=== PATIENT | male | born 1955 | race Caucasian/White ===

== ENCOUNTER 2023-05-29 17:22 | Emergency (ER) | payer BC, SELFPAY ==
[2023-05-29 17:23] VITALS: BP 181/112; PULSE 90; RESP 16; TEMP 36.4; O2SAT 99; BMI 33.5
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
[2023-05-29] MEDS: Diphth,Pertuss(Acell),Tet Vac 0.5 ML Vial IM (18:50)
[2023-05-29] MEDS: Lidocaine 1% (20 ml mdv) 20 ML Vial 5 ML INFILT (18:50)
--- OUTSIDE RECORDS SUMMARY | 2023-05-29 18:56 | XMS RPT_ITS | CCD ---
Author Name Unknown Address [address] [place] [address] Organization [facility] Care Team Providers Care [facility] Name Role Phone Mary Diez MD Primary Care Provider JOSEPHINE SHRESTHA Referring Unavailable MARY DIEZ Primary Care Unavailab JOSEPHINE Brown Referring Unavailable MARY DIEZ Primary Care Unavailab JOSEPHINE Brown Attending Unavailable MARY DIEZ Primary Care Unavailab MARY Fuchs Primary Care Unavailab ARACELIS Ireland Attending Unavailable MARY DIEZ Primary Care Unavailab ARACELIS Ireland Referring Unavailable MARY DIEZ Primary Care Unavailab JEER Abdi Attending Unavailable MARY DIEZ Primary Care Unavailab carlos a TESTJERE RENTERIA Attending Unavailable TESTJERE RENTERIA Referring Unavailable TESTRAJERE PINON Referring Unavailable MARY DIEZ Primary Care Unavailab EDYTA Greene Referring Unavailable TESTJERE RENTERIA Attending Unavailable MARY DIEZ Primary Care Unavailab EDYTA Greene Referring Unavailable MARY DIEZ Primary Care Unavailab MARY Fuchs Referring Unavailab MARY Fuchs Primary Care Unavailab MARY Fuchs Referring Unavailab le MARY DIEZ Primary Care Unavailab le MARY DIEZ Primary Care Unavailab MARY Fuchs Attending UnavailMary Phillips MD Primary Care Provider SEAN GERARDO Attending Unavailable MARY DIEZ Primary Care Unavailable MARY DIEZ Primary Care Unavailable MARY DIEZ Primary Care Unavailable DEVON MAKI Attending Unavailable MARY DIEZ Primary Care Unavailable DEVON MAKI Attending Unavailable [facility] Primary Care Unavailable GLYNN, DEVON Attending Unavailable KAEHLER, SEAN Referring Unavailable [facility] [place] Primary Care Unavailable GLYNN, DEVON Referring Unavailable [facility] [place] Primary Care Unavailable KAEHLER, SEAN Attending Unavailable KAEHLER, SEAN Referring Unavailable [facility] [place] Primary Care Unavailable GLYNN, DEVON Attending Unavailable [facility] [place] Primary Care Unavailable GLYNN, DEVON Admitting Unavailable GLYNN, DEVON Attending Unavailable GLYNN, DEVON Referring Unavailable [facility] [place] Primary Care Unavailable KAEHLER, SEAN Attending Unavailable KAEHLER, SEAN Referring Unavailable [facility] [place] Primary Care Unavailable GLYNN, DEVON Attending Unavailable [facility] Primary Care Unavailable GLYNN, DEVON Attending Unavailable CHELY ACEVEDO Referring Unavailable [facility] Primary Care Unavailable GLYNN, DEVON Admitting Unavailable GLYNN, DEVON Attending Unavailable [facility] Primary Care Unavailable Allergies Allergy Classification Reported Allergen(s) Allergy Type Date of Onset Reaction(s) Facility (20 sources) Onion extract Drug Allergy 08-27-2022 [facility] Medications Current Medications Medication Drug Class(es) Dates Sig (Normalized) Sig (Original) acetaminophen 325 mg / oxyCODONE hydrochloride 5 mg oral tablet (4 sources) Opioid Agonist Start: 01-20-2023 End: 01-27-2023 take 1 tablet by mouth every six hours as needed for pain oxyCODONE-acetami nophen (Percocet) 5-325 MG tablet Indications: Arthritis of ankle Take 1 tablet by mouth every 6 hours as needed for severe pain (7-10) for up to 7 days. 28 tablet 0 01/20/2023 01/27/2023 Active aspirin 81 mg delayed release oral tablet (20 sources) Platelet Aggregation Inhibitor, Nonsteroidal Anti-inflammatory Drug Start: 01-20-2023 End: 02-19-2023 take 1 tablet by mouth every twelve hours aspirin 81 MG EC tablet Indications: DVT prophylaxis after surgery Take 1 tablet (81 mg) by mouth in the morning and 1 tablet (81 mg) in the evening. 60 tablet 0 01/20/2023 02/19/2023 Active Completed/Discontinued Medications Medication Drug Class(es) Dates Sig (Normalized) Sig (Original) acetaminophen 500 mg oral tablet (2 sources) Start: 01-20-2023 End: 01-20-2023 acetaminophen (Tylenol) tablet 1,000 mg Blood Pressure Cuff - Home Use (20 sources) Start: 01-26-2019 Blood Pressure Cuff - Home Use Indications: Elevated blood pressure reading without diagnosis of hypertension BLOOD PRESSURE CUFF FOR HOME USE. DX: LABILE BLOOD PRESSURE 1 Device 0 01/26/2019 Active Problems Active Problems Problem Classification Problem Date Documented Date Episodic/Chronic Diabetes mellitus with complications (3 sources) Polyneuropathy due to type 2 diabetes mellitus; Translations: [Type 2 diabetes mellitus with diabetic polyneuropathy] Onset: 11-19-2022 11-19-2022 Chronic Diabetes mellitus without complication (20 sources) Type 2 diabetes mellitus; Translations: [Type 2 diabetes mellitus without complications] Onset: 10-09-2018 10-09-2018 Chronic Disorders of lipid metabolism (4 sources) Mixed hyperlipidemia; Translations: [Mixed hyperlipidemia] Onset: 04-23-2022 Chronic Essential hypertension (4 sources) Hypertensive disorder; Translations: [Essential (primary) hypertension] Onset: 11-19-2022 Chronic Immunizations and screening for infectious disease (1 source) Patient encounter status; Translations: [Encounter for immunization] Episodic Osteoarthritis (20 sources) Disorder of ankle joint; Translations: [Primary osteoarthritis, unspecified ankle and foot] Onset: 12-28-2021 Chronic Other circulatory disease (4 sources) Elevated blood-pressure reading without diagnosis of hypertension; Translations: [Elevated blood-pressure reading, without diagnosis of hypertension] Episodic Other connective tissue disease (3 sources) Tendinitis of right posterior tibial tendon; Translations: [Posterior tibial tendinitis, right leg] Episodic Other connective tissue disease (1 source) Swelling of lower limb; Translations: [Other specified soft tissue disorders] Episodic Other non-traumatic joint disorders (6 sources) Acute ankle pain; Translations: [Pain in right ankle and joints of right foot] Episodic Other non-traumatic joint disorders (1 source) Ankle pain; Translations: [Pain in right ankle and joints of right foot] Episodic Other nutritional; endocrine; and metabolic disorders (3 sources) Obese class I; Translations: [Obesity, unspecified] Onset: 11-19-2022 11-19-2022 Chronic Sprains and strains (3 sources) Tendon injury - lower limb; Translations: [Strain of muscle(s) and tendon(s) of peroneal muscle group at lower leg level, right leg, initial encounter] Episodic Unclassified (2 sources) Post-op; Translations: [Post-op] Onset: 04-08-2023 Varicose veins of lower extremity (3 sources) Venous varices; Translations: [Asymptomatic varicose veins of unspecified lower extremity] Onset: 11-19-2022 11-19-2022 Episodic Past or Other Problems Problem Classification Problem Date Documented Da te Episodic/Chronic Other aftercare (1 source) half-way (current) use of insulin; Translations: [Type 2 diabetes mellitus without complication, with long-term current use of insulin (HCC)] Onset: 04-23-2022 Episodic Other connective tissue disease (1 source) Other specified soft tissue disorders; Translations: [Localized swelling of lower extremity] Onset: 08-12-2022 Episodic Other non-traumatic joint disorders (3 sources) Pain in right ankle and joints of right foot; Translations: [Acute right ankle pain] Onset: 12-28-2021 Episodic Results Test Name Value Interpretation Reference Range Facil ity Vital Signs Date Time Vital Sign Value Performing Clinician Faci lity 04-08-2023 13:02-0500 Body height 182.9 cm Devon Maki MD Work Phone: [facility] [employer] 04-08-2023 13:02-0500 Body mass index (BMI) [Ratio] 33.09 kg/m2 Devon Maki MD Work Phone: [facility] [employer] 04-08-2023 13:02-0500 Body weight 110.68 kg Devon Maki MD Work Phone: [facility] [employer] 03-04-2023 12:48-0500 Body height 182.9 cm Devon Maki MD Work Phone: [facility] [employer] 03-04-2023 12:48-0500 Body mass index (BMI) [Ratio] 33.09 kg/m2 Devon Maki MD Work Phone: [facility] [employer] 03-04-2023 12:48-0500 Body weight 110.68 kg Devon Maki MD Work Phone: [facility] [employer] 02-02-2023 09:25-0500 Body height 182.9 cm Sean Gerardo PA Work Phone: [facility] [employer] 02-02-2023 09:25-0500 Body mass index (BMI) [Ratio] 33.09 kg/m2 Sean Gerardo PA Work Phone: [facility] [employer] 02-02-2023 09:25-0500 Body weight 110.68 kg Sean Gerardo PA Work Phone: [facility] [employer] 01-20-2023 12:35-0400 Body temperature 98.4 [degF] Devon Maki MD Work Phone: [facility] [employer] 01-20-2023 12:35-0400 Diastolic blood pressure 77 mm[Hg] Devon Maki MD Work Phone: [facility] [employer] 01-20-2023 12:35-0400 Heart rate 86 /min Devon Maki MD Work Phone: [facility] [employer] 01-20-2023 12:35-0400 Respiratory rate 16 /min Devon Maki MD Work Phone: [facility] [employer] 01-20-2023 12:35-0400 SaO2% (BldA) [Mass fraction] 96 % Devon Maki MD Work Phone: [facility] [employer] 01-20-2023 12:35-0400 Systolic blood pressure 117 mm[Hg] Devon Maki MD Work Phone: [facility] [employer] 01-20-2023 06:40-0400 Body height 182.9 cm Devon Maki MD Work Phone: [facility] [employer] 01-20-2023 06:40-0400 Body mass index (BMI) [Ratio] 33.09 kg/m2 Devon Maki MD Work Phone: [facility] [employer] 01-20-2023 06:40-0400 Body weight 110.68 kg Devon Maki MD Work Phone: [facility] [employer] 11-26-2022 12:35-0400 Body height 182.9 cm Devon Maki MD Work Phone: [facility] 11-26-2022 12:35-0400 Body mass index (BMI) [Ratio] 33.91 kg/m2 Devon Maki MD Work Phone: [facility] 11-26-2022 12:35-0400 Body weight 113.4 kg Devon Maki MD Work Phone: [facility] 11-26-2022 12:35-0400 Diastolic blood pressure 78 mm[Hg] Devon Maki MD Work Phone: [facility] 11-26-2022 12:35-0400 Heart rate 76 /min Devon Maki MD Work Phone: [facility] 11-26-2022 12:35-0400 Systolic blood pressure 157 mm[Hg] Devon Maki MD Work Phone: [facility] 11-19-2022 10:28-0400 Diastolic blood pressure 76 mm[Hg] Mary Diez MD Work Phone: [facility] 11-19-2022 10:28-0400 Systolic blood pressure 124 mm[Hg] Mary Diez MD Work Phone: [facility] 11-19-2022 09:03-0400 Body weight 109.95 kg Mary Diez MD Work Phone: [facility] 11-19-2022 09:03-0400 Heart rate 59 /min Mary Diez MD Work Phone: [facility] 11-19-2022 09:03-0400 Respiratory rate 16 /min Mary Diez MD Work Phone: [facility] 11-19-2022 09:03-0400 SaO2% (BldA) [Mass fraction] 98 % Mary Diez MD Work Phone: [facility] 08-27-2022 14:21-0400 Body height 182.9 cm Devon Maki MD Work Phone: [facility] 08-27-2022 14:21-0400 Body mass index (BMI) [Ratio] 33.91 kg/m2 Devon Maki MD Work Phone: [facility] 08-27-2022 14:21-0400 Body weight 113.4 kg Devon Maki MD Work Phone: [facility] 08-27-2022 14:21-0400 Diastolic blood pressure 86 mm[Hg] Devon Maki MD Work Phone: [facility] 08-27-2022 14:21-0400 Systolic blood pressure 140 mm[Hg] Devon Maki MD Work Phone: [facility] 07-29-2022 15:24-0400 Body weight 114.31 kg Josephine Shrestha [employer] Work Phone: [facility] 07-29-2022 15:24-0400 Diastolic blood pressure 86 mm[Hg] Josephine Shrestha [employer]ELOPER Work Phone: [facility] 07-29-2022 15:24-0400 Heart rate 64 /min Josephine Shrestha [employer]EL[employer] Work Phone: [facility] 07-29-2022 15:24-0400 Respiratory rate 16 /min Josephine Shrestha [employer]ELOPER Work Phone: [facility] 07-29-2022 15:24-0400 Systolic blood pressure 134 mm[Hg] Josephine Shrestha [employer]ELOPER Work Phone: [facility] 04-30-2022 15:02-0500 Body weight 112.49 kg Aracelis Antoine [employer]ELOPER Work Phone: [facility] 04-30-2022 15:02-0500 Diastolic blood pressure 78 mm[Hg] Aracelis Billingsleylogana [employer]ELOPER Work Phone: [facility] 04-30-2022 15:02-0500 Heart rate 85 /min Aracelis Antoine [employer]ELOPER Work Phone: [facility] 04-30-2022 15:02-0500 SaO2% (BldA) [Mass fraction] 98 % Aracelis Antoine [employer]ELOPER Work Phone: [facility] 04-30-2022 15:02-0500 Systolic blood pressure 138 mm[Hg] Aracelis Antoine [employer]ELOPER Work Phone: [facility] 12-03-2021 12:39-0400 Diastolic blood pressure 80 mm[Hg] Mi Nurse Work Phone: [facility] 12-03-2021 12:39-0400 Heart rate 57 /min Mi Nurse Work Phone: [facility] 12-03-2021 12:39-0400 Systolic blood pressure 138 mm[Hg] Mi Nurse Work Phone: [facility] 11-20-2021 09:06-0400 Body weight 108.5 kg Edyta Nunes [employer] Work Phone: [facility] 11-20-2021 09:06-0400 Diastolic blood pressure 62 mm[Hg] Edyta Nunes [employer]ELOPER Work Phone: [facility] 11-20-2021 09:06-0400 Heart rate 58 /min Edyta Nunes [employer]ELOPER Work Phone: [facility] 11-20-2021 09:06-0400 Respiratory rate 16 /min Edyta Nunes [employer]ELOPER Work Phone: [facility] 11-20-2021 09:06-0400 Systolic blood pressure 136 mm[Hg] Edyta Nunes [employer]ELOPER Work Phone: [facility] 11-06-2021 15:21-0400 Diastolic blood pressure 83 mm[Hg] Mi Nurse Work Phone: [facility] 11-06-2021 15:21-0400 Heart rate 48 /min Mi Nurse Work Phone: [facility] 11-06-2021 15:21-0400 Systolic blood pressure 179 mm[Hg] Mi Nurse Work Phone: [facility] 10-23-2021 09:45-0400 Diastolic blood pressure 85 mm[Hg] Mi Nurse Work Phone: [facility] 10-23-2021 09:45-0400 Heart rate 63 /min Mi Nurse Work Phone: [facility] 10-23-2021 09:45-0400 Systolic blood pressure 155 mm[Hg] Mi Nurse Work Phone: [facility] 10-07-2021 15:37-0400 Diastolic blood pressure 83 mm[Hg] Aracelis Podlogar [employer]ELOPER Work Phone: [facility] 10-07-2021 15:37-0400 Heart rate 62 /min Aracelis Podlogar [employer]ELOPER Work Phone: [facility] 10-07-2021 15:37-0400 Systolic blood pressure 160 mm[Hg] Aracelis Podlogar [employer]ELOPER Work Phone: [facility] 10-07-2021 14:52-0400 Body temperature 97.2 [degF] Aracelis Podlogar [employer]ELOPER Work Phone: [facility] 10-07-2021 14:52-0400 Body weight 107.05 kg Aracelis Podlogar [employer]ELOPER Work Phone: [facility] 10-07-2021 14:52-0400 Respiratory rate 18 /min Aracelis Podlogar [employer] DEVELOPER Work Phone: [facility] 10-07-2021 14:52-0400 SaO2% (BldA) [Mass fraction] 96 % Aracelis Podlogar [employer]ELOPER Work Phone: [facility] Encounters Encounter Date Encounter Type Care Provider Facility Start: 04-08-2023 End: 04-08-2023 ambulatory DEVON MAKI [facility] Start: 04-08-2023 End: 04-09-2023 ambulatory SEAN GERARDO [facility] Start: 04-08-2023 End: 04-08-2023 Postop follow up visit related to original px Devon Maki MD Work Phone: [facility] Procedures Date Procedure Procedure Detail Performing Clinician Start: 01-20-2023 Glucose quantitative blood xcpt reagent strip Devon Maki MD Work Phone: Start: 01-20-2023 FL GUIDANCE OR USE O NLY - NON-RESULTABLE Devon Maki MD Work Phone: Start: 01-20-2023 Glucose quantitative blood xcpt reagent strip Devon Maki MD Work Phone: Start: 11-26-2022 Follow-up visit Follow-up DEVON MAKI Start: 12-28-2021 Radex ankle complete minimum 3 views Jere Yovani Work Phone: Start: 12-11-2021 Mri any jt lower ext rem w/o contrast matrl Edyta Nunes [employer]ELOPER Work Phone: Start: 10-06-2021 Adult depression scr eening assessment Aracelis Antoine [employer]EL[employer] Work Phone: Start: 11-02-2018 Adult depression scr eening assessment Mary Diez MD Work Phone: Plan of Treatment Date Care Activity Detail Author Start: 09-24-2026 Urine microalbumin profile DTA P,TDAP,TD (2 - Td or Tdap) [facility] Start: 05-07-2024 COLOGUARD (FIT-DNA) COLOGUARD (FIT-D NA) [facility] Start: 05-07-2024 COLORECTAL CANCER SCREENING COLORECTAL CANCER SCREENING [facility] Start: 11-20-2023 3 comp foot exam completed DIABETIC FOOT EXAM [facility] Start: 11-20-2023 ANNUAL PCP TEAM DIE FORGER BRANDON DISEASE VISIT ANNUAL PCP TEAM CHRONIC DISEASE VISIT [facility] Start: 11-20-2023 BP CONTROLLED (<130/80) BP CONTROLLE D (<130/80) [facility] Start: 11-20-2023 COVID-19 VACCINE (4 - Moderna series) COVID-19 VACCINE (4 - Moderna series) [facility] Immunizations Immunization Date Immunization Notes Care Provider Valente blevins 10-07-2021 zoster vaccine recombinant Aracelis Antoine [employer]EL[employer] Work Phone: [facility] 04-10-2021 zoster vaccine recombinant Mary Diez MD Work Phone: [facility] Payers Date Payer Category Payer Unknown ELIZABETH VIZCARRA PPO [id number] 2019-Present [phone] [address] [place] [address] PPO [id number] 2019 Unknown [id number] 2019 Unknown [id number] Social History Date Type Detail Facility Start: 09-25-2018 End: 11-06-2021 Tobacco smoking status NHIS Ex-smoker [facility] Work Phone: Start: 09-25-2018 End: 08-27-2022 Tobacco use and exposure Smokeless tobacco non-user [facility] Work Phone: Start: 04-10-2021 End: 11-19-2022 Alcohol intake Ex-drinker (finding) [facility] Start: 09-25-2018 End: 11-06-2021 Tobacco Comment teenager, less than 1 year [facility] Start: 1955 Sex Assigned At Not on file [facility] Start: 09-19-2021 End: 11-26-2022 Exposure to SARS-CoV-2 (event) Not sure [facility] Start: 10-06-2021 History SDOH Alcohol Frequency 3 [facility] Start: 10-06-2021 History SDOH Alcohol Std Drinks 1 [facility] Start: 10-06-2021 History SDOH Social Connections Phone 5 [facility] Start: 10-06-2021 History SDOH Social Connections Get Together 4 [facility] Start: 10-06-2021 History SDOH Transport Med 2 [facility] History of tobacco use Current smoker [facility] Work Phone: Start: 08-27-2022 End: 11-19-2022 Tobacco smoking status ALIS Never smoked tobacco [facility] Start: 08-27-2022 End: 01-14-2023 History of Social function [facility] Start: 08-27-2022 End: 01-14-2023 Tobacco use panel [facility] Do you belong to any clubs or organizations such as denominational groups, unions, fraternal or athletic groups, or school groups? Yes [facility] Are you now , , , , never or living with a partner? [facility] How often to you hav e a drink containing alcohol? 2-4 times a month [facility] How many standard dr inks containing alcohol do you have on a typical day? 1 or 2 [facility] Frequency of Binge Drinking Not on file [facility] Do you feel stress - tense, restless, nervous, or anxious, or unable to sleep at night because your mind is troubled all the time - these days [OSQ] Not at all [facility] (I/We) worried whe er (my/our) food would run out before (I/we) got money to buy more. Never true [facility] In the past 12 month s, was there a time when you were not able to pay the mortgage or rent on time? No [facility] Start: 11-19-2022 Tobacco Comment Less than 100 cigarettes in his life [facility] Start: 01-20-2023 End: 04-08-2023 Alcohol intake Current drinker of alcohol (finding) [facility] Start: 01-20-[address] [facility] Medical Equipment Procedure Code Equipment Code Equipment Origin al Text Equipment Identifier Dates Test blood sugar (s) 1-2 times daily. Dx: Type 2 DM - Uncontrolled [id number] Insulin: No Start: 10-09-2018 Clinical Notes 06-23-2021 to 04-08-2023 Devon Maki MD - 04/08/2023 1:00 PM Jacinto Maki MD - 03/04/2023 1:30 PM ESTTelephone Encounter - Ange Rivera MA - 02/16/2023 4:12 PM FIDEL Villasenor - 02/02/2023 9:00 AM EST Note Date & Type Note Facility 04-08-2023 History of Presen t illness Narrative Images from the original note were not included. [facility] [address] [place] [id number] Dept: [phone] Dept Guilherme Saab 1955 [id number] 04/08/2023 HISTORY OF PRESENT ILLNESS: Guilherme is here for his 3 month(s) postoperative visit s/p right ankle and subtalar joint open fusion on 01/20/23. Guilherme reports that his pain has decreased since the surgery/last visit Guilherme reports that his swelling has decreased since the last visit Guilherme had been instructed to be weight bearing as tolerated on the right lower extremity. Guilherme has been compliant with his weight bearing restrictions. Has walked short distances at home in his shoe with no issues, heel pain is better in shoe than in boot Guilherme has not gone to PT. Guilherme denies fevers and chills and has not had calf pain or shortness of breath In general Guilherme feels that he has been doing well since the surgery Other issues or concerns that Guilherme would like addressed at this visit: he has no other issues or concerns to discuss Review of Systems Surgical Risk Factors: Allergies to Metals or Latex: NO Have you been treated for a blood clot: NO Have you had a history of bleeding disorder: NO Have you had a history of Anesthetic problems: NO Do you have tendency to bruise easily: NO Do you experience prolonged or excessive bleeding from cuts or after surgery: NO General/Constitutional: General: no Cancer: NO Acute/Chronic Infections: NO HEENT/Neck: Problems with theThroat: NO Problems with the Eyes: NO Problems with the Ears: NO Problems with the Nose and Sinuses: NO Endocrine: Problems with Diabetes: yes Problems with Thyroid Disorder: NO Thorax: Problems with the Heart: NO Problems with the Lung: no Cardiovascular: Problems with Circulation: NO Problems with High Blood pressure: yes Gastrointestinal: Problems with Ulcers: NO Problems with the Liver: no Problems with Bowel Habits: NO Genitourinary: Problems with the Genitals: NO Urinary problems: NO Kidney disease or stones: NO Skin: Any general problems: NO Neurologic: Dizziness, blurred vision, headaches, problems with balance : NO Seizures or Stroke: NO Psychiatric: Emotional or Psychological disorders: NO Depression or Anxiety: no PAST MEDICAL HISTORY: Past Medical History: Diagnosis Date Diabetes mellitus (HCC) Hyperlipidemia Hypertension Primary localized osteoarthrosis of ankle and foot RIGHT ANKLE ; SCHEDULED FOR THE SURGERY ON 01/20/23 AT [facility] Allergies Allergen Reactions Onion intolarance PHYSICAL EXAM: This is an age appropriate appearing male who is alert and oriented x 3. The patient appears well nourished. The patient is able to verbalize normally and seems to have a good understanding of his situation. Normocephalic and atraumatic Respiratory: No shortness of breath The right lower extremity is examined. Skin: ruborous in a dependent position Lymphatic: Moderate swelling of the ankle and hindfoot Vascular: Capillary refill in the foot/toes is brisk Neurologic: Sensation is intact except over the surgical incision site(s) Musculoskeletal: The calf is nontender to palpation. The patient is able to actively move the ankle/foot/toes The incisions are healed and benign Tenderness: no areas of tenderness on exam Gait: Near normal ambulation RADIOGRAPHIC INTERPRETATION: 3 weight bearing views of the Right ankle were obtained and the following is my interpretation of the findings present of the X-rays: continued healing of the subtalar joint and tibiotalar joint noted, more prominently in the subtalar joint. Hindfoot nail is in place with no signs of loosening or failure. Two screws in calcaneus without signs of loosening or failure, talar screw possibly has backed out slightly but is difficult to tell based on previously obtained imaging angles. REVIEW OF RELATED PREVIOUS DOCUMENTATION: No documents related to the current problem(s) were reviewed or no documents were available for review. LABORATORY RESULT INTERPRETATION: No labs were reviewed/No labs available for review DIAGNOSIS: Diagnosis Plan 1. Arthritis of ankle DME Order for Lace up brace MEDICAL DECISION MAKING: I had a discussion with Guilherme to make sure he has a good understanding of the diagnoses/issues that I think are present today and understands the plan moving forward. Guilherme is doing well overall. We discussed the plan moving forward. Guilherme will be seen back in 3 months. Elevation Instructions: Guilherme can have the foot/ankle down in a dependent position for as long as it is comfortable and should elevate if the foot/ankle becomes uncomfortable. Dressing instructions: Not applicable Shoe/Boot Instructions: Guilherme can now use a regular shoe. I want Guilherme to start transitioning from his aircast boot to a good supportive shoe. I want Guilherme to start by trying to walk in their shoe for one hour today and increase his shoe wear by one hour per day until he is able to spend a whole day in the shoe without pain. I instructed Guilherme to put the aircast boot back on if he starts to have increasing pain or swelling that is uncomfortable. I want Guilherme to start with a good stable shoe that will allow for swelling if present. If he is having trouble making the transition from the aircast boot to a shoe over the next few weeks then I want Guilherme to call me. Guilherme was given a brace today and was instructed on its use and care. I explained to Guilherme that the brace is meant to provide support to the ankle and it will restrict motion somewhat as well and it is hoped that this will help relieve some of his symptoms but may not completely resolve his current issue(s). If he has any problems or concerns regarding the brace or if it is not helping, he was instructed to call the office. Weight Bearing Instructions: Guilherme was instructed to be weight bearing as tolerated on the right lower extremity in his regular shoe with the lace-up ankle brace. If Guilherme has any problems maintaining this weight bearing status he was instructed to call me so that appropriate instructions can be given. Medications: No medication prescriptions were given/sent at today's visit. Xray at next visit: 3 weight bearing views Right ankle Follow up in about 3 months (around 07/08/2023) for Visit with Imaging, Post-Op. Electronically signed by Devon Maki MD [facility] Department of Orthopedic surgery 04/08/2023 4:17 PM Voice recognition was used for portions of this note and although it was reviewed prior to signing some incorrect words or phrases could be present. documented in this encounter [facility] 03-04-2023 History of Presen t illness Narrative Images from the original note were not included. [facility] [address] [place] [id number] Dept: [phone] Dept Guilherme Saab 1955 [id number] 03/04/2023 HISTORY OF PRESENT ILLNESS: Guilherme is here for his 6 week(s) postoperative visit s/p right ankle and subtalar joint fusion on 01/20/23. Guilherme reports that his pain has been minimal Guilherme reports that his swelling has been minimal Guilherme had been instructed to be nonweight bearing on the right lower extremity. Guilherme has been compliant with his weight bearing restrictions Guilherme has not started therapy yet Guilherme denies fevers and chills and has not had calf pain or shortness of breath In general Guilherme feels that he has been doing well since the surgery Other issues or concerns that Guilherme would like addressed at this visit: he has no other issues or concerns to discuss Review of Systems Surgical Risk Factors: Allergies to Metals or Latex: NO Have you been treated for a blood clot: NO Have you had a history of bleeding disorder: NO Have you had a history of Anesthetic problems: NO Do you have tendency to bruise easily: NO Do you experience prolonged or excessive bleeding from cuts or after surgery: NO General/Constitutional: General: no Cancer: NO Acute/Chronic Infections: NO HEENT/Neck: Problems with theThroat: NO Problems with the Eyes: NO Problems with the Ears: NO Problems with the Nose and Sinuses: NO Endocrine: Problems with Diabetes: yes Problems with Thyroid Disorder: NO Thorax: Problems with the Heart: NO Problems with the Lung: no Cardiovascular: Problems with Circulation: NO Problems with High Blood pressure: yes Gastrointestinal: Problems with Ulcers: NO Problems with the Liver: no Problems with Bowel Habits: NO Genitourinary: Problems with the Genitals: NO Urinary problems: NO Kidney disease or stones: NO Skin: Any general problems: NO Neurologic: Dizziness, blurred vision, headaches, problems with balance : NO Seizures or Stroke: NO Psychiatric: Emotional or Psychological disorders: NO Depression or Anxiety: no PAST MEDICAL HISTORY: Past Medical History: Diagnosis Date Diabetes mellitus (HCC) Hyperlipidemia Hypertension Primary localized osteoarthrosis of ankle and foot RIGHT ANKLE ; SCHEDULED FOR THE SURGERY ON 01/20/23 AT [facility] Allergies Allergen Reactions Onion intolarance PHYSICAL EXAM: This is an age appropriate appearing male who is alert and oriented x 3. The patient appears well nourished. The patient is able to verbalize normally and seems to have a good understanding of his situation. Normocephalic and atraumatic Respiratory: No shortness of breath The right lower extremity is examined. Skin: ruborous in a dependent position Lymphatic: Moderate swelling of the ankle Vascular: Capillary refill in the foot/toes is brisk Neurologic: Sensation is intact except over the surgical incision site(s) Musculoskeletal: The calf is nontender to palpation. The patient is able to actively move the ankle/foot/toes The incisions are healed and benign Tenderness: no areas of tenderness on exam Gait: Guilherme was examined in a wheelchair/gurney and gait was not evaluated RADIOGRAPHIC INTERPRETATION: 3 nonweightbearing views of the Right ankle were obtained and the following is my interpretation of the findings present of the X-rays: intact orthopedic hardware noted with no signs of loosening or failure. Interval bone healing noted of the fusions of the subtalar and tibiotalar joints. Intra-operative fibular cut noted. REVIEW OF RELATED PREVIOUS DOCUMENTATION: No documents related to the current problem(s) were reviewed or no documents were available for review. LABORATORY RESULT INTERPRETATION: No labs were reviewed/No labs available for review DIAGNOSIS: Diagnosis Plan 1. Arthritis of ankle MEDICAL DECISION MAKING: I had a discussion with Guilherme to make sure he has a good understanding of the diagnoses/issues that I think are present today and understands the plan moving forward. Guilherme is doing well overall. We discussed the plan moving forward. Guilherme will be seen back in 6 weeks. Elevation Instructions: Guilherme can have the foot/ankle down in a dependent position for as long as it is comfortable and should elevate if the foot/ankle becomes uncomfortable. Dressing instructions: Dressings were discontinued at a previous appointment. Shoe/Boot Instructions: Guilherme will stay in the boot he already has.. Guilherme can remove his boot for sleep, for bathing, anytime they are sitting or laying down and for ROM exercises which were discussed and demonstrated today. Weight Bearing Instructions: Guilherme was instructed to be weight bearing as tolerated on the right lower extremity in the aircast boot. If Guilherme has any problems maintaining this weight bearing status he was instructed to call me so that appropriate instructions can be given. Medications: No medication prescriptions were given/sent at today's visit. Xray at next visit: 3 weight bearing views Right ankle We discussed holding off on physical therapy at this time as there is not much for them to do currently, but if he feels he is struggling with gait at his next appointment we can send him for some physical therapy. Follow up in about 6 weeks (around 04/15/2023) for Visit with Imaging, Post-Op. Electronically signed by Devon Maki MD [facility] Department of Orthopedic surgery 03/04/2023 4:56 PM Voice recognition was used for portions of this note and although it was reviewed prior to signing some incorrect words or phrases could be present. documented in this encounter [facility] 02-16-2023 Telephone encounter Note [facility]aled [facility], [address], [facility] [address]. I also scanned a copy of the letter mailed with the form. [facility] 02-16-2023 Miscellaneous Notes Appealed mailed to [facility] Appeals, [address], [facility] [address]. I also scanned a copy of the letter mailed with the form. Right faxed to fax number given This is done Pt returning call with fax # [phone] Attention: Eliza Saab Thank you! Received [facility] determination of appeal. I notified the patient, he will call me back with a fax number to send the appeal to him to sign so we can start on the second external appeal on his behalf. They are indicating that he did not have standing xrays, but he has had [facility] xrays prior. I sent throught [employer] as well, It looks like patient is pretty active on it. documented in this encounter [facility] 02-15-2023 Telephone encounter Note Right faxed to fax number given This is done [facility] 02-10-2023 Telephone encounter Note Pt returning call with fax # [phone] Attention: Eliza Saab Thank you! [facility] 02-10-2023 Telephone encounter Note Received [employer] determination of appeal. I notified the patient, he will call me back with a fax number to send the appeal to him to sign so we can start on the second external appeal on his behalf. They are indicating that he did not have standing xrays, but he has had [facility] xrays prior. I sent throught [employer] as well, It looks like patient is pretty active on it. [facility] 02-02-2023 History of Presen t illness Narrative Images from the original note were not included. [facility] [address] [place] [address] [address] [facility] [address] Dept: [phone] Dept Guilherme Saab 1955 [id number] 02/02/2023 HISTORY OF PRESENT ILLNESS: Guilherme is here for his 2 week(s) postoperative visit s/p right ankle and subtalar joint open fusion. Guilherme reports that his pain has been minimal Guilherme reports that his swelling has been minimal Guilherme had been instructed to be nonweight bearing on the right lower extremity. Guilherme has been compliant with his weight bearing restrictions Guilherme has not started therapy yet Guilherme denies fevers and chills and has not had calf pain or shortness of breath In general Guilherme feels that he has been doing well since the surgery Other issues or concerns that Guilherme would like addressed at this visit: he has no other issues or concerns to discuss Review of Systems Surgical Risk Factors: Allergies to Metals or Latex: NO Have you been treated for a blood clot: NO Have you had a history of bleeding disorder: NO Have you had a history of Anesthetic problems: NO Do you have tendency to bruise easily: NO Do you experience prolonged or excessive bleeding from cuts or after surgery: NO General/Constitutional: General: no Cancer: NO Acute/Chronic Infections: NO HEENT/Neck: Problems with theThroat: NO Problems with the Eyes: NO Problems with the Ears: NO Problems with the Nose and Sinuses: NO Endocrine: Problems with Diabetes: yes Problems with Thyroid Disorder: NO Thorax: Problems with the Heart: NO Problems with the Lung: no Cardiovascular: Problems with Circulation: NO Problems with High Blood pressure: yes Gastrointestinal: Problems with Ulcers: NO Problems with the Liver: no Problems with Bowel Habits: NO Genitourinary: Problems with the Genitals: NO Urinary problems: NO Kidney disease or stones: NO Skin: Any general problems: NO Neurologic: Dizziness, blurred vision, headaches, problems with balance : NO Seizures or Stroke: NO Psychiatric: Emotional or Psychological disorders: NO Depression or Anxiety: no PAST MEDICAL HISTORY: Past Medical History: Diagnosis Date Diabetes mellitus (HCC) Hyperlipidemia Hypertension Primary localized osteoarthrosis of ankle and foot RIGHT ANKLE ; SCHEDULED FOR THE SURGERY ON 01/20/23 AT [facility] Allergies Allergen Reactions Onion intolarance PHYSICAL EXAM: This is an age appropriate appearing male who is alert and oriented x 3. The patient appears well nourished. The patient is able to verbalize normally and seems to have a good understanding of his situation. Normocephalic and atraumatic Respiratory: No shortness of breath The right lower extremity is examined. Skin: ruborous in a dependent position Lymphatic: Moderate swelling of the ankle, hindfoot, and midfoot Vascular: Capillary refill in the foot/toes is brisk Neurologic: Sensation is intact except over the surgical incision site(s) Musculoskeletal: The calf is nontender to palpation. The patient is able to actively move the ankle/foot/toes The incisions are healing well with good skin approximation and no drainage. Sutures removed in office. Tenderness: no areas of tenderness on exam Gait: Gait not evaluated RADIOGRAPHIC INTERPRETATION: No xrays were obtained or reviewed REVIEW OF RELATED PREVIOUS DOCUMENTATION: No documents related to the current problem(s) were reviewed or no documents were available for review. LABORATORY RESULT INTERPRETATION: No labs were reviewed/No labs available for review DIAGNOSIS: Diagnosis Plan 1. Arthritis of ankle DME Order for Aircast Boot MEDICAL DECISION MAKING: I had a discussion with Guilherme to make sure he has a good understanding of the diagnoses/issues that I think are present today and understands the plan moving forward. Guilherme is doing well overall. We discussed the plan moving forward. Guilherme will be seen back in 4 weeks. Elevation Instructions: Guilherme can have the foot/ankle down in a dependent position for as long as it is comfortable and should elevate if the foot/ankle becomes uncomfortable. Dressing instructions: Guilherme was instructed to start wearing a sock after today's visit Shoe/Boot Instructions: Guilherme was placed in an aircast boot today and given instructions on how to put it on and take it off and how to care for the boot. We explained that each time the boot is taken off the air needs to be removed from the boot so that when Guilherme puts it on the next time, his foot/ankle will fit properly. We explained that the foot and ankle should fit securely in the boot only on correctly and filled with enough air to make it snug but not tight. If Guilherme has pain caused by the boot or if he has any skin irritation from the boot, he was instructed to remove the boot and call the office for instructions. Guilherme can take the boot off for sleep, for bathing and to work on ROM of hisankle, foot and toes several times a day. Guilherme can remove his boot for sleep, for bathing, anytime they are sitting or laying down and for ROM exercises which were discussed and demonstrated today. Weight Bearing Instructions: Guilherme was instructed to be nonweight bearing on the right lower extremity in the aircast boot. If Guilherme has any problems maintaining this weight bearing status he was instructed to call me so that appropriate instructions can be given. Medications: No medication prescriptions were given/sent at today's visit. Xray at next visit: 3 nonweight bearing views Right ankle Follow up in about 4 weeks (around 03/02/2023) for Visit with Imaging, Post-Op. Electronically signed by FIDEL Bennett [facility] Department of Orthopedic surgery 02/02/2023 3:30 PM Voice recognition was used for portions of this note and although it was reviewed prior to signing some incorrect words or phrases could be present. documented in this encounter [facility] 01-20-2023 Note Patient: Guilherme Saab Procedure Summary Date: 01/20/23 Room / Location: [address] Operating Room Anesthesia Start: 805 Anesthesia Stop: 1118 Procedures: RIGHT OPEN ANKLE FUSION, SUBTALAR JOINT FUSION (Right: Ankle) ARTHRODESIS FOOT SUBTALAR (Right: Foot) Diagnosis: Primary osteoarthritis, unspecified ankle and foot (Primary osteoarthritis, unspecified ankle and foot [M19.079]) Surgeons: Devno Maki MD Responsible Provider: Alexei Betts Jr., MD Anesthesia Type: general, regional ASA Status: 2 Anesthesia Type: general, regional Vitals Value Taken Time BP 113/73 01/20/23 1121 Temp 99.3 01/20/23 1125 Pulse 91 01/20/23 1125 Resp 23 01/20/23 1125 SpO2 100 % 01/20/23 1125 Vitals shown include unfiled device data. Anesthesia Post Evaluation Patient location during evaluation: PACU Patient participation: waiting for patient participation Level of consciousness: responsive to verbal stimuli Pain management: satisfactory to patient Airway patency: patent Dental Injury: no Cardiovascular status: acceptable, blood pressure returned to baseline and hemodynamically stable Respiratory status: acceptable and spontaneous ventilation Hydration status: euvolemic Nausea/Vomiting: controlled No notable events documented. Patient can be discharged once all PACU criteria has been met. [facility] 01-20-2023 Note Patient: Guilherme Saab Procedure Summary Date: 01/20/23 Room / Location: [address] Operating Room Anesthesia Start: 805 Anesthesia Stop: 1118 Procedures: RIGHT OPEN ANKLE FUSION, SUBTALAR JOINT FUSION (Right: Ankle) ARTHRODESIS FOOT SUBTALAR (Right: Foot) Diagnosis: Primary osteoarthritis, unspecified ankle and foot (Primary osteoarthritis, unspecified ankle and foot [M19.079]) Surgeons: Devon Maki MD Responsible Provider: Alexei Betts Jr., MD Anesthesia Type: general, regional ASA Status: 2 Anesthesia Type: general, regional Vitals Value Taken Time BP 113/73 01/20/23 1121 Temp 99.3 01/20/23 1124 Pulse 93 01/20/23 1124 Resp 17 01/20/23 1124 SpO2 100 % 01/20/23 1124 Vitals shown include unfiled device data. Anesthesia Post Evaluation Patient location during evaluation: PACU Patient participation: waiting for patient participation Level of consciousness: responsive to verbal stimuli Pain score: 0 Pain management: satisfactory to patient Multimodal analgesia pain management approach Airway patency: patent Two or more strategies used to mitigate risk of obstructive sleep apnea Cardiovascular status: acceptable and hemodynamically stable Respiratory status: acceptable Hydration status: acceptable No notable events documented. MIPS #430 PONV Patient received an inhalational anesthetic (4554F) Patient does not exhibit three or more risk factors for PONV (X0430)) MIPS # 424 Perioperative Temperature Management Anesthesia time was 60 minutes or longer (4255F) Anesthesai administered was General (inhalational or TIVA) or Neuraxial block (X0424) At least one body temperature greater than 95.8F/35.5C achieved within the 30 mins immediately prior to or the 15 minutes immediately following anesthesia end time (G9771) MIPS #477 Multimodal Pain Management Not emergent case Patient was administered multimodal pain management (two or more drugs and/or interventions excluding systemic opioids) in the periopeartive period occurring at some time between 6 hours prior to anesthesia start time until discharged from PACU (G2148) MIPS #404 Anesthesiology Smoking Abstinence The patient is not a current smoker (e.g. cigarette, cigar, pipe, e-cigarette/vaping/marijuana) If no stop here (G9644) I completed my handoff to the receiving clinician during which we: 1. Identified the patient 2. Identified the responsible provider 3. Reviewed the pertinent medical history 4. Discussed the surgical course 5. Reviewed intra-op anesthesia management and issues during anesthesia 6. Set expectations for post-procedure period 7. Allowed opportunity for questions and acknowledgement of understanding. [facility] 01-20-2023 Miscellaneous Notes Phase II indicated, pt awake and talking, VS stable, pt dressed and ambulated to wheelchair without difficulty, home going instructions reviewed with patient, verbal understanding demonstrated and opportunity given for questions Pt sitting up and tolerating ice water, per request and at bedside Pt received from OR via cart, spont. Resp. With PRINCIPAL GIFTS OFFICER in attendance. Placed on monitor. Monitor alarms on in PACU Pre-operative Diagnosis: Right ankle and subtalar arthrosis Post-operative Diagnosis: Same Procedure: Right ankle and subtalar joint open fusion Components used: Synthes hindfoot fusion nail Anesthesia: General + regional Surgeon: Glynn Assistants: Akin Flores Estimated Blood Loss: 200 mL Complications: None Specimens: No Medications: Ancef 2 g IV and TXA 1 g IV Operative findings: Arthrosis of both the ankle and subtalar joints was present. The ankle and subtalar joints were debrided of all articular cartilage and with the ankle in a neutral position and in a few degrees of external rotation and the subtalar joint in 5 degree of valgus the hindfoot fusion nail was placed. Solid fixation was achieved utilizing the rosalinda. History of present illness: Guilherme is a 67 y.o. 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 Due to the arthrosis and his failure to respond to non-operative treatments, I made a recommendation for primary fusion with a hindfoot fusion nail. Operative report: I met with Guilherme in the preoperative area prior to the procedure and discussed the surgical plan once again and answered all of his questions related to the procedure and the expected post-operative course. The risks of surgery were discussed including but not limited to the risks of medications given for surgery, the risk of blood loss during and after surgery that can lead to the need for blood products in certain situations, infection, damage to normal structures that can lead to correction problems of pain or dysfunction, wound healing complications, possibility of fusion nonunion or malunion and late or chronic pain as a result of the surgical intervention. In addition potentially life threatening complications that can occur at the time of surgery and after surgery were discussed including but not limited to deep vein thrombosis, pulmonary embolism, myocardial infarction, stroke and . I initialed his Right lower extremity and signed his consent form. Guilherme was then taken for a popliteal block by the anesthesia staff. Guilherme was then brought to the operating room and placed in the supine position on the Operating Room table. Care was taken to identify and pad all bony prominences. A general anesthetic was then given by the anesthesia staff and an endotracheal tube was placed by the anesthesia staff. At all times during the operative procedure the patient's head neck and airway were protected by the anesthesia staff. A tourniquet was applied to the proximal thigh over cast padding. Total tourniquet time was less than 2 hours. The patient was then placed in a lateral decubitus position with the right side being up and and an axillary roll was placed on the left. The patient was checked to ensure all prominences were padded and the peroneal nerve at the knee was padded. The Right lower extremity was then prepped and draped in the usual orthopedic sterile fashion. A surgical timeout was then performed with the patient's identification, the procedure to be performed being reviewed with the consent form, verification that the patient had received preoperative antibiotics, and verification of the correct surgical side. Everyone in the operating room stopped what they were doing in order to participate in the timeout. This timeout was performed by myself, the circulating room nurse and the anesthesia staff. The patient's ASA was verified by the nurse dispatcher maintenance and the anesthesia staff. Fire risk was assessed. The operative extremity was then exanguinated using an Esmarch bandage and the tourniquet was inflated. A lateral sided incision was made over the lateral malleolus starting proximal to the ankle joint and syndesmosis. At the tip of the lateral malleolus the incision was curved along the tarsal sinus. The skin and subcutaneous tissues were divided with care taken to protect branches of the sural nerve and the superficial peroneal nerve. The incision was deepend down to the lateral malleolus. The lateral malleolus was fully exposed as was the lateral portion of the distal tibia. The distal portion of the incision was curved at the tip of the lateral malleolus creating a tarsal sinus approach. Kira retractors were then placed posterior and medial to the fibular shaft 12 cm proximal to the ankle joint. A small oscillating saw was then used to osteotomize the fibular shaft. The distal end of the fibula was then removed by detaching all remaining soft tissue attachments.The joint capsules for the ankle and subtalar joints were exposed and divided allowing for visualization of both joints. The joints were distracted using a pin distractor. The articular cartilage of the joints were then removed using currets, ronguers, osteotomes, and a myles. Once both the talar dome articular cartilage and the distal tibia articular cartilage was fully removed the opposing bone surfaces were scaled using a quarter-inch osteotome to increase the surface area for fusion and to provide areas for vascular channel ingrowth. The subtalar joint was prepared for fusion. Subtalar joint preparation constituted just the posterior facet portion of the joint. The subtalar joint was prepared for fusion using currets, ronguers, osteotomes, and a myles. A quarter-inch osteotome was then used to scaled the opposing bony surfaces of the subtalar joint. The ankle was then placed in neutral dorsiflexion and slight external rotation and the subtalar joint in 5 of valgus. A 3.2 mm threaded guidepin was then placed fluoroscopically on the plantar aspect of the calcaneus. The pin was started on the lateral view at the level of the lateral talar process. It was centered over the calcaneus and a medial lateral plane as well. This placed the pin in the distal third of the calcaneus as seen on the lateral fluoroscopic view. Once an adequate starting point was well visualized on the lateral view the pin was advanced across the calcaneus and across the subtalar joint into the talus. An AP view was then obtained to ensure that this pin was centered on the talus within the central portion of the talar dome as seen on the AP fluoroscopic view. The lateral view was once again checked to ensure that the pin crossed the subtalar joint at the level of the lateral talar process. The ankle was kept in a dorsiflexed position during this insertion. Once adequate pin placement had been performed a skin incision was placed over the plantar aspect of the heel with the center of the incision being the pin entry point. Blunt dissection was carried down with the hemostat through the soft tissues until the calcaneus was encountered. A soft tissue protector was placed and reaming was carried out to the tip of the pin but the cartilage of the talus was not violated. The reamer and guidepin were then removed. A 5 mm drill was then placed through the reamed tunnel and pushed through the articular cartilage of the talus. This drill was then centered on both the AP and lateral views in the tibial plafond and such that it would be in a center center position within the intramedullary canal on both the AP and lateral views once fully seated. When adequate placement had been achieved the drill was used to drill a 5 mm hole into the distal tibial plafond. The drill was removed and a ball-tipped guidewire was placed through the plantar incision, through the calcaneus, across the subtalar joint, across the talus and into the distal tibia. A ball-tipped guidewire was then advanced under fluoroscopic imaging on AP and lateral views within the instrumented canal of the tibia. Once the ball-tipped guidewire was correctly positioned it was measured and it was decided to place a 240 mm length nail. Reaming of the tibia was then carried up to a size 11 reamer. This reaming was performed over the ball-tipped guidewire. The reamer was then removed and a size 244 mm length by 10 mm diameter Synthes hindfoot fusion nail was placed over the ball-tipped guidewire with the valgus bend of the nail being maintained. This placed the hindfoot in 5 of valgus. Once the nail was fully seated as verified on lateral fluoroscopic imaging the external outrigger was placed in the P position and was utilized to place a helical blade through a posterior incision. The helical blade was placed after an appropriate incision was made, a 3.2 mm guidepin was first placed and verified in terms of its position and length on fluoroscopic imaging in the lateral plane. The outer cortex of the posterior tuberosity calcaneus was entered using an entry reamer and then the helical blade dressing room attendant was used placing it over the guidepin until the helical blade was fully seated. The length of the helical blade was 75 mm. A 6 mm diameter calcaneal locking screw was then placed just above the helical blade again using the outrigger as a guide. Appropriate drilling and measuring was performed prior to screw placement. The subtalar joint was then compressed by advancing the nail in a proximal direction by hitting the endcap with a mallet. A locking screw was then placed into the talus. This was performed by setting the outrigger to the T position and placing a drill sleeve through the talar slot until it rested on the posteriolateral talus. Drilling was then carried out under flouroscopic guidance. An appropriate length 6 mm diameter screw was then placed. The ankle joint was then compressed by advancing the nail in a proximal direction by hitting the endcap with a mallet. The outrigger was then switched from the L position to the end position for the lateral tibial locking screws. Utilizing the guide a single 5 mm screw was placed through the dynamic slotted hole in the rosalinda. This screw was placed after drilling through outrigger guide and measuring the depth through the lateral incision. A locking endcap was then placed within the distal end of the rosalinda. Final fluoroscopic images were obtained in AP oblique and lateral planes of the ankle and tibia to ensure proper alignment of the ankle and subtalar joints and to ensure proper position of the nail and screws. The helical blade endcap screw was then placed through the plantar incision site and threaded into the distal end of the hindfoot fusion nail and was locked into place holding the nail and helical blade in a locked position. The tourniquet was then released and any active bleeding was controlled using Bovie cautery. The wounds were thoroughly irrigated with copious amounts of sterile saline. The subcutaneous tissues were then closed utilizing 2-0 Vicryl. The skin was then closed utilizing 3-0 nylon. Dry sterile dressings were then applied. Guilherme was then awakened from his anesthetic, transferred to his hospital bed and taken to the recovery room in stable medical condition. Post-operative plan: Follow-up: Guilherme will follow-up in 2 weeks for his first post-operative check. Suture removal: his incision(s) was/were closed with nylon and the sutures can be removed if the incision(s) appear(s) healed Shoe instructions: At the first post-operative visit Guilherme will will be placed in a tall Aircast boot and will be allowed to remove the boot for sleep, for bathing and for ROM of the foot and ankle. Weight bearing: Guilherme will be instructed to be nonweight bearing on the right lower extremity in the aircast boot following the 2 week visit and this will be continued until the 6 week office visit. Follow-up plan with Dr Maki after 2 week visit: Guilherme should be scheduled to see Dr Maki at 6 weeks post-op for re-evaluation X-rays at 6 week follow-up: Guilherme will need 3 nonweight bearing views of the right ankle at the 6 week post-op visit documented in this encounter [facility] 01-20-2023 Note Formatting of this n ote might be different from the original. Phase II indicated, pt awake and talking, VS stable, pt dressed and ambulated to wheelchair without difficulty, home going instructions reviewed with patient, verbal understanding demonstrated and opportunity given for questions [facility] 01-20-2023 Note Formatting of this n ote might be different from the original. Phase II indicated, pt awake and talking, VS stable, pt dressed and ambulated to wheelchair without difficulty, home going instructions reviewed with patient, verbal understanding demonstrated and opportunity given for questions [facility] 01-20-2023 Note Formatting of this n ote might be different from the original. Pt sitting up and tolerating ice water, per request and at bedside [facility] 01-20-2023 Note Formatting of this n ote might be different from the original. Pt sitting up and tolerating ice water, per request and at bedside [facility] 01-20-2023 Note Formatting of this n ote might be different from the original. Pt received from OR via cart, spont. Resp. With PRINCIPAL GIFTS OFFICER in attendance. Placed on monitor. Monitor alarms on in PACU [facility] 01-20-2023 Note Formatting of this n ote might be different from the original. Pt received from OR via cart, spont. Resp. With PRINCIPAL GIFTS OFFICER in attendance. Placed on monitor. Monitor alarms on in PACU [facility] 01-20-2023 Note Airway Date/Time: 01/20/2023 8:12 AM Urgency: scheduled Airway not difficult General Information and Staff Patient location during procedure: Procedural Anesthesiologist: Alexei Betts Jr., MD Resident/PRINCIPAL GIFTS OFFICER: FRAN Cano CRNA Performed: PRINCIPAL GIFTS OFFICER Performed by: FRAN Cano CRNA Authorized by: FRAN Cano CRNA Indications and Patient Condition Indications for airway management: airway protection and anesthesia Sedation level: Asleep Preoxygenated: yes Mask difficulty assessment: 0 - not attempted Final Airway Details Final airway type: supraglottic airway Successful airway: Igel Size 5 Number of attempts at approach: 1 [facility] 01-20-2023 Note Peripheral Block Time Out: 01/20/2023 7:47 AM Patient location during procedure: holding area Start time: 01/20/2023 7:48 AM End time: 01/20/2023 8:00 AM Reason for block: at surgeon's request and post-op pain management Staffing Performed: KIMBERLY Resident/PRINCIPAL GIFTS OFFICER: FRAN Cano CRNA Preanesthetic Checklist Completed: patient identified, IV checked, site marked, risks and benefits discussed, surgical consent, monitors and equipment checked, pre-op evaluation and timeout performed Region: Lower Extremities Primary: Popliteal Secondary: Saphenous Peripheral Block Patient position: supine Prep: ChloraPrep Patient monitoring: heart rate, continuous pulse ox and court monitor O2: Room air Laterality: right Injection technique: single-shot Guidance: nerve stimulator and ultrasound guided -image retained in chart, tip of the needle identified by ultraound during injection. Local infiltration: lidocaine Infiltration strength: 1 % Dose: 3 mL Needle Needle: 22G X 80 mm Additional Notes 10 mL 0.5% Ropivacaine plain Saphenous 40 mL 0.375% Bupivacaine HCL with decadron sodium phosphate 0.01% & Epi 1:200,000 PF 01/20/2023 7:48 AM Assessment Injection assessment: negative aspiration for heme, no paresthesia on injection, incremental injection and local visualized surrounding nerve on ultrasound Paresthesia pain: none Heart rate change: no Slow fractionated injection: yes Required Documentation: Relevant anatomy identified (Nerves, Vessels, Muscles), Negative for blood on aspiration, Local anesthetic injected incrementally with intermittent aspiration every 5 mL, Normal resistance with injection, Local anesthetic spread visualized around nerves or plane., No EKG changes noted, No symptoms of toxicity and No paresthesias reported by patient during injection [facility] 01-20-2023 Note H&P reviewed. The fidel pro was examined and there are no changes to the H&P. [facility] 01-20-2023 Note Formatting of this n ote might be different from the original. 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 The ankle and subtalar joints were debrided of all articular cartilage and with the ankle in a neutral position and in a few degrees of external rotation and the subtalar joint in 5 degree of valgus the hindfoot fusion nail was placed. Solid fixation was achieved utilizing the rosalinda. History of present illness: Guilherme is a 67 y.o. 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 Due to the arthrosis and his failure to respond to non-operative treatments, I made a recommendation for primary fusion with a hindfoot fusion nail. Operative report: I met with Guilherme in the preoperative area prior to the procedure and discussed the surgical plan once again and answered all of his questions related to the procedure and the expected post-operative course. The risks of surgery were discussed including but not limited to the risks of medications given for surgery, the risk of blood loss during and after surgery that can lead to the need for blood products in certain situations, infection, damage to normal structures that can lead to intermediate designer problems of pain or dysfunction, wound healing complications, possibility of fusion nonunion or malunion and late or chronic pain as a result of the surgical intervention. In addition potentially life threatening complications that can occur at the time of surgery and after surgery were discussed including but not limited to deep vein thrombosis, pulmonary embolism, myocardial infarction, stroke and . I initialed his Right lower extremity and signed his consent form. Guilherme was then taken for a popliteal block by the anesthesia staff. Guilherme was then brought to the operating room and placed in the supine position on the Operating Room table. Care was taken to identify and pad all bony prominences. A general anesthetic was then given by the anesthesia staff and an endotracheal tube was placed by the anesthesia staff. At all times during the operative procedure the patient's head neck and airway were protected by the anesthesia staff. A tourniquet was applied to the proximal thigh over cast padding. Total tourniquet time was less than 2 hours. The patient was then placed in a lateral decubitus position with the right side being up and and an axillary roll was placed on the left. The patient was checked to ensure all prominences were padded and the peroneal nerve at the knee was padded. The Right lower extremity was then prepped and draped in the usual orthopedic sterile fashion. A surgical timeout was then performed with the patient's identification, the procedure to be performed being reviewed with the consent form, verification that the patient had received preoperative antibiotics, and verification of the correct surgical side. Everyone in the operating room stopped what they were doing in order to participate in the timeout. This timeout was performed by myself, the circulating room nurse and the anesthesia staff. The patient's ASA was verified by the nurse dispatcher maintenance and the anesthesia staff. Fire risk was assessed. The operative extremity was then exanguinated using an Esmarch bandage and the tourniquet was inflated. A lateral sided incision was made over the lateral malleolus starting proximal to the ankle joint and syndesmosis. At the tip of the lateral malleolus the incision was curved along the tarsal sinus. The skin and subcutaneous tissues were divided with care taken to protect branches of the sural nerve and the superficial peroneal nerve. The incision was deepend down to the lateral malleolus. The lateral malleolus was fully exposed as was the lateral portion of the distal tibia. The distal portion of the incision was curved at the tip of the lateral malleolus creating a tarsal sinus approach. Kira retractors were then placed posterior and medial to the fibular shaft 12 cm proximal to the ankle joint. A small oscillating saw was then used to osteotomize the fibular shaft. The distal end of the fibula was then removed by detaching all remaining soft tissue attachments.The joint capsules for the ankle and subtalar joints were exposed and divided allowing for visualization of both joints. The joints were distracted using a pin distractor. The articular cartilage of the joints were then removed using currets, ronguers, osteotomes, and a myles. Once both the talar dome articular cartilage and the distal tibia articular cartilage was fully removed the opposing bone surfaces were scaled using a quarter-inch osteotome to increase the surface area for fusion and to provide areas for vascular channel ingrowth. The subtalar joint was prepared for fusion. Subtalar joint preparation constituted just the posterior facet portion of the joint. The subtalar joint was prepared for fusion using currets, ronguers, osteotomes, and a myles. A quarter-inch osteotome was then used to scaled the opposing bony surfaces of the subtalar joint. The ankle was then placed in neutral dorsiflexion and slight external rotation and the subtalar joint in 5 of valgus. A 3.2 mm threaded guidepin was then placed fluoroscopically on the plantar aspect of the calcaneus. The pin was started on the lateral view at the level of the lateral talar process. It was centered over the calcaneus and a medial lateral plane as well. This placed the pin in the distal third of the calcaneus as seen on the lateral fluoroscopic view. Once an adequate starting point was well visualized on the lateral view the pin was advanced across the calcaneus and across the subtalar joint into the talus. An AP view was then obtained to ensure that this pin was centered on the talus within the central portion of the talar dome as seen on the AP fluoroscopic view. The lateral view was once again checked to ensure that the pin crossed the subtalar joint at the level of the lateral talar process. The ankle was kept in a dorsiflexed position during this insertion. Once adequate pin placement had been performed a skin incision was placed over the plantar aspect of the heel with the center of the incision being the pin entry point. Blunt dissection was carried down with the hemostat through the soft tissues until the calcaneus was encountered. A soft tissue protector was placed and reaming was carried out to the tip of the pin but the cartilage of the talus was not violated. The reamer and guidepin were then removed. A 5 mm drill was then placed through the reamed tunnel and pushed through the articular cartilage of the talus. This drill was then centered on both the AP and lateral views in the tibial plafond and such that it would be in a center center position within the intramedullary canal on both the AP and lateral views once fully seated. When adequate placement had been achieved the drill was used to drill a 5 mm hole into the distal tibial plafond. The drill was removed and a ball-tipped guidewire was placed through the plantar incision, through the calcaneus, across the subtalar joint, across the talus and into the distal tibia. A ball-tipped guidewire was then advanced under fluoroscopic imaging on AP and lateral views within the instrumented canal of the tibia. Once the ball-tipped guidewire was correctly positioned it was measured and it was decided to place a 240 mm length nail. Reaming of the tibia was then carried up to a size 11 reamer. This reaming was performed over the ball-tipped guidewire. The reamer was then removed and a size 244 mm length by 10 mm diameter Synthes hindfoot fusion nail was placed over the ball-tipped guidewire with the valgus bend of the nail being maintained. This placed the hindfoot in 5 of valgus. Once the nail was fully seated as verified on lateral fluoroscopic imaging the external outrigger was placed in the P position and was utilized to place a helical blade through a posterior incision. The helical blade was placed after an appropriate incision was made, a 3.2 mm guidepin was first placed and verified in terms of its position and length on fluoroscopic imaging in the lateral plane. The outer cortex of the posterior tuberosity calcaneus was entered using an entry reamer and then the helical blade dressing room attendant was used placing it over the guidepin until the helical blade was fully seated. The length of the helical blade was 75 mm. A 6 mm diameter calcaneal locking screw was then placed just above the helical blade again using the outrigger as a guide. Appropriate drilling and measuring was performed prior to screw placement. The subtalar joint was then compressed by advancing the nail in a proximal direction by hitting the endcap with a mallet. A locking screw was then placed into the talus. This was performed by setting the outrigger to the T position and placing a drill sleeve through the talar slot until it rested on the posteriolateral talus. Drilling was then carried out under flouroscopic guidance. An appropriate length 6 mm diameter screw was then placed. The ankle joint was then compressed by advancing the nail in a proximal direction by hitting the endcap with a mallet. The outrigger was then switched from the L position to the end position for the lateral tibial locking screws. Utilizing the guide a single 5 mm screw was placed through the dynamic slotted hole in the rosalinda. This screw was placed after drilling through outrigger guide and measuring the depth through the lateral incision. A locking endcap was then placed within the distal end of the rosalinda. Final fluoroscopic images were obtained in AP oblique and lateral planes of the ankle and tibia to ensure proper alignment of the ankle and subtalar joints and to ensure proper position of the nail and screws. The helical blade endcap screw was then placed through the plantar incision site and threaded into the distal end of the hindfoot fusion nail and was locked into place holding the nail and helical blade in a locked position. The tourniquet was then released and any active bleeding was controlled using Bovie cautery. The wounds were thoroughly irrigated with copious amounts of sterile saline. The subcutaneous tissues were then closed utilizing 2-0 Vicryl. The skin was then closed utilizing 3-0 nylon. Dry sterile dressings were then applied. Guilherme was then awakened from his anesthetic, transferred to his hospital bed and taken to the recovery room in stable medical condition. Post-operative plan: Follow-up: Guilherme will follow-up in 2 weeks for his first post-operative check. Suture removal: his incision(s) was/were closed with nylon and the sutures can be removed if the incision(s) appear(s) healed Shoe instructions: At the first post-operative visit Guilherme will will be placed in a tall Aircast boot and will be allowed to remove the boot for sleep, for bathing and for ROM of the foot and ankle. Weight bearing: Guilherme will be instructed to be nonweight bearing on the right lower extremity in the aircast boot following the 2 week visit and this will be continued until the 6 week office visit. Follow-up plan with Dr Maki after 2 week visit: Guilherme should be scheduled to see Dr Maki at 6 weeks post-op for re-evaluation X-rays at 6 week follow-up: Guilherme will need 3 nonweight bearing views of the right ankle at the 6 week post-op visit [employer] Phone: 01-20-2023 Note Formatting of this n ote might be different from the original. 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 The ankle and subtalar joints were debrided of all articular cartilage and with the ankle in a neutral position and in a few degrees of external rotation and the subtalar joint in 5 degree of valgus the hindfoot fusion nail was placed. Solid fixation was achieved utilizing the rosalinda. History of present illness: Guilherme is a 67 y.o. 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 Due to the arthrosis and his failure to respond to non-operative treatments, I made a recommendation for primary fusion with a hindfoot fusion nail. Operative report: I met with Guilherme in the preoperative area prior to the procedure and discussed the surgical plan once again and answered all of his questions related to the procedure and the expected post-operative course. The risks of surgery were discussed including but not limited to the risks of medications given for surgery, the risk of blood loss during and after surgery that can lead to the need for blood products in certain situations, infection, damage to normal structures that can lead to correction problems of pain or dysfunction, wound healing complications, possibility of fusion nonunion or malunion and late or chronic pain as a result of the surgical intervention. In addition potentially life threatening complications that can occur at the time of surgery and after surgery were discussed including but not limited to deep vein thrombosis, pulmonary embolism, myocardial infarction, stroke and . I initialed his Right lower extremity and signed his consent form. Guilherme was then taken for a popliteal block by the anesthesia staff. Guilherme was then brought to the operating room and placed in the supine position on the Operating Room table. Care was taken to identify and pad all bony prominences. A general anesthetic was then given by the anesthesia staff and an endotracheal tube was placed by the anesthesia staff. At all times during the operative procedure the patient's head neck and airway were protected by the anesthesia staff. A tourniquet was applied to the proximal thigh over cast padding. Total tourniquet time was less than 2 hours. The patient was then placed in a lateral decubitus position with the right side being up and and an axillary roll was placed on the left. The patient was checked to ensure all prominences were padded and the peroneal nerve at the knee was padded. The Right lower extremity was then prepped and draped in the usual orthopedic sterile fashion. A surgical timeout was then performed with the patient's identification, the procedure to be performed being reviewed with the consent form, verification that the patient had received preoperative antibiotics, and verification of the correct surgical side. Everyone in the operating room stopped what they were doing in order to participate in the timeout. This timeout was performed by myself, the circulating room nurse and the anesthesia staff. The patient's ASA was verified by the nurse dispatcher maintenance and the anesthesia staff. Fire risk was assessed. The operative extremity was then exanguinated using an Esmarch bandage and the tourniquet was inflated. A lateral sided incision was made over the lateral malleolus starting proximal to the ankle joint and syndesmosis. At the tip of the lateral malleolus the incision was curved along the tarsal sinus. The skin and subcutaneous tissues were divided with care taken to protect branches of the sural nerve and the superficial peroneal nerve. The incision was deepend down to the lateral malleolus. The lateral malleolus was fully exposed as was the lateral portion of the distal tibia. The distal portion of the incision was curved at the tip of the lateral malleolus creating a tarsal sinus approach. Kira retractors were then placed posterior and medial to the fibular shaft 12 cm proximal to the ankle joint. A small oscillating saw was then used to osteotomize the fibular shaft. The distal end of the fibula was then removed by detaching all remaining soft tissue attachments.The joint capsules for the ankle and subtalar joints were exposed and divided allowing for visualization of both joints. The joints were distracted using a pin distractor. The articular cartilage of the joints were then removed using currets, ronguers, osteotomes, and a myles. Once both the talar dome articular cartilage and the distal tibia articular cartilage was fully removed the opposing bone surfaces were scaled using a quarter-inch osteotome to increase the surface area for fusion and to provide areas for vascular channel ingrowth. The subtalar joint was prepared for fusion. Subtalar joint preparation constituted just the posterior facet portion of the joint. The subtalar joint was prepared for fusion using currets, ronguers, osteotomes, and a myles. A quarter-inch osteotome was then used to scaled the opposing bony surfaces of the subtalar joint. The ankle was then placed in neutral dorsiflexion and slight external rotation and the subtalar joint in 5 of valgus. A 3.2 mm threaded guidepin was then placed fluoroscopically on the plantar aspect of the calcaneus. The pin was started on the lateral view at the level of the lateral talar process. It was centered over the calcaneus and a medial lateral plane as well. This placed the pin in the distal third of the calcaneus as seen on the lateral fluoroscopic view. Once an adequate starting point was well visualized on the lateral view the pin was advanced across the calcaneus and across the subtalar joint into the talus. An AP view was then obtained to ensure that this pin was centered on the talus within the central portion of the talar dome as seen on the AP fluoroscopic view. The lateral view was once again checked to ensure that the pin crossed the subtalar joint at the level of the lateral talar process. The ankle was kept in a dorsiflexed position during this insertion. Once adequate pin placement had been performed a skin incision was placed over the plantar aspect of the heel with the center of the incision being the pin entry point. Blunt dissection was carried down with the hemostat through the soft tissues until the calcaneus was encountered. A soft tissue protector was placed and reaming was carried out to the tip of the pin but the cartilage of the talus was not violated. The reamer and guidepin were then removed. A 5 mm drill was then placed through the reamed tunnel and pushed through the articular cartilage of the talus. This drill was then centered on both the AP and lateral views in the tibial plafond and such that it would be in a center center position within the intramedullary canal on both the AP and lateral views once fully seated. When adequate placement had been achieved the drill was used to drill a 5 mm hole into the distal tibial plafond. The drill was removed and a ball-tipped guidewire was placed through the plantar incision, through the calcaneus, across the subtalar joint, across the talus and into the distal tibia. A ball-tipped guidewire was then advanced under fluoroscopic imaging on AP and lateral views within the instrumented canal of the tibia. Once the ball-tipped guidewire was correctly positioned it was measured and it was decided to place a 240 mm length nail. Reaming of the tibia was then carried up to a size 11 reamer. This reaming was performed over the ball-tipped guidewire. The reamer was then removed and a size 244 mm length by 10 mm diameter Synthes hindfoot fusion nail was placed over the ball-tipped guidewire with the valgus bend of the nail being maintained. This placed the hindfoot in 5 of valgus. Once the nail was fully seated as verified on lateral fluoroscopic imaging the external outrigger was placed in the P position and was utilized to place a helical blade through a posterior incision. The helical blade was placed after an appropriate incision was made, a 3.2 mm guidepin was first placed and verified in terms of its position and length on fluoroscopic imaging in the lateral plane. The outer cortex of the posterior tuberosity calcaneus was entered using an entry reamer and then the helical blade dressing room attendant was used placing it over the guidepin until the helical blade was fully seated. The length of the helical blade was 75 mm. A 6 mm diameter calcaneal locking screw was then placed just above the helical blade again using the outrigger as a guide. Appropriate drilling and measuring was performed prior to screw placement. The subtalar joint was then compressed by advancing the nail in a proximal direction by hitting the endcap with a mallet. A locking screw was then placed into the talus. This was performed by setting the outrigger to the T position and placing a drill sleeve through the talar slot until it rested on the posteriolateral talus. Drilling was then carried out under flouroscopic guidance. An appropriate length 6 mm diameter screw was then placed. The ankle joint was then compressed by advancing the nail in a proximal direction by hitting the endcap with a mallet. The outrigger was then switched from the L position to the end position for the lateral tibial locking screws. Utilizing the guide a single 5 mm screw was placed through the dynamic slotted hole in the rosalinda. This screw was placed after drilling through outrigger guide and measuring the depth through the lateral incision. A locking endcap was then placed within the distal end of the rosalinda. Final fluoroscopic images were obtained in AP oblique and lateral planes of the ankle and tibia to ensure proper alignment of the ankle and subtalar joints and to ensure proper position of the nail and screws. The helical blade endcap screw was then placed through the plantar incision site and threaded into the distal end of the hindfoot fusion nail and was locked into place holding the nail and helical blade in a locked position. The tourniquet was then released and any active bleeding was controlled using Bovie cautery. The wounds were thoroughly irrigated with copious amounts of sterile saline. The subcutaneous tissues were then closed utilizing 2-0 Vicryl. The skin was then closed utilizing 3-0 nylon. Dry sterile dressings were then applied. Guilherme was then awakened from his anesthetic, transferred to his hospital bed and taken to the recovery room in stable medical condition. Post-operative plan: Follow-up: Guilherme will follow-up in 2 weeks for his first post-operative check. Suture removal: his incision(s) was/were closed with nylon and the sutures can be removed if the incision(s) appear(s) healed Shoe instructions: At the first post-operative visit Guilherme will will be placed in a tall Aircast boot and will be allowed to remove the boot for sleep, for bathing and for ROM of the foot and ankle. Weight bearing: Guilherme will be instructed to be nonweight bearing on the right lower extremity in the aircast boot following the 2 week visit and this will be continued until the 6 week office visit. Follow-up plan with Dr Maki after 2 week visit: Guilherme should be scheduled to see Dr Maki at 6 weeks post-op for re-evaluation X-rays at 6 week follow-up: Guilherme will need 3 nonweight bearing views of the right ankle at the 6 week post-op visit [employer] Phone: 01-20-2023 Hospital Discharg e instructions FIDEL Bennett - 01/20/2023 7:44 AM EDT Images from the original note were not included. SPLINT INSTRUCTIONS Keep your splint clean and dry. Do not put anything down in the splint to scratch. If your splint gets wet or starts to feel uncomfortable call Dr Maki immediately ([phone]). If you see any blood on the outside bandage reinforce it on the surface with gauze and an nick bandage and call Dr Maki [phone]. Do not walk or stand on your splint. You can rest the splint on the floor but do not put weight on it. You should get up and move around once or twice an hour based on your comfort level. You are not to be at bed rest meaning you need to get up and move around in order to prevent blood clots. It is OK to wiggle your toes and you can contract your calf muscle inside the splint as well. When you put your foot down it is normal for the toes to turn a bluish or purple color. Once you elevate the foot for a few minutes a normal pink color should return underneath the toenails. If the color does not change within 10 minutes after elevating call Dr. Maki. If you were given a boot by our office or by an emergency department/urgent care prior to surgery, please bring it to your first post-operative appointment with you as we will take off the splint at this appointment and will most likely transition you into the boot. ELEVATION Keep your foot/ankle elevated for comfort. Elevating your foot/ankle is the best way to control your swelling and pain. Elevation means keeping the toes at the level of your nose. If your leg is not elevated to that height then it is not truly elevated. This is Elevated This is not Elevated MEDICATIONS You have been given a prescription for a narcotic medication that is intended for postoperative pain control. This medication should be used judiciously to try and minimize your discomfort after surgery. The medication will not relieve all of your pain and you should not take large amounts of the medication in an attempt to be pain free. Please understand that narcotic medications can be addictive and they are intended to decrease but not eliminate your pain and should therefore be used in moderation. If you have questions regarding taking the narcotic medication and other medications that you are currently on please call the office. You cannot drive or operate machinery while taking the narcotic medication. You should not drink alcohol or use recreational drugs while taking the narcotic medication.The [facility] restricts the amount of pain pills that can be legally prescribed and no more than one prescription in a week can be given. If you require a refill of the pain medication it requires that someone come to the office in person as it cannot be called in to the pharmacy or E-prescribed. Please understand that there is a limit to the total amount of pain medication that can be prescribed so make every effort to take it only when needed. Unless otherwise instructed by Dr Maki you can take an over the counter anti-inflammatory to help with your pain as well. This includes but is not limited to Ibuprofen, Advil, Motrin, Alleve, etc. A prescription for baby aspirin was sent to your pharmacy and Dr. Maki wants you to take one tablet twice a day for 30 days after surgery. If you have any issues with the medication call Dr. Maki. This is intended to try to prevent blood clots. A prescription for a Vitamin D supplement was sent to your pharmacy to help your bone to heal. If you have any issues with the supplement call Dr. Maki. WEIGHTBEARING INSTRUCTIONS Dr Maki wants you to be nonweight bearing on the right lower extremity. You will continue this weight bearing restriction for the next 6 weeks If you have any problems maintaining this weight bearing status please call the office so that appropriate instructions can be given. FREQUENTLY ASKED QUESTIONS FREQUENTLY ASKED QUESTIONS If I am supposed to be non-weight bearing on the operative foot/ankle can I still rest the foot on the ground when I am sitting? Yes, it is OK to rest your operative foot on the ground when you are sitting. Is it normal to feel a cervantes of fluid or pressure in my foot/ankle when I put it down? Yes, after most foot, ankle or leg surgeries it is very common to feel immediate swelling or pressure in your foot, ankle and leg. Is it OK to put ice on my foot/ankle to help with the swelling and pain? After foot/ankle surgery elevating the foot/ankle is much better at relieving pain and swelling than ice. In many cases you bandage prevents the cold from getting to your skin. At your 2 week visit when your bandage is removed, icing the foot/ankle works much better and you can start it then. If I received a nerve block before surgery, how long will it last? A single shot nerve block can last anywhere from 8 hours to 36 hours on average, some patients' single shot blocks stop sooner and some can go a little longer. A catheter block (pain ball) lasts longer when you have it dialed down and it runs out faster if you have it dialed up. For most patients it lasts for a day and a half to 3 days. Can I shower or bathe after surgery? Yes, you can shower or bathe after surgery but you have to put a plastic bag over your splint/dressing to keep the splint/bandage absolutely dry. The splint/bandage is like a sponge and any water that gets in can damage your skin or cause your incision/incisions to open up and get infected. If your splint/bandage gets water in it, call Dr. Maki's office ([phone]) immediately and you will be instructed which office can see your the quickest to change your splint/bandage. FIDEL Bennett - 01/20/2023 7:44 AM EDT Weight-bearing and post-operative activity Dr Maki wants you to be nonweight bearing on the right lower extremity. You will continue this weight bearing restriction for the next 6 weeks If you have any problems maintaining this weight bearing status please call the office so that appropriate instructions can be given. Dr. Maki wants you to get up once per hour during the day to move around for a few minutes while following the above weight bearing orders. He does not want you to be in bed or on a couch all day not getting up. Getting up and moving once per hour helps to promote blood flow and is one way of trying to prevent a blood clot. Remember that when you get up it is normal for your foot/toes to change color and for you to feel fluid, pressure or throbbing (your heart beat) in your foot or toes. When you return to sitting down or laying down elevate your foot as it will lessen your swelling and be more comfortable. If you are having a hard time moving around during the day, let Dr Maki know. FIDEL Bennett - 01/20/2023 7:44 AM EDT Good nutrition is important when healing from an illness, injury, or surgery. Follow any nutrition recommendations given to you during your hospital stay. If you were given an oral nutrition supplement while in the hospital, continue to take this supplement at home. You can take it with meals, in-between meals, and/or before bedtime. These supplements can be purchased at most local grocery stores, pharmacies, and chain [employer]stores. If you have any questions about your diet or nutrition, call the hospital and ask for the dietitian. The following attachments cannot be sent through Care Everywhere.Moderate Sedation in Adults Discharge Instructions (Tamazight)documented in this encounter [facility] 01-20-2023 Attending History and physical note H&P reviewed. The patient was examined and there are no changes to the H&P. Source Note - Sat Pro Villegas PA-C - 01/14/2023 12:30 PM EDT Comprehensive PreSurgical History and Physical ? Name: Guilherme Saab : 1955 (Age-67 y.o.) Date of Service: Pt seen/examined on 01/14/2023 Procedure Information Date/Time: 01/20/23 0800 Procedures: RIGHT OPEN ANKLE FUSION, SUBTALAR JOINT FUSION (Right: Ankle) - 3 hours ARTHRODESIS FOOT SUBTALAR (Right: Foot) Location: [address] Operating Room Surgeons: Devon Maki MD Chief Complaint: RIGHT ANKLE /FOOT PAIN AND IT MAKE GRINDING NOISE GOING UP AND DOWN THE STEPS ASSESSMENT/PLAN: Patient is considered intermediate risk for this intermediate risk procedure/surgery noted above with no reducible risk factors. Based on the above evaluation, the benefits of the planned procedure likely exceed the risks. The patient is medically optimized to proceed with the planned procedure without any further cardiopulmonary testing. 1) RIGHT ANKLE PAIN DUE TO OA OF RIGHT ANKLE Managed per surgery 2) DM ; ON METFORMIN 3) HTN ; ON LISINOPRIL 4) HYPERLIPIDEMIA ; ON LIPITOR Visit Type: Pre-Admission Testing Visit Labs Ordered: NO - COMPLETE PRIOR TO PAT VISIT DONE ON 11/19/22 Sleep Referral Ordered: NO - NEGATIVE SCREEN PER SLEEP REFERRAL PROTOCOL Total time spent (which include face to face and non face to face encounters) : 40 minutes Toxic drug monitoring/narrow therapeutic index drug monitoring : # Drug name : LISINOPRIL # Route administered : ORALLY # Method of monitoring : LAB AND EKG PAT Protocol referenced includes: 1. Anesthesia Lab Protocol Orders 2. Perioperative Cardiovascular Risk Assessment 3. Anesthesia Assessment 4. Pain Assessment and Acute Pain Service Consult (if appropriate) 5. Medical Clearance/Consult from Internal Medicine ([facility]) 6. Shower/Wash Order (for designated surgeries) 7. GRACIELA Screen and Sleep Clinic Referral (if appropriate) History Of Present Illness: 67 y.o. male who presents with chief complaint mentioned above. Patient came to PAT along with his Per surgeon's note dated 08/27/22 Guilherme is a 67 y.o. male here today for evaluation of his right foot Guilherme states the problem has been present for 1 year. 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 Patient noted swelling, and stiffness in his right ankle. He reports having a grinding sensation going up and down steps. He reports there is a grinding sensation in his ankle while doing the steps. He has neuropathy and does not have any pain associated with the swelling or the symptoms in the ankle. He recalls having broken his ankle when he was a child and was in a cast for a period of time. Guilherme states the problem started gradually with no injuries occurring Guilherme has tried or has been treated with the following: walking aids (crutches, cane, a walker,knee scooter,wheelchair, etc) and OTC shoe inserts. Pt has seen the surgeon and elected for above procedure. Denies Hx of Asthma/COPD, GRACIELA, CAD, CHF, a fib, [place], TIA/CVA, DVT/PE Hx problems with anesthesia? - Denies Dental? - some missing teeth on the bottom nothing loose or broken no partials or dentures crowns Snore at night? - Past Medical History: Past Medical History: No date: Diabetes mellitus (HCC) No date: Hyperlipidemia No date: Hypertension No date: Primary localized osteoarthrosis of ankle and foot Comment: RIGHT ANKLE ; SCHEDULED FOR THE SURGERY ON 01/20/23 AT [facility] Past Surgical History: Past Surgical History: No date: TONSILLECTOMY Medications Prior to Admission: Current Outpatient Medications: atorvastatin (Lipitor) 20 MG tablet, TAKE 1 TABLET BY MOUTH ONCE DAILY AT BEDTIME FOR CHOLESTEROL, Disp: , Rfl: ELDERBERRY PO, Take by mouth., Disp: , Rfl: lisinopril 20 MG tablet, Take 20 mg by mouth daily., Disp: , Rfl: metFORMIN (Glucophage) 500 MG tablet, Take 500 mg by mouth., Disp: , Rfl: naproxen (Naprosyn) 250 MG tablet, Take by mouth., Disp: , Rfl: PAPAYA PO, Take by mouth., Disp: , Rfl: CHRONIC NARCOTIC USE: No Allergies: Onion If patient has opioid allergy, is it okay to take Acetaminophen: Yes Social History: TOBACCO: reports that he has never smoked. He has never used smokeless tobacco. ETOH: reports current alcohol use. Social History Substance and Sexual Activity Drug Use Never Family History: No family history on file. REVIEW OF SYSTEMS: Review of Systems Constitutional: Negative for fever. Respiratory: Negative for shortness of breath. Cardiovascular: Negative for chest pain. Gastrointestinal: Negative for nausea. Skin: Negative for pallor and rash. Pertinent positives as noted in the HPI. Physical Exam: Physical Exam Vitals and nursing note reviewed. Constitutional: Appearance: Normal appearance. HENT: Head: Normocephalic and atraumatic. Mouth/Throat: Mouth: Mucous membranes are moist. Cardiovascular: Rate and Rhythm: Normal rate and regular rhythm. Pulmonary: Effort: Pulmonary effort is normal. Breath sounds: Normal breath sounds. Musculoskeletal: General: Normal range of motion. Cervical back: Normal range of motion and neck supple. Skin: General: Skin is warm. Neurological: General: No focal deficit present. Mental Status: He is alert and oriented to person, place, and time. Psychiatric: Mood and Affect: Mood normal. Behavior: Behavior normal. Vitals: Vitals Value Taken Time BP 177/92 01/14/23 1258 Temp 37.1 C (98.7 F) 01/14/23 1247 Pulse 69 01/14/23 1258 Resp 16 01/14/23 1231 SpO2 97 % 01/14/23 1258 BP (!) 177/92 Pulse 69 Temp 37.1 C (98.7 F) (Temporal) Resp 16 Ht 1.829 m (6') Wt 112 kg (246 lb) SpO2 97% BMI 33.36 kg/m Labs: No results found for: WBC , HGB , HCT , MCV , PLT No results found for: NA , K , CL , CO2 , BUN , CREATININE , GLUCOSE , CALCIUM , PROT , BILIRUBINFL , ALKPHOS , AST , ALT , EGFR , GLOB Nima's Simple Cardiac Risk Index: Interpretation: 0 Points Class I 0.5% 1 Point Class II 1.3% 2 Points Class III 3.6% 3+ Points Class IV 9.1% METS Walk indoors, such as around the house (1.75 METs), Do light work around the house, such as dusting or washing dishes (2.70 METs), Take care of self, that is eating, dressing, bathing, using the toilet (2.75 METs), Do moderate work around the house such as vacuuming, sweeping floors, or carrying in groceries (3.50 METs), Do yardwork, such as raking leaves, weeding,or pushing a power mower (4.50 METs), Climb a flight of stairs or walk up a hill (5.50 METs) PAT Pain Score: Pain Score: 3 Postop Pain Management Plan (Pain consult ordered?): Pain consult not indicated at this time ? EKG: Done today: Encounter Date: 01/14/23 ECG 12 lead Result Value Heart Rate 62 QRSD Interval 114 QT Interval 416 QTC Interval 423 P Ashford 32 QRS Ashford -43 T Wave Ashford 53 ND Interval 144 Impression SINUS RHYTHM VENT PREEXCITATION, LEFT ACCESSORY PATHWAY No previous ECG available for comparison ECHO and EF:None on file No components found for: LVEF , LVEFMODE Electronically signed by: RODRIGO VILLEGAS PA-C Date: 01/14/2023 at 1:[address] [facility] 01-20-2023 History and physical note H&P reviewed. The patient was examined and there are no changes to the H&P. Source Note - Rodrigo Villegas PA-C - 01/14/2023 12:30 PM EDT Comprehensive PreSurgical History and Physical ? Name: Guilherme Saab : 1955 (Age-67 y.o.) Date of Service: Pt seen/examined on 01/14/2023 Procedure Information Date/Time: 01/20/23 0800 Procedures: RIGHT OPEN ANKLE FUSION, SUBTALAR JOINT FUSION (Right: Ankle) - 3 hours ARTHRODESIS FOOT SUBTALAR (Right: Foot) Location: [place] [id number] / [facility] Operating Room Surgeons: Devon Maki MD Chief Complaint: RIGHT ANKLE /FOOT PAIN AND IT MAKE GRINDING NOISE GOING UP AND DOWN THE STEPS ASSESSMENT/PLAN: Patient is considered intermediate risk for this intermediate risk procedure/surgery noted above with no reducible risk factors. Based on the above evaluation, the benefits of the planned procedure likely exceed the risks. The patient is medically optimized to proceed with the planned procedure without any further cardiopulmonary testing. 1) RIGHT ANKLE PAIN DUE TO OA OF RIGHT ANKLE Managed per surgery 2) DM ; ON METFORMIN 3) HTN ; ON LISINOPRIL 4) HYPERLIPIDEMIA ; ON LIPITOR Visit Type: Pre-Admission Testing Visit Labs Ordered: NO - COMPLETE PRIOR TO PAT VISIT DONE ON 11/19/22 Sleep Referral Ordered: NO - NEGATIVE SCREEN PER SLEEP REFERRAL PROTOCOL Total time spent (which include face to face and non face to face encounters) : 40 minutes Toxic drug monitoring/narrow therapeutic index drug monitoring : # Drug name : LISINOPRIL # Route administered : ORALLY # Method of monitoring : LAB AND EKG PAT Protocol referenced includes: 1. Anesthesia Lab Protocol Orders 2. Perioperative Cardiovascular Risk Assessment 3. Anesthesia Assessment 4. Pain Assessment and Acute Pain Service Consult (if appropriate) 5. Medical Clearance/Consult from Internal Medicine (IMS) 6. Shower/Wash Order (for designated surgeries) 7. GRACIELA Screen and Sleep Clinic Referral (if appropriate) History Of Present Illness: 67 y.o. male who presents with chief complaint mentioned above. Patient came to PAT along with his Per surgeon's note dated 08/27/22 Guilherme is a 67 y.o. male here today for evaluation of his right foot Guilherme states the problem has been present for 1 year. 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 Patient noted swelling, and stiffness in his right ankle. He reports having a grinding sensation going up and down steps. He reports there is a grinding sensation in his ankle while doing the steps. He has neuropathy and does not have any pain associated with the swelling or the symptoms in the ankle. He recalls having broken his ankle when he was a child and was in a cast for a period of time. Guilherme states the problem started gradually with no injuries occurring Guilherme has tried or has been treated with the following: walking aids (crutches, cane, a walker,knee scooter,wheelchair, etc) and OTC shoe inserts. Pt has seen the surgeon and elected for above procedure. Denies Hx of Asthma/COPD, GRACIELA, CAD, CHF, a fib, [place], TIA/CVA, DVT/PE Hx problems with anesthesia? - Denies Dental? - some missing teeth on the bottom nothing loose or broken no partials or dentures crowns Snore at night? - Past Medical History: Past Medical History: No date: Diabetes mellitus (HCC) No date: Hyperlipidemia No date: Hypertension No date: Primary localized osteoarthrosis of ankle and foot Comment: RIGHT ANKLE ; SCHEDULED FOR THE SURGERY ON 01/20/23 AT [facility] Past Surgical History: Past Surgical History: No date: TONSILLECTOMY Medications Prior to Admission: Current Outpatient Medications: atorvastatin (Lipitor) 20 MG tablet, TAKE 1 TABLET BY MOUTH ONCE DAILY AT BEDTIME FOR CHOLESTEROL, Disp: , Rfl: ELDERBERRY PO, Take by mouth., Disp: , Rfl: lisinopril 20 MG tablet, Take 20 mg by mouth daily., Disp: , Rfl: metFORMIN (Glucophage) 500 MG tablet, Take 500 mg by mouth., Disp: , Rfl: naproxen (Naprosyn) 250 MG tablet, Take by mouth., Disp: , Rfl: PAPAYA PO, Take by mouth., Disp: , Rfl: CHRONIC NARCOTIC USE: No Allergies: Onion If patient has opioid allergy, is it okay to take Acetaminophen: Yes Social History: TOBACCO: reports that he has never smoked. He has never used smokeless tobacco. ETOH: reports current alcohol use. Social History Substance and Sexual Activity Drug Use Never Family History: No family history on file. REVIEW OF SYSTEMS: Review of Systems Constitutional: Negative for fever. Respiratory: Negative for shortness of breath. Cardiovascular: Negative for chest pain. Gastrointestinal: Negative for nausea. Skin: Negative for pallor and rash. Pertinent positives as noted in the HPI. Physical Exam: Physical Exam Vitals and nursing note reviewed. Constitutional: Appearance: Normal appearance. HENT: Head: Normocephalic and atraumatic. Mouth/Throat: Mouth: Mucous membranes are moist. Cardiovascular: Rate and Rhythm: Normal rate and regular rhythm. Pulmonary: Effort: Pulmonary effort is normal. Breath sounds: Normal breath sounds. Musculoskeletal: General: Normal range of motion. Cervical back: Normal range of motion and neck supple. Skin: General: Skin is warm. Neurological: General: No focal deficit present. Mental Status: He is alert and oriented to person, place, and time. Psychiatric: Mood and Affect: Mood normal. Behavior: Behavior normal. Vitals: Vitals Value Taken Time BP 177/92 01/14/23 1258 Temp 37.1 C (98.7 F) 01/14/23 1247 Pulse 69 01/14/23 1258 Resp 16 01/14/23 1231 SpO2 97 % 01/14/23 1258 BP (!) 177/92 Pulse 69 Temp 37.1 C (98.7 F) (Temporal) Resp 16 Ht 1.829 m (6') Wt 112 kg (246 lb) SpO2 97% BMI 33.36 kg/m Labs: No results found for: WBC , HGB , HCT , MCV , PLT No results found for: NA , K , CL , CO2 , BUN , CREATININE , GLUCOSE , CALCIUM , PROT , BILIRUBINFL , ALKPHOS , AST , ALT , EGFR , GLOB Nima's Simple Cardiac Risk Index: Interpretation: 0 Points Class I 0.5% 1 Point Class II 1.3% 2 Points Class III 3.6% 3+ Points Class IV 9.1% METS Walk indoors, such as around the house (1.75 METs), Do light work around the house, such as dusting or washing dishes (2.70 METs), Take care of self, that is eating, dressing, bathing, using the toilet (2.75 METs), Do moderate work around the house such as vacuuming, sweeping floors, or carrying in groceries (3.50 METs), Do yardwork, such as raking leaves, weeding,or pushing a power mower (4.50 METs), Climb a flight of stairs or walk up a hill (5.50 METs) PAT Pain Score: Pain Score: 3 Postop Pain Management Plan (Pain consult ordered?): Pain consult not indicated at this time ? EKG: Done today: Encounter Date: 01/14/23 ECG 12 lead Result Value Heart Rate 62 QRSD Interval 114 QT Interval 416 QTC Interval 423 P Ashford 32 QRS Ashford -43 T Wave Ashford 53 ND Interval 144 Impression SINUS RHYTHM VENT PREEXCITATION, LEFT ACCESSORY PATHWAY No previous ECG available for comparison ECHO and EF:None on file No components found for: LVEF , LVEFMODE Electronically signed by: RODRIGO VILLEGAS PA-C Date: 01/14/2023 at 1:16 PM documented in this encounter [facility] 01-14-2023 Note Patient: Guilherme Saab Procedure Information Date/Time: 01/20/23 0800 Procedures: RIGHT OPEN ANKLE FUSION, SUBTALAR JOINT FUSION (Right: Ankle) - 3 hours ARTHRODESIS FOOT SUBTALAR (Right: Foot) Location: [address] Operating Room Surgeons: Devon Maki MD Relevant Problems No relevant active problems Past Medical History: Past Medical History: No date: Diabetes mellitus (HCC) No date: Hyperlipidemia No date: Hypertension No date: Primary localized osteoarthrosis of ankle and foot Comment: RIGHT ANKLE ; SCHEDULED FOR THE SURGERY ON 01/20/23 AT [facility] Past Surgical History: Past Surgical History: No date: TONSILLECTOMY Social History: TOBACCO: reports that he has never smoked. He has never used smokeless tobacco. ETOH: reports current alcohol use. Social History Substance and Sexual Activity Drug Use Never Family History: No family history on file. Screening: unknown Clinical information reviewed: Tobacco Allergies Meds Med Hx Surg Hx Fam Hx Soc Hx Physical Exam Airway Mallampati: III TM distance: >3 FB Neck ROM: full Mouth Open: normal Cardiovascular Dental Comments: Some missing teeth bottom, denies loose teeth Pulmonary Abdominal Other findings: Denies GERD Anesthesia Plan patient is NPO appropriate Any family history or previous problems with anesthesia no ASA 2 general and regional Any family history or previous problems with anesthesia no (Popliteal/Saphenous) The patient is not a current smoker. Anesthetic plan and risks discussed with patient. ERAS Type Tylenol, Pepcid GRACIELA Screening STOP-Bang Total Score: 4 Labs: No results found for: WBC , HGB , HCT , MCV , PLT No results found for: NA , K , CL , CO2 , BUN , CREATININE , GLUCOSE , CALCIUM , PROT , BILIRUBINFL , ALKPHOS , AST , ALT , EGFR , GLOB Pain Score: 3 No echocardiogram results found for the past 14 days 01/14/23 ECG 12-LEAD Impression SINUS RHYTHM Probable ventricular pre-excitation with pseudo-infarct pattern No previous ECG available for comparison Electronically Signed On 01-15-2023 12:13:29 EDT by [facility] 01-14-2023 Note Comprehensive PreSur gical History and Physical ? Name: Guilherme Saab : 1955 (Age-67 y.o.) Date of Service: Pt seen/examined on 01/14/2023 Procedure Information Date/Time: 01/20/23 0800 Procedures: RIGHT OPEN ANKLE FUSION, SUBTALAR JOINT FUSION (Right: Ankle) - 3 hours ARTHRODESIS FOOT SUBTALAR (Right: Foot) Location: [address] Operating Room Surgeons: Devon Maki MD Chief Complaint: RIGHT ANKLE /FOOT PAIN AND IT MAKE GRINDING NOISE GOING UP AND DOWN THE STEPS ASSESSMENT/PLAN: Patient is considered intermediate risk for this intermediate risk procedure/surgery noted above with no reducible risk factors. Based on the above evaluation, the benefits of the planned procedure likely exceed the risks. The patient is medically optimized to proceed with the planned procedure without any further cardiopulmonary testing. 1) RIGHT ANKLE PAIN DUE TO OA OF RIGHT ANKLE Managed per surgery 2) DM ; ON METFORMIN 3) HTN ; ON LISINOPRIL 4) HYPERLIPIDEMIA ; ON LIPITOR Visit Type: Pre-Admission Testing Visit Labs Ordered: NO - COMPLETE PRIOR TO PAT VISIT DONE ON 11/19/22 Sleep Referral Ordered: NO - NEGATIVE SCREEN PER SLEEP REFERRAL PROTOCOL Total time spent (which include face to face and non face to face encounters) : 40 minutes Toxic drug monitoring/narrow therapeutic index drug monitoring : # Drug name : LISINOPRIL # Route administered : ORALLY # Method of monitoring : LAB AND EKG PAT Protocol referenced includes: 1. Anesthesia Lab Protocol Orders 2. Perioperative Cardiovascular Risk Assessment 3. Anesthesia Assessment 4. Pain Assessment and Acute Pain Service Consult (if appropriate) 5. Medical Clearance/Consult from Internal Medicine (IMS) 6. Shower/Wash Order (for designated surgeries) 7. GRACIELA Screen and Sleep Clinic Referral (if appropriate) History Of Present Illness: 67 y.o. male who presents with chief complaint mentioned above. Patient came to PAT along with his Per surgeon's note dated 08/27/22 Guilherme is a 67 y.o. male here today for evaluation of his right foot Guilherme states the problem has been present for 1 year. 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 Patient noted swelling, and stiffness in his right ankle. He reports having a grinding sensation going up and down steps. He reports there is a grinding sensation in his ankle while doing the steps. He has neuropathy and does not have any pain associated with the swelling or the symptoms in the ankle. He recalls having broken his ankle when he was a child and was in a cast for a period of time. Guilherme states the problem started gradually with no injuries occurring Guilherme has tried or has been treated with the following: walking aids (crutches, cane, a walker,knee scooter,wheelchair, etc) and OTC shoe inserts. Pt has seen the surgeon and elected for above procedure. Denies Hx of Asthma/COPD, GRACIELA, CAD, CHF, a fib, [place], TIA/CVA, DVT/PE Hx problems with anesthesia? - Denies Dental? - some missing teeth on the bottom nothing loose or broken no partials or dentures crowns Snore at night? - Past Medical History: Past Medical History: No date: Diabetes mellitus (HCC) No date: Hyperlipidemia No date: Hypertension No date: Primary localized osteoarthrosis of ankle and foot Comment: RIGHT ANKLE ; SCHEDULED FOR THE SURGERY ON 01/20/23 AT [facility] Past Surgical History: Past Surgical History: No date: TONSILLECTOMY Medications Prior to Admission: Current Outpatient Medications: atorvastatin (Lipitor) 20 MG tablet, TAKE 1 TABLET BY MOUTH ONCE DAILY AT BEDTIME FOR CHOLESTEROL, Disp: , Rfl: ELDERBERRY PO, Take by mouth., Disp: , Rfl: lisinopril 20 MG tablet, Take 20 mg by mouth daily., Disp: , Rfl: metFORMIN (Glucophage) 500 MG tablet, Take 500 mg by mouth., Disp: , Rfl: naproxen (Naprosyn) 250 MG tablet, Take by mouth., Disp: , Rfl: PAPAYA PO, Take by mouth., Disp: , Rfl: CHRONIC NARCOTIC USE: No Allergies: Onion If patient has opioid allergy, is it okay to take Acetaminophen: Yes Social History: TOBACCO: reports that he has never smoked. He has never used smokeless tobacco. ETOH: reports current alcohol use. Social History Substance and Sexual Activity Drug Use Never Family History: No family history on file. REVIEW OF SYSTEMS: Review of Systems Constitutional: Negative for fever. Respiratory: Negative for shortness of breath. Cardiovascular: Negative for chest pain. Gastrointestinal: Negative for nausea. Skin: Negative for pallor and rash. Pertinent positives as noted in the HPI. Physical Exam: Physical Exam Vitals and nursing note reviewed. Constitutional: Appearance: Normal appearance. HENT: Head: Normocephalic and atraumatic. Mouth/Throat: Mouth: Mucous membranes are moist. Cardiovascular: Rate and Rhythm: Normal rate and regular rhythm. Pulmo (more content not included)... [facility] 01-14-2023 Note Comprehensive PreSur gical History and Physical ? Name: Guilherme Saab : 1955 (Age-67 y.o.) Date of Service: Pt seen/examined on 01/14/2023 Procedure Information Date/Time: 01/20/23 0800 Procedures: RIGHT OPEN ANKLE FUSION, SUBTALAR JOINT FUSION (Right: Ankle) - 3 hours ARTHRODESIS FOOT SUBTALAR (Right: Foot) Location: [address] Operating Room Surgeons: Devon Maki MD Chief Complaint: RIGHT ANKLE /FOOT PAIN AND IT MAKE GRINDING NOISE GOING UP AND DOWN THE STEPS ASSESSMENT/PLAN: Patient is considered intermediate risk for this intermediate risk procedure/surgery noted above with no reducible risk factors. Based on the above evaluation, the benefits of the planned procedure likely exceed the risks. The patient is medically optimized to proceed with the planned procedure without any further cardiopulmonary testing. 1) RIGHT ANKLE PAIN DUE TO OA OF RIGHT ANKLE Managed per surgery 2) DM ; ON METFORMIN 3) HTN ; ON LISINOPRIL 4) HYPERLIPIDEMIA ; ON LIPITOR Visit Type: Pre-Admission Testing Visit Labs Ordered: NO - COMPLETE PRIOR TO PAT VISIT DONE ON 11/19/22 Sleep Referral Ordered: NO - NEGATIVE SCREEN PER SLEEP REFERRAL PROTOCOL Total time spent (which include face to face and non face to face encounters) : 40 minutes Toxic drug monitoring/narrow therapeutic index drug monitoring : # Drug name : LISINOPRIL # Route administered : ORALLY # Method of monitoring : LAB AND EKG PAT Protocol referenced includes: 1. Anesthesia Lab Protocol Orders 2. Perioperative Cardiovascular Risk Assessment 3. Anesthesia Assessment 4. Pain Assessment and Acute Pain Service Consult (if appropriate) 5. Medical Clearance/Consult from Internal Medicine (IMS) 6. Shower/Wash Order (for designated surgeries) 7. GRACIELA Screen and Sleep Clinic Referral (if appropriate) History Of Present Illness: 67 y.o. male who presents with chief complaint mentioned above. Patient [facility] along with his Per surgeon's note dated 08/27/22 Guilherme is a 67 y.o. male here today for evaluation of his right foot uGilherme states the problem has been present for 1 year. 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 Patient noted swelling, and stiffness in his right ankle. He reports having a grinding sensation going up and down steps. He reports there is a grinding sensation in his ankle while doing the steps. He has neuropathy and does not have any pain associated with the swelling or the symptoms in the ankle. He recalls having broken his ankle when he was a child and was in a cast for a period of time. Guilherme states the problem started gradually with no injuries occurring Guilherme has tried or has been treated with the following: walking aids (crutches, cane, a walker,knee scooter,wheelchair, etc) and OTC shoe inserts. Pt has seen the surgeon and elected for above procedure. Denies Hx of Asthma/COPD, GRACIELA, CAD, CHF, a fib, [place], TIA/CVA, DVT/PE Hx problems with anesthesia? - Denies Dental? - some missing teeth on the bottom nothing loose or broken no partials or dentures crowns Snore at night? - Past Medical History: Past Medical History: No date: Diabetes mellitus (HCC) No date: Hyperlipidemia No date: Hypertension No date: Primary localized osteoarthrosis of ankle and foot Comment: RIGHT ANKLE ; SCHEDULED FOR THE SURGERY ON 01/20/23 AT [facility] Past Surgical History: Past Surgical History: No date: TONSILLECTOMY Medications Prior to Admission: Current Outpatient Medications: atorvastatin (Lipitor) 20 MG tablet, TAKE 1 TABLET BY MOUTH ONCE DAILY AT BEDTIME FOR CHOLESTEROL, Disp: , Rfl: ELDERBERRY PO, Take by mouth., Disp: , Rfl: lisinopril 20 MG tablet, Take 20 mg by mouth daily., Disp: , Rfl: metFORMIN (Glucophage) 500 MG tablet, Take 500 mg by mouth., Disp: , Rfl: naproxen (Naprosyn) 250 MG tablet, Take by mouth., Disp: , Rfl: PAPAYA PO, Take by mouth., Disp: , Rfl: CHRONIC NARCOTIC USE: No Allergies: Onion If patient has opioid allergy, is it okay to take Acetaminophen: Yes Social History: TOBACCO: reports that he has never smoked. He has never used smokeless tobacco. ETOH: reports current alcohol use. Social History Substance and Sexual Activity Drug Use Never Family History: No family history on file. REVIEW OF SYSTEMS: Review of Systems Constitutional: Negative for fever. Respiratory: Negative for shortness of breath. Cardiovascular: Negative for chest pain. Gastrointestinal: Negative for nausea. Skin: Negative for pallor and rash. Pertinent positives as noted in the HPI. Physical Exam: Physical Exam Vitals and nursing note reviewed. Constitutional: Appearance: Normal appearance. HENT: Head: Normocephalic and atraumatic. Mouth/Throat: Mouth: Mucous membranes are moist. Cardiovascular: Rate and Rhythm: Normal rate and regular rhythm. Pulmo (more content not included)... [facility] 01-06-2023 Note SURGERY SCHEDULING S HEET Procedure: right Open ankle fusion (21227) and Subtalar joint fusion (55623) CPT codes: see above Diagnosis: No primary diagnosis found. Location for Surgery: [facility] Schedule for: 3 hours Admission Type: Outpatient Medical Clearance: Yes with PCP/IMS Antibiotic: Ancef 2g IV Anesthesia: Popliteal block (single shot) + General Position and Table type: Lateral with Siegel Bag on Regular Table Radiology: Big C-arm Implants: Synthes Hindfoot Fusion Nail Equipment: High speed myles, Masala Foot Distractor, and Lamina Spreaders [facility] 11-26-2022 History of Presen t illness Narrative Images from the original note were not included. [facility] [address] [place] [id number] Dept: [phone] Dept Guilherme Saab 1955 [id number] 11/26/2022 HISTORY OF PRESENT ILLNESS: Guilherme returns for re-evaluation of his right ankle Guilherme reports that his pain is worse than at the last visit Guilherme reports that his swelling is worse than at the last visit Guilherme denies calf pain and shortness of breath Guilherme has been weight bearing as tolerated on the right lower extremity in a shoe. In general Guilherme feels that he is doing worse than at his last visit Other complaints or issues: None Review of Systems Surgical Risk Factors: Allergies to Metals or Latex: NO Have you been treated for a blood clot: NO Have you had a history of bleeding disorder: NO Have you had a history of Anesthetic problems: NO Do you have tendency to bruise easily: Yes Do you experience prolonged or excessive bleeding from cuts or after surgery: NO General/Constitutional: General: no Cancer: NO Acute/Chronic Infections: NO HEENT/Neck: Problems with theThroat: NO Problems with the Eyes: NO Problems with the Ears: NO Problems with the Nose and Sinuses: NO Endocrine: Problems with Diabetes: NO Problems with Thyroid Disorder: NO Thorax: Problems with the Heart: NO Problems with the Lung: no Cardiovascular: Problems with Circulation: NO Problems with High Blood pressure: NO Gastrointestinal: Problems with Ulcers: NO Problems with the Liver: no Problems with Bowel Habits: NO Genitourinary: Problems with the Genitals: NO Urinary problems: NO Kidney disease or stones: NO Skin: Any general problems: NO Neurologic: Dizziness, blurred vision, headaches, problems with balance : NO Seizures or Stroke: NO Psychiatric: Emotional or Psychological disorders: NO Depression or Anxiety: no PAST MEDICAL HISTORY: No past medical history on file. Allergies Allergen Reactions Onion intolarance PHYSICAL EXAM: BP (!) 157/78 Pulse 76 Ht 6' (1.829 m) Wt 250 lb (113 kg) BMI 33.91 kg/m This is an age appropriate appearing male who is alert and oriented x 3. The patient appears well nourished. Psychiatric: The patient is able to verbalize normally and seems to have a good understanding of his situation. right lower extremity examination Lymphatic System: Diffuse ankle swelling Vascular: Dorsalis pedis pulse: 2+ Posterior tibial pulse: 2+ Capillary refill is less than 3 seconds Skin/nails: Normal appearance, warm and dry Hair growth present on foot and toes Neurologic: Sensation intact to light touch throughout the foot and the ankle Muscle: Muscle strength testing: Anterior tibialis: 5/5 Posterior tibialis: 5/5 Peroneus brevis: 5/5 Peroneus longus: 5/5 Gastrocsoleus: 5/5 Mildly tender to palpation over the anterior aspect of the joint and tarsal sinus. Decreased range of motion of the ankle and hindfoot with crepitus. Gait and Station: Guilherme is able to ambulate with a mild limp Guilherme is able to stand unassisted and maintains balance RADIOGRAPHIC INTERPRETATION: 3 weight bearing views of the right ankle were obtained and the following is my interpretation of the findings present of the X-rays: Today's x-rays were compared to previous x-rays of the right ankle. No changes consistent with Charcot arthropathy are seen. Severe arthrosis of both the ankle and subtalar joints is noted with some collapse of the talar body. The collapse has not changed since the last x-rays. REVIEW OF RELATED PREVIOUS DOCUMENTATION: No documents related to the current problem(s) were reviewed or no documents were available for review. LABORATORY RESULT INTERPRETATION: No labs were reviewed/No labs available for review DIAGNOSIS: Diagnosis Plan 1. Arthritis of ankle MEDICAL DECISION MAKING: I had a discussion with Guilherme to make sure he has a good understanding of the diagnoses/issues that I think are present today and understands the plan moving forward. I explained to Guilherme and his family that at this point I do not see signs of Charcot arthropathy and the changes in his ankle likely represents severe chronic arthritis. He is feeling more grinding and slightly more discomfort than at his previous visit. We decided to see him back in 3 months for repeat weightbearing x-rays of the right ankle. If his symptoms are worsening and he has no signs of Charcot arthropathy his issues likely represents severe arthrosis and we briefly discussed ankle fusion. He would not be a good candidate for ankle replacement secondary to his neuropathy. At this point if he were to decide to have a fusion I would likely recommend a hindfoot fusion nail fusing both the ankle and subtalar joints. Xray needed at next visit: Right ankle 3 weight bearing views Follow up in about 3 months (around 02/25/2023) for Pre-visit Imaging. Electronically signed by Devon Maki MD [facility] Department of Orthopedic surgery 11/26/2022 12:51 PM Voice recognition was used for portions of this note and although it was reviewed prior to signing some incorrect words or phrases could be present. documented in this encounter [facility] 11-23-2022 Miscellaneous Notes Spoke with pt and information listed below given. Pt verbalizes understanding. Madison Shook LPN Phoned patient and message left for patient to return call to review results and recommendations. Message left for patient to call office back for update. Mary Caro LPN A1c improved to 7.0% from 7.2% - continue current medications, low carbohydrate diet and exercise. Urine albumin/creatinine ratio up some- continue with diet, exercise, low salt diet and stay well hydrated. The rest of his blood work is in acceptable ranges. Continue all over medications. Aracelis Antoine APRN.CNP documented in this encounter [facility] 11-19-2022 Note HNO ID: [id number] Author: Mary Diez MD Service: ? Author Type: Physician Type: Progress Notes Filed: 11/19/2022 11:01 AM Note Text: Chief Complaint Patient presents with: Physical HPI Guilherme Saab is a 67 year old male who presents here today for Above Complaints. No questions or concerns. DIABETES MELLITUS: Mr. Saab was last seen 6 months ago. Since our last visit he denies excessive thirst or increased frequency of urination, numbness, tingling or pain in extremities, new or unusual visual symptoms, and low sugar/hypoglycemic reactions. Follows a diabetic diet most of the time. He is compliant with medication(s) and is tolerating med(s) without any side effects. He reports checking his glucose on a infrequent to not at all basis. Patient's last HgA1C was Hemoglobin A1C (%) Date Value 04/23/2022 7.2 10/01/2021 6.8 04/08/2021 6.8 04/01/2020 7.4 ) Last Ophthalmology exam was more than [address] Pimentel. Last Podiatry exam was more than 12 months ago HTN: Mr. Saab indicates that he is feeling well and denies any symptoms referable to elevated blood pressure. Specifically denies headache, chest pain, palpitations, dyspnea, and peripheral edema. Patient denies any side effects of his medication(s) and is compliant with their regimen. He does not check BP's generally. Guilherme likes to exercise by bicycline. He watches his diet for sodium, low fat and low cholesterol most of the time. Last 3 Encounter BP Readings: Date: BP: 11/19/2022 142/82 07/29/2022 134/86 04/30/2022 138/78 PHQ-2 / Depression screen He in the past two weeks denies having felt down, depressed, hopeless or with little interest or pleasure in doing things. Not sure if he has living will or DPOA at home. FULL CODE. Refusing vaccinations and EKG today. Past medical history, appointments, medications, allergies reviewed. Previous Medical History PAST MEDICAL HISTORY Diagnosis Date Diabetes mellitus type II (HCC) Obesity (BMI 30.0-34.9) Previous Surgical History PAST SURGICAL HISTORY Procedure Laterality Date TONSILLECTOMY HX childhood VASECTOMY UNI/BI SPX W/POSTOP SEMEN EXAMS 1977 Family History FAMILY HISTORY Problem Relation Age of Onset No Known Problems Daughter No Known Problems Son Patient Allergies ALLERGIES No Known Allergies Current Medications Current Outpatient Medications on File Prior to Visit Medication Sig lisinopril (ZESTRIL) 20 mg tablet Take 1 tablet by mouth once daily. metFORMIN (GLUCOPHAGE) 500 mg tablet Take 1 tablet by mouth twice daily with meals. . atorvastatin (LIPITOR) 20 mg tablet Take 1 tablet by mouth daily at bedtime. For cholesterol. aspirin, enteric coated (ASPIRIN, ENTERIC COATED) 81 mg EC tablet Take 81 mg by mouth once daily. Blood Pressure Cuff - Home Use BLOOD PRESSURE CUFF FOR HOME USE. DX: LABILE BLOOD PRESSURE blood sugar diagnostic (BLOOD GLUCOSE TEST) test strip Test blood sugar(s) 1-2 times daily. Dx: Type 2 DM - Uncontrolled E11.65 Insulin: No Lancets lancets Test blood sugar(s) 1-2 times daily. Dx: Type 2 DM - Uncontrolled E11.65 Insulin: No diclofenac (VOLTAREN) 1 % topical gel Apply 2 g to affected area four times daily. (Patient not taking: No sig reported) No current facility-administered medications on file prior to visit. Social History Social History Tobacco Use Smoking status: Former Smokeless tobacco: Never Tobacco comments: teenager, less than 1 year Vaping Use Vaping Use: Never used Substance Use Topics Alcohol use: Not Currently Drug use: Not Currently Review of Symptoms REVIEW OF SYSTEMS GENERAL: No weight loss, malaise or fevers HEENT: Negative for frequent or significant headaches, No changes in hearing or vision, no nose bleeds or other nasal problems NECK: Negative for lumps, goiter, pain and significant neck swelling RESPIRATORY: Negative for cough, hemoptysis, wheezing, COPD, dyspnea or shortness of breath CARDIOVASCULAR: Negative for chest pain, leg swelling, hypertension, CHF or palpitations GI: No nausea, vomiting, or diarrhea : No history of dysuria, frequency or incontinence, No difficulty urinating, nocturia > 1 time per night or hematuria MUSCULOSKELETAL: Negative for joint pain or swelling, back pain or muscle pain SKIN: Negative for lesions, rash, and itching PSYCH: Negative for sleep disturbance, mood disorder and recent psychosocial stressors HEMATOLOGY/LYMPHOLOGY: Negative for prolonged bleeding, bruising easily or swollen nodes ENDOCRINE: Negative for cold or heat intolerance, polyuria, polydipsia and goiter NEURO: No history of headaches, syncope, paralysis, seizures or tremors EXAM: BP 142/82 Pulse (!) 59 Resp 16 Wt 110 kg (242 lb 6.4 oz) SpO2 98% BMI 32.20 kg/m? General Appearance: Well appearing, alert, in no acute distress, well-hydrated, well nourished.. Skin: Skin color, texture, turgor norm (more content not included)... [facility] 11-19-2022 History of Presen t illness Narrative Chief Complaint Patient presents with: Physical HPI Guilherme Saab is a 67 year old male who presents here today for Above Complaints. No questions or concerns. DIABETES MELLITUS: Mr. Saab was last seen 6 months ago. Since our last visit he denies excessive thirst or increased frequency of urination, numbness, tingling or pain in extremities, new or unusual visual symptoms, and low sugar/hypoglycemic reactions. Follows a diabetic diet most of the time. He is compliant with medication(s) and is tolerating med(s) without any side effects. He reports checking his glucose on a infrequent to not at all basis. Patient's last HgA1C was Hemoglobin A1C (%) Date Value 04/23/2022 7.2 10/01/2021 6.8 04/08/2021 6.8 04/01/2020 7.4 ) Last Ophthalmology exam was more than [address] Pimentel. Last Podiatry exam was more than 12 months ago HTN: Mr. Saab indicates that he is feeling well and denies any symptoms referable to elevated blood pressure. Specifically denies headache, chest pain, palpitations, dyspnea, and peripheral edema. Patient denies any side effects of his medication(s) and is compliant with their regimen. He does not check BP's generally. Guilherme likes to exercise by bicycline. He watches his diet for sodium, low fat and low cholesterol most of the time. Last 3 Encounter BP Readings: Date: BP: 11/19/2022 142/82 07/29/2022 134/86 04/30/2022 138/78 PHQ-2 / Depression screen He in the past two weeks denies having felt down, depressed, hopeless or with little interest or pleasure in doing things. Not sure if he has living will or DPOA at home. FULL CODE. Refusing vaccinations and EKG today. Past medical history, appointments, medications, allergies reviewed. Previous Medical History PAST MEDICAL HISTORY Diagnosis Date Diabetes mellitus type II (HCC) Obesity (BMI 30.0-34.9) Previous Surgical History PAST SURGICAL HISTORY Procedure Laterality Date TONSILLECTOMY HX childhood VASECTOMY UNI/BI SPX W/POSTOP SEMEN EXAMS 1977 Family History FAMILY HISTORY Problem Relation Age of Onset No Known Problems Daughter No Known Problems Son Patient Allergies ALLERGIES No Known Allergies Current Medications Current Outpatient Medications on File Prior to Visit Medication Sig lisinopril (ZESTRIL) 20 mg tablet Take 1 tablet by mouth once daily. metFORMIN (GLUCOPHAGE) 500 mg tablet Take 1 tablet by mouth twice daily with meals. . atorvastatin (LIPITOR) 20 mg tablet Take 1 tablet by mouth daily at bedtime. For cholesterol. aspirin, enteric coated (ASPIRIN, ENTERIC COATED) 81 mg EC tablet Take 81 mg by mouth once daily. Blood Pressure Cuff - Home Use BLOOD PRESSURE CUFF FOR HOME USE. DX: LABILE BLOOD PRESSURE blood sugar diagnostic (BLOOD GLUCOSE TEST) test strip Test blood sugar(s) 1-2 times daily. Dx: Type 2 DM - Uncontrolled E11.65 Insulin: No Lancets lancets Test blood sugar(s) 1-2 times daily. Dx: Type 2 DM - Uncontrolled E11.65 Insulin: No diclofenac (VOLTAREN) 1 % topical gel Apply 2 g to affected area four times daily. (Patient not taking: No sig reported) No current facility-administered medications on file prior to visit. Social History Social History Tobacco Use Smoking status: Former Smokeless tobacco: Never Tobacco comments: teenager, less than 1 year Vaping Use Vaping Use: Never used Substance Use Topics Alcohol use: Not Currently Drug use: Not Currently Review of Symptoms REVIEW OF SYSTEMS GENERAL: No weight loss, malaise or fevers HEENT: Negative for frequent or significant headaches, No changes in hearing or vision, no nose bleeds or other nasal problems NECK: Negative for lumps, goiter, pain and significant neck swelling RESPIRATORY: Negative for cough, hemoptysis, wheezing, COPD, dyspnea or shortness of breath CARDIOVASCULAR: Negative for chest pain, leg swelling, hypertension, CHF or palpitations GI: No nausea, vomiting, or diarrhea : No history of dysuria, frequency or incontinence, No difficulty urinating, nocturia > 1 time per night or hematuria MUSCULOSKELETAL: Negative for joint pain or swelling, back pain or muscle pain SKIN: Negative for lesions, rash, and itching PSYCH: Negative for sleep disturbance, mood disorder and recent psychosocial stressors HEMATOLOGY/LYMPHOLOGY: Negative for prolonged bleeding, bruising easily or swollen nodes ENDOCRINE: Negative for cold or heat intolerance, polyuria, polydipsia and goiter NEURO: No history of headaches, syncope, paralysis, seizures or tremors EXAM: BP 142/82 Pulse (!) 59 Resp 16 Wt 110 kg (242 lb 6.4 oz) SpO2 98% BMI 32.20 kg/m General Appearance: Well appearing, alert, in no acute distress, well-hydrated, well nourished.. Skin: Skin color, texture, turgor normal, no suspicious rashes or lesions. Head: Normocephalic, no masses, lesions, tenderness or abnormalities. Eyes: Anicteric sclera. Pupils are equally round and reactive to light. Extraocular movements are intact. . Ears: External ears normal, canals clear. Oropharynx: Lips, mucosa, and tongue normal, teeth and gums normal, oropharynx normal. Neck: Supple, no adenopathy; thyroid symmetric, normal size, no bruits. Lungs: Lungs clear to auscultation. No wheezing, rhonchi, rales.. Heart: RRR without murmur, gallop, or rubs. No ectopy. Abdomen: Normal abdominal exam, Abdomen soft, non-tender. Bowel sounds normal. No masses, organomegaly. Extremities: No edema, skin discoloration, clubbing or cyanosis. Good capillary refill. Asymptomatic varicose veins noted on LE bilaterally. Right ankle chronically swollen without pitting. Peripheral Pulses: Normal. Lymph Nodes: No cervical lymphadenopathy and No supraclavicular lymphadenopathyFeet: Shoes and socks removed, normal distal pulses, not sensitive to monofilament bilaterally, calluses noted bilaterally, and nails notable for Crumbly, Deformed, Hypertrophic, or Yellowish Health Maintenance List ABDOMINAL AORTIC ANEURYSM SCREENING Never done PNEUMOCOCCAL: 65+(1 - PCV) Never done COVID-19 VACCINE(3 - Moderna series) due on 09/25/2020 DILATED RETINAL EXAM due on 2022 ADVANCE DIRECTIVE DISCUSSION Never done DEPRESSION ASSESSMENT Never done DIABETIC FOOT EXAM due on 04/10/2022 URINE ALBUMIN:CREATININE RATIO due on 10/01/2022 HBA1C due on 10/21/2022 INFLUENZA(1) due on 11/26/2022 LDL CHOLESTEROL due on 04/23/2023 PROSTATE CANCER SCREENING DISCUSSION due on 09/26/2023 ANNUAL PCP TEAM CHRONIC DISEASE VISIT due on 11/20/2023 COLORECTAL CANCER SCREENING due on 05/07/2024 DTAP,TDAP,TD(2 - Td or Tdap) due on 09/24/2026 HEPATITIS C SCREENING Completed SHINGRIX VACCINE Completed Data reviewed Component Latest Ref Rng & Units 04/23/2022 07/29/2022 Protein, Total 6.3 - 8.0 g/dL 7.3 7.5 Albumin 3.9 - 4.9 g/dL 4.1 4.2 Calcium 8.5 - 10.2 mg/dL 9.5 9.8 Bilirubin, Total 0.2 - 1.3 mg/dL 1.2 1.1 Alkaline Phosphatase 38 - 113 U/L 90 109 AST 14 - 40 U/L 15 15 ALT 10 - 54 U/L 15 14 Glucose 74 - 99 mg/dL 133 (H) 161 (H) BUN 9 - 24 mg/dL 20 26 (H) Creatinine 0.73 - 1.22 mg/dL 1.14 1.03 Sodium 136 - 144 mmol/L 141 140 Potassium 3.7 - 5.1 mmol/L 4.8 4.7 Chloride 97 - 105 mmol/L 105 103 CO2 22 - 30 mmol/L 28 25 Anion Gap 9 - 18 mmol/L 8 (L) 12 eGFR >=60 mL/min/1.73m 71 80 Cholesterol, Total <200 mg/dL 111 Triglyceride <150 mg/dL 131 HDL Cholesterol >39 mg/dL 38 (L) Non HDL Cholesterol <130 mg/dL 73 Fasting Time hrs 13 VLDL Cholesterol <30 mg/dL 26 TC:HDL Ratio <5.10 2.92 LDL Cholesterol <100 mg/dL 47 LDL:HDL Ratio <2.54 1.24 Hemoglobin A1C 4.3 - 5.6 % 7.2 (H) Estimated Average Glucose mg/dL 160 NT Pro BNP <125 pg/mL 169 (H) ASSESSMENT/PLAN: 1. Annual physical exam - ICD9: V70.0, ICD10: Z00.00 (primary diagnosis) - Counseled on healthy diet and regular exercise - Discussed need for and benefit of weight loss. BMI 32.20 kg/(m^2) - Depression screening tool completed and reviewed with patient. Based on score and interview, patient is not at risk for depression and recommended no further intervention at this time. - Follow up for annual exam in one year - LIPID PANEL BASIC 2. Diabetes mellitus type II (HCC) - ICD9: 250.00, ICD10: E11.9 - Control undetermined, due for labs - Continue current medications - Blood glucose monitoring on a once daily schedule - Counseled on healthy diet and regular exercise - Discussed need for and benefit of weight loss. BMI 32.20 kg/(m^2) - Discussed diabetic education issues of diabetes complications and monitoring required, hypoglycemic/hyperglycemic symptoms, and medication-specific side effects and monitoring - Follow up in 6 months, sooner should any other issues arise. - ALBUMIN/CREAT RATIO RND UR - CBC + DIFF - COMP METABOLIC PANEL - HGB A1C - LIPID PANEL, NONFASTING 3. Diabetic polyneuropathy associated with type 2 diabetes mellitus (HCC) - ICD9: 250.60, 357.2, ICD10: E11.42 Refusing referral to podiatry for orthotics. Discussed checking feet on daily basis and to call with skin changes. Work on DM control with diet and exercise. 4. Obesity (BMI 30.0-34.9) - ICD9: 278.00, ICD10: E66.9 Weight decreasing - Behavioral intervention 5. Essential hypertension - ICD9: 401.9, ICD10: I10 - Controlled - Continue current medications - Recommend home blood pressure monitoring, to bring results to next visit - Encouraged sodium restriction, DASH or Mediterranean diet - Recommend regular aerobic exercise 6. Asymptomatic varicose veins - ICD9: 454.9, ICD10: I83.90 Refusing compression stockings. Discussed weight loss, diet and exercise. 7. Arthritis of right ankle - ICD9: 716.97, ICD10: M19.071 Patient following up with Dr. Maki for chronic right ankle pain and swelling 2/2 OA. Thinks he may be getting surgery. Will f/u for clearance if needed. Mary Diez MD documented in this encounter [facility] 11-17-2022 Miscellaneous Notes Could not see physical in last couple of year, so put in for physical with DM check. Pt scheduled for 11/19/[address] Diez. I will call in 30 days rx to give him time to schedule his routine follow up. Patient returned call and went over notes below from Dr Diez with understanding. Patient said he would have to call back to schedule, waiting on another Dr from [facility] to call him with appt either Nov 26 or Dec 03 does not want to schedule appt and not be able to get to it with PCP. Asking if he could still have the refills? Called and left a voicemail for the Patient to call back and ask for a nurse to receive the providers message. Jennie Landrum RN Patient is overdue for 6 month follow up on DM. Please call to schedule OV and will refill. Patient has been identified by name and date of : Yes, Provider Dr Diez Date 11/17/22 Time 0907. Patient phones for refill(s): Requested Prescriptions Pending Prescriptions Disp Refills lisinopril (ZESTRIL) 20 mg tablet 90 tablet 1 Sig: Take 1 tablet by mouth once daily. metFORMIN (GLUCOPHAGE) 500 mg tablet 180 tablet 1 Sig: Take 1 tablet by mouth twice daily with meals. . Date of last office visit in primary care: 07/29/22 Future visit: none Last 2 Encounter Wt Readings: Date: Wt: 07/29/2022 114.3 kg (252 lb) 04/30/2022 112.5 kg (248 lb) Previous labs/tests for medication: Diabetes: Hemoglobin A1C (%) Date Value 04/23/2022 7.2 10/01/2021 6.8 04/08/2021 6.8 04/01/2020 7.4 Blood Pressure: BUN (mg/dL) Date Value 07/29/2022 26 04/08/2021 22 Sodium (mmol/L) Date Value 07/29/2022 140 04/08/2021 140 Last 1 Encounter BP Readings: Date: BP: 07/29/2022 134/86 Please advise. Thank you. Jennie Landrum RN documented in this encounter [facility] 11-17-2022 Telephone encounter Note Rescheduled. [facility] 11-17-2022 Miscellaneous Notes Rescheduled. Name of caller: Guilherme Saab Contact phone number: [phone] Relationship to Patient: patient Provider: Dr. Maki Practice: Ortho Chief Complaint/Reason for Call: Pt returned call to reschedule 12/03 ulises. Both 11/26 and 12/10 dates are double booked at 1pm. Pt would prefer to move ulises to 11/26, pt confirmed 12/10 would work but did not want to reschedule past that date. Pt has open availability for either day. Pt wants to stay at [facility]. Please advise. Best time of day caller can be reached: any Patient advised that office/PCP has 24-48 business hours to return their call: No documented in this encounter [facility] 11-17-2022 Telephone encounter Note Name of caller: Guilherme Asterion Contact phone number: [phone] Relationship to Patient: patient Provider: Dr. Maki Practice: Ortho Chief Complaint/Reason for Call: Pt returned call to reschedule 12/03 ulises. Both 11/26 and 12/10 dates are double booked at 1pm. Pt would prefer to move ulises to 11/26, pt confirmed 12/10 would work but did not want to reschedule past that date. Pt has open availability for either day. Pt wants to stay at [facility]. Please advise. Best time of day caller can be reached: any Patient advised that office/PCP has 24-48 business hours to return their call: No [facility] 08-27-2022 History of Presen t illness Narrative Images from the original note were not included. [facility] [address] [place] [id number] Dept: [phone] Dept Guilherme Frame 1955 [id number] 08/27/2022 HISTORY OF PRESENT ILLNESS: Guilherme is a 67 y.o. male here today for evaluation of his right foot Guilherme states the problem has been present for 1 year. 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 Patient noted swelling, and stiffness in his right ankle. He reports having a grinding sensation going up and down steps. He reports there is a grinding sensation in his ankle while doing the steps. He has neuropathy and does not have any pain associated with the swelling or the symptoms in the ankle. He recalls having broken his ankle when he was a child and was in a cast for a period of time. Guilherme states the problem started gradually with no injuries occurring Guilherme has tried or has been treated with the following: walking aids (crutches, cane, a walker,knee scooter,wheelchair, etc) and OTC shoe inserts. Review of Systems Surgical Risk Factors: Allergies to Metals or Latex: NO Have you been treated for a blood clot: NO Have you had a history of bleeding disorder: NO Have you had a history of Anesthetic problems: NO Do you have tendency to bruise easily: Yes Do you experience prolonged or excessive bleeding from cuts or after surgery: NO General/Constitutional: General: no Cancer: NO Acute/Chronic Infections: NO HEENT/Neck: Problems with theThroat: NO Problems with the Eyes: NO Problems with the Ears: NO Problems with the Nose and Sinuses: NO Endocrine: Problems with Diabetes: NO Problems with Thyroid Disorder: NO Thorax: Problems with the Heart: NO Problems with the Lung: no Cardiovascular: Problems with Circulation: NO Problems with High Blood pressure: NO Gastrointestinal: Problems with Ulcers: NO Problems with the Liver: no Problems with Bowel Habits: NO Genitourinary: Problems with the Genitals: NO Urinary problems: NO Kidney disease or stones: NO Skin: Any general problems: NO Neurologic: Dizziness, blurred vision, headaches, problems with balance : NO Seizures or Stroke: NO Psychiatric: Emotional or Psychological disorders: NO Depression or Anxiety: no Patient is a type 2 diabetic, treated with metformin, Hemoglobin A1c taken on 04/23/2022 was 7.2% PAST MEDICAL HISTORY: No past medical history on file. Allergies Allergen Reactions Onion intolarance PHYSICAL EXAM: BP (!) 140/86 Ht 6' (1.829 m) Wt 250 lb (113 kg) BMI 33.91 kg/m This is an age appropriate appearing male who is alert and oriented x 3. The patient appears well nourished. Psychiatric: The patient is able to verbalize normally and seems to have a good understanding of his situation. right lower extremity examination Lymphatic System: Diffuse ankle swelling Vascular: Dorsalis pedis pulse: 2+ Posterior tibial pulse: 2+ Capillary refill is less than 3 seconds Skin/nails: Normal appearance, warm and dry Hair growth absent on foot and toes Neurologic: Sensation decreased to light touch throughout the foot and the ankle Muscle: Muscle strength testing: Anterior tibialis: 5/5 Posterior tibialis: 5/5 Peroneus brevis: 5/5 Peroneus longus: 5/5 Gastrocsoleus: 5/5 In a standing position normal alignment of the ankle and hindfoot are noted. The ankle is nontender to palpation. Crepitus was noted with ankle range of motion. Ankle range of motion was decreased compared to the contralateral ankle. Gait and Station: Guilherme is able to ambulate with a mild limp Guilherme is able to stand unassisted and maintains balance RADIOGRAPHIC INTERPRETATION: 3 weight bearing views of the right ankle were obtained and the following is my interpretation of the findings present of the X-rays: Severe soft tissue swelling is noted. Severe arthrosis of the tibiotalar joint with some mild anterior subluxation is seen. No varus or valgus deformity is seen. The subtalar, talonavicular and calcaneocuboid joints are well aligned with no signs of arthrosis. Calcification in the blood vessels is noted at the level of the ankle. REVIEW OF RELATED PREVIOUS DOCUMENTATION: No documents related to the current problem(s) were reviewed or no documents were available for review. LABORATORY RESULT INTERPRETATION: No labs were reviewed/No labs available for review DIAGNOSIS: Diagnosis Plan 1. Arthritis of ankle 2. Right ankle pain XR ankle 3+ views right MEDICAL DECISION MAKING: I had a discussion with Guilherme to make sure he has a good understanding of the diagnoses/issues that I think are present today and understands the plan moving forward. I explained to Guilherme and his family that he has severe arthritis of the ankle and the fact that he has no pain is likely due to his neuropathy. I do not think that this represents Charcot arthropathy as I see no signs of bone resorption or deformity. I explained that if he has early Charcot there is a chance that he could develop changes in terms of the alignment of the ankle. We agreed to follow him over the next year or so to ensure that he is not developing Charcot. I recommend that we see him back in 3 months for weightbearing x-rays of the right ankle. If he starts to notice deformity occurring in his foot or ankle prior to that time he understands that he needs to get off the foot and ankle and call the office for an earlier visit and evaluation. Guilherme was comfortable with the plan and will call if he has any problems or concerns. Follow up for Call our office at [phone]. Electronically signed by Devon Maki MD [facility] Department of Orthopedic surgery 08/27/2022 4:16 PM Voice recognition was used for portions of this note and although it was reviewed prior to signing some incorrect words or phrases could be present. documented in this encounter [facility] 08-02-2022 Miscellaneous Notes Spoke with pt and information listed below given. Pt verbalizes understanding. Madison Shook LPN Left message for patient to return call to office Julieta Saeed Cma Please let patient know his labs are within normal limits. Reviewed. Pt called and is notified of providers message and instructions. Pt voices understanding. Pt scheduled tomorrow with Josephine Shrestha [employer] SOFTWARE ENGINEER. Pt states when he saw the Ortho provider it was right after he had finished working a 10 hr shift, where he states he is on his feet 3/4 of the shift. Pt states he didn't know he had an issues with edema. Pt denies having any issues putting his shoes on. Jennie Landrum, RN Yeah, we will see him for this. Please schedule OV with our team. Chely from [facility] states they saw pt in office for his ankle and his brandan lower legs are showing extended edema. They are asking if your willing to see pt in office for this? If so please notify pt and set up. documented in this encounter [facility] 07-29-2022 Note HNO ID: [id number] Author: Josephine Shrestha APRN.SENIOR COGNOS DEVELOPER Service: ? Author Type: Nurse Practitioner Type: Progress Notes Filed: 07/29/2022 3:40 PM Note Text: Chief Complaint Patient presents with: Edema HPI Guilherme Frame is a 67 year old male who presents here today for Above Complaints.. Patient presents for lower leg edema. Patient was seen by ortho and noted to have swelling extending into the calf to the knee. Patient reports that he bikes regularly. Patient is being evaluated for surgical options for right ankle. Past medical history, appointments, medications, allergies reviewed. Previous Medical History PAST MEDICAL HISTORY Diagnosis Date Diabetes mellitus type II (HCC) Obesity (BMI 30.0-34.9) Previous Surgical History PAST SURGICAL HISTORY Procedure Laterality Date TONSILLECTOMY HX childhood VASECTOMY UNI/BI SPX W/POSTOP SEMEN EXAMS 1977 Family History FAMILY HISTORY Problem Relation Age of Onset No Known Problems Daughter No Known Problems Son Patient Allergies ALLERGIES No Known Allergies Current Medications Current Outpatient Medications on File Prior to Visit Medication Sig atorvastatin (LIPITOR) 20 mg tablet Take 1 tablet by mouth daily at bedtime. For cholesterol. lisinopril (ZESTRIL, PRINIVIL) 20 mg tablet Take 1 tablet by mouth once daily. metFORMIN (GLUCOPHAGE) 500 mg tablet Take 1 tablet by mouth twice daily with meals. . aspirin, enteric coated (ASPIRIN, ENTERIC COATED) 81 mg EC tablet Take 81 mg by mouth once daily. diclofenac (VOLTAREN) 1 % topical gel Apply 2 g to affected area four times daily. (Patient not taking: No sig reported) Blood Pressure Cuff - Home Use BLOOD PRESSURE CUFF FOR HOME USE. DX: LABILE BLOOD PRESSURE blood sugar diagnostic (BLOOD GLUCOSE TEST) test strip Test blood sugar(s) 1-2 times daily. Dx: Type 2 DM - Uncontrolled E11.65 Insulin: No Lancets lancets Test blood sugar(s) 1-2 times daily. Dx: Type 2 DM - Uncontrolled E11.65 Insulin: No No current facility-administered medications on file prior to visit. Social History Social History Tobacco Use Smoking status: Former Smokeless tobacco: Never Tobacco comments: teenager, less than 1 year Vaping Use Vaping Use: Never used Substance Use Topics Alcohol use: Not Currently Drug use: Not Currently Review of Symptoms REVIEW OF SYSTEMS SEE HPI EXAM: BP 134/86 Pulse 64 Resp 16 Wt 114.3 kg (252 lb) BMI 33.48 kg/m? General Appearance: Well appearing, alert, in no acute distress, well-hydrated, well nourished.. Extremities: No deformities, edema, skin discoloration, clubbing or cyanosis. Good capillary refill. , Edema: Bilateral lower extremity edema 1-2+ pitting edema on medial surface of bilateral legs only. Health Maintenance List ABDOMINAL AORTIC ANEURYSM SCREENING Never done PNEUMOCOCCAL: 65+(1 - PCV) Never done COVID-19 VACCINE(4 - Booster for Moderna series) due on 05/28/2021 DILATED RETINAL EXAM due on 2022 ADVANCE DIRECTIVE DISCUSSION Never done DEPRESSION ASSESSMENT Never done DIABETIC FOOT EXAM due on 04/10/2022 URINE ALBUMIN:CREATININE RATIO due on 10/01/2022 HBA1C due on 10/21/2022 INFLUENZA(Season Ended) due on 11/26/2022 LDL CHOLESTEROL due on 04/23/2023 ANNUAL PCP TEAM CHRONIC DISEASE VISIT due on 04/30/2023 PROSTATE CANCER SCREENING DISCUSSION due on 09/26/2023 COLORECTAL CANCER SCREENING due on 05/07/2024 DTAP,TDAP,TD(2 - Td or Tdap) due on 09/24/2026 HEPATITIS C SCREENING Completed SHINGRIX VACCINE Completed ASSESSMENT/PLAN: 1. Localized swelling of lower extremity - ICD9: 729.81, ICD10: M79.89 - PVR LEG [facility] - NT PRO BNP - COMP METABOLIC PANEL Josephine Shrestha APRN.CNP [facility] 07-29-2022 Instructions Josephine Shrestha APRN.CNP - 07/29/2022 3:38 PM EDT Complete lab work Schedule ultrasound Follow up to be determined by test results documented in this encounter [facility] 07-29-2022 History of Presen t illness Narrative Chief Complaint Patient presents with: Edema CARROLL Saab is a 67 year old male who presents here today for Above Complaints.. Patient presents for lower leg edema. Patient was seen by ortho and noted to have swelling extending into the calf to the knee. Patient reports that he bikes regularly. Patient is being evaluated for surgical options for right ankle. Past medical history, appointments, medications, allergies reviewed. Previous Medical History PAST MEDICAL HISTORY Diagnosis Date Diabetes mellitus type II (HCC) Obesity (BMI 30.0-34.9) Previous Surgical History PAST SURGICAL HISTORY Procedure Laterality Date TONSILLECTOMY HX childhood VASECTOMY UNI/BI SPX W/POSTOP SEMEN EXAMS 1977 Family History FAMILY HISTORY Problem Relation Age of Onset No Known Problems Daughter No Known Problems Son Patient Allergies ALLERGIES No Known Allergies Current Medications Current Outpatient Medications on File Prior to Visit Medication Sig atorvastatin (LIPITOR) 20 mg tablet Take 1 tablet by mouth daily at bedtime. For cholesterol. lisinopril (ZESTRIL, PRINIVIL) 20 mg tablet Take 1 tablet by mouth once daily. metFORMIN (GLUCOPHAGE) 500 mg tablet Take 1 tablet by mouth twice daily with meals. . aspirin, enteric coated (ASPIRIN, ENTERIC COATED) 81 mg EC tablet Take 81 mg by mouth once daily. diclofenac (VOLTAREN) 1 % topical gel Apply 2 g to affected area four times daily. (Patient not taking: No sig reported) Blood Pressure Cuff - Home Use BLOOD PRESSURE CUFF FOR HOME USE. DX: LABILE BLOOD PRESSURE blood sugar diagnostic (BLOOD GLUCOSE TEST) test strip Test blood sugar(s) 1-2 times daily. Dx: Type 2 DM - Uncontrolled E11.65 Insulin: No Lancets lancets Test blood sugar(s) 1-2 times daily. Dx: Type 2 DM - Uncontrolled E11.65 Insulin: No No current facility-administered medications on file prior to visit. Social History Social History Tobacco Use Smoking status: Former Smokeless tobacco: Never Tobacco comments: teenager, less than 1 year Vaping Use Vaping Use: Never used Substance Use Topics Alcohol use: Not Currently Drug use: Not Currently Review of Symptoms REVIEW OF SYSTEMS SEE HPI EXAM: BP 134/86 Pulse 64 Resp 16 Wt 114.3 kg (252 lb) BMI 33.48 kg/m General Appearance: Well appearing, alert, in no acute distress, well-hydrated, well nourished.. Extremities: No deformities, edema, skin discoloration, clubbing or cyanosis. Good capillary refill. , Edema: Bilateral lower extremity edema 1-2+ pitting edema on medial surface of bilateral legs only. Health Maintenance List ABDOMINAL AORTIC ANEURYSM SCREENING Never done PNEUMOCOCCAL: 65+(1 - PCV) Never done COVID-19 VACCINE(4 - Booster for Moderna series) due on 05/28/2021 DILATED RETINAL EXAM due on 2022 ADVANCE DIRECTIVE DISCUSSION Never done DEPRESSION ASSESSMENT Never done DIABETIC FOOT EXAM due on 04/10/2022 URINE ALBUMIN:CREATININE RATIO due on 10/01/2022 HBA1C due on 10/21/2022 INFLUENZA(Season Ended) due on 11/26/2022 LDL CHOLESTEROL due on 04/23/2023 ANNUAL PCP TEAM CHRONIC DISEASE VISIT due on 04/30/2023 PROSTATE CANCER SCREENING DISCUSSION due on 09/26/2023 COLORECTAL CANCER SCREENING due on 05/07/2024 DTAP,TDAP,TD(2 - Td or Tdap) due on 09/24/2026 HEPATITIS C SCREENING Completed SHINGRIX VACCINE Completed ASSESSMENT/PLAN: 1. Localized swelling of lower extremity - ICD9: 729.81, ICD10: M79.89 - PVR LEG [facility] LAB - NT PRO BNP - COMP METABOLIC PANEL Josephine Shrestha APRN.SENIOR COGNOS DEVELOPER documented in this encounter [facility] 06-28-2022 Miscellaneous Notes ROBERT 04/30/22 No upcoming appointment scheduled. Zulma Martinez MA Patient has been identified by name and date of : Yes Requested Prescriptions Pending Prescriptions Disp Refills atorvastatin (LIPITOR) 20 mg tablet 90 tablet 1 Sig: Take 1 tablet by mouth daily at bedtime. For cholesterol. RX INSTRUCTIONS: Patient aware RX will be sent to pharmacy. No need to notify patient. Clary Moreno Pss documented in this encounter [facility] 05-24-2022 Miscellaneous Notes ROBERT 11/20/21 No upcoming appointment scheduled. Mary Caro LPN Patient has been identified by name and date of : Yes Requested Prescriptions Pending Prescriptions Disp Refills lisinopril (ZESTRIL, PRINIVIL) 20 mg tablet 90 tablet 3 Sig: Take 1 tablet by mouth once daily. RX INSTRUCTIONS: Patient aware RX will be sent to pharmacy. No need to notify patient. [facility] documented in this encounter [facility] 04-30-2022 Note HNO ID: [id number] Author: Aracelis Antoine APRN.RAFAELA Service: ? Author Type: Nurse Practitioner Type: Progress Notes Filed: 04/30/2022 3:14 PM Note Text: 04/30/2022 Patient presents with: Recheck SUBJECTIVE: This is a 67 year old that is here today for Above Complaints. Since last office appointment has been in good health without ER visits or hospitalizations. DIABETES MELLITUS: Mr. Saab was last seen on 10/07/2021. Since our last visit he denies excessive thirst or increased frequency of urination, chest pain or dyspnea , numbness, tingling or pain in extremities, new or unusual visual symptoms, low sugar/hypoglycemic reactions, weight loss/gain, lightheadedness/dizziness, and bowel changes/loose stools. Follows a diabetic diet most of the time. Admits he did eat quite a bit of sweets over the holidays. He is compliant with medication(s) and is tolerating med(s) without any side effects. He reports checking his glucose on a infrequent to not at all basis schedule. Patient's last HgA1C was Hemoglobin A1C (%) Date Value 04/23/2022 7.2 10/01/2021 6.8 04/08/2021 6.8 04/01/2020 7.4 ) HTN: Patient is compliant with meds Yes Monitors bp at home: No. Denies side effects: Yes. Chest pain: No. Dyspnea: No. Edema: No. Palpitations: No. Syncope: No. Headache: No. Dizziness: No. HYPERLIPIDEMIA: Patient is taking medications: Yes. Patient is watching diet: somewhat. Patient denies myalgias: Yes. Patient denies gi upset: Yes PAST MEDICAL HISTORY Diagnosis Date Diabetes mellitus type II (HCC) Obesity (BMI 30.0-34.9) ALLERGIES Patient has no known allergies. MEDICATIONS Current Outpatient Medications Medication Sig metFORMIN (GLUCOPHAGE) 500 mg tablet Take 1 tablet by mouth twice daily with meals. . lisinopril (ZESTRIL, PRINIVIL) 20 mg tablet Take 1 tablet by mouth once daily. aspirin, enteric coated (ASPIRIN, ENTERIC COATED) 81 mg EC tablet Take 81 mg by mouth once daily. diclofenac (VOLTAREN) 1 % topical gel Apply 2 g to affected area four times daily. (Patient not taking: No sig reported) atorvastatin (LIPITOR) 20 mg tablet Take 1 tablet by mouth daily at bedtime. For cholesterol. Blood Pressure Cuff - Home Use BLOOD PRESSURE CUFF FOR HOME USE. DX: LABILE BLOOD PRESSURE blood sugar diagnostic (BLOOD GLUCOSE TEST) test strip Test blood sugar(s) 1-2 times daily. Dx: Type 2 DM - Uncontrolled E11.65 Insulin: No Lancets lancets Test blood sugar(s) 1-2 times daily. Dx: Type 2 DM - Uncontrolled E11.65 Insulin: No No current facility-administered medications for this visit. Medications and allergies reviewed by this provider. SOCIAL HISTORY Social History Tobacco Use Smoking status: Former Smokeless tobacco: Never Tobacco comments: teenager, less than 1 year Vaping Use Vaping Use: Never used Substance Use Topics Alcohol use: Not Currently Drug use: Not Currently REVIEW OF SYSTEMS All other reviewed and negative other than HPI. OBJECTIVE: BP 138/78 Pulse 85 Wt 112.5 kg (248 lb) SpO2 98% BMI 32.94 kg/m? . Vital signs reviewed by this provider. APPEARANCE Well appearing, alert, in no acute distress, well-hydrated, well nourished. EYES conjunctiva and sclera normal. HEART RRR with normal S1 and S2, no murmurs, no gallops, no JVD appreciated LUNG clear to auscultation. No wheezes, rhonchi or rales EXTREMITIES Extremities normal, No deformities, No skin discoloration, and No edema SKIN Skin color, texture, turgor normal, no suspicious rashes or lesions to exposed skin Component Latest Ref Rng AND Units 04/23/2022 Protein, Total 6.3 - 8.0 g/dL 7.3 Albumin 3.9 - 4.9 g/dL 4.1 Calcium 8.5 - 10.2 mg/dL 9.5 Bilirubin, Total 0.2 - 1.3 mg/dL 1.2 Alkaline Phosphatase 38 - 113 U/L 90 AST 14 - 40 U/L 15 ALT 10 - 54 U/L 15 Glucose 74 - 99 mg/dL 133 (H) BUN 9 - 24 mg/dL 20 Creatinine 0.73 - 1.22 mg/dL 1.14 Sodium 136 - 144 mmol/L 141 Potassium 3.7 - 5.1 mmol/L 4.8 Chloride 97 - 105 mmol/L 105 CO2 22 - 30 mmol/L 28 Anion Gap 9 - 18 mmol/L 8 (L) eGFR >=60 mL/min/1.73mA? 71 Cholesterol, Total <200 mg/dL 111 Triglyceride <150 mg/dL 131 HDL Cholesterol >39 mg/dL 38 (L) Non HDL Cholesterol <130 mg/dL 73 Fasting Time hrs 13 VLDL Cholesterol <30 mg/dL 26 TC:HDL Ratio <5.10 2.92 LDL Cholesterol <100 mg/dL 47 LDL:HDL Ratio <2.54 1.24 Hemoglobin A1C 4.3 - 5.6 % 7.2 (H) Estimated Average Glucose mg/dL 160 ABDOMINAL AORTIC ANEURYSM SCREENING Never done PNEUMOCOCCAL: 65+(1 - PCV) Never done COLORECTAL CANCER SCREENING due on 05/08/2021 COVID-19 VACCINE(4 - Booster for Moderna series) due on 05/28/2021 INFLUENZA(1) due on 11/26/2021 DILATED RETINAL EXAM due on 2022 ADVANCE DIRECTIVE DISCUSSION Never done DEPRESSION ASSESSMENT Never done DIABETIC FOOT EXAM due on 04/10/2022 URINE ALBUMIN:CREATININE RATIO due on 10/01/2022 HBA1C due on 10/21/2022 ANNUAL PCP TEAM CHRONIC DISEASE VISIT (more content not included)... [facility] 04-30-2022 History of Presen t illness Narrative 04/30/2022 Patient presents with: Recheck SUBJECTIVE: This is a 67 year old that is here today for Above Complaints. Since last office appointment has been in good health without ER visits or hospitalizations. DIABETES MELLITUS: Mr. Saab was last seen on 10/07/2021. Since our last visit he denies excessive thirst or increased frequency of urination, chest pain or dyspnea , numbness, tingling or pain in extremities, new or unusual visual symptoms, low sugar/hypoglycemic reactions, weight loss/gain, lightheadedness/dizziness, and bowel changes/loose stools. Follows a diabetic diet most of the time. Admits he did eat quite a bit of sweets over the holidays. He is compliant with medication(s) and is tolerating med(s) without any side effects. He reports checking his glucose on a infrequent to not at all basis schedule. Patient's last HgA1C was Hemoglobin A1C (%) Date Value 04/23/2022 7.2 10/01/2021 6.8 04/08/2021 6.8 04/01/2020 7.4 ) HTN: Patient is compliant with meds Yes Monitors bp at home: No. Denies side effects: Yes. Chest pain: No. Dyspnea: No. Edema: No. Palpitations: No. Syncope: No. Headache: No. Dizziness: No. HYPERLIPIDEMIA: Patient is taking medications: Yes. Patient is watching diet: somewhat. Patient denies myalgias: Yes. Patient denies gi upset: Yes PAST MEDICAL HISTORY Diagnosis Date Diabetes mellitus type II (HCC) Obesity (BMI 30.0-34.9) ALLERGIES Patient has no known allergies. MEDICATIONS Current Outpatient Medications Medication Sig metFORMIN (GLUCOPHAGE) 500 mg tablet Take 1 tablet by mouth twice daily with meals. . lisinopril (ZESTRIL, PRINIVIL) 20 mg tablet Take 1 tablet by mouth once daily. aspirin, enteric coated (ASPIRIN, ENTERIC COATED) 81 mg EC tablet Take 81 mg by mouth once daily. diclofenac (VOLTAREN) 1 % topical gel Apply 2 g to affected area four times daily. (Patient not taking: No sig reported) atorvastatin (LIPITOR) 20 mg tablet Take 1 tablet by mouth daily at bedtime. For cholesterol. Blood Pressure Cuff - Home Use BLOOD PRESSURE CUFF FOR HOME USE. DX: LABILE BLOOD PRESSURE blood sugar diagnostic (BLOOD GLUCOSE TEST) test strip Test blood sugar(s) 1-2 times daily. Dx: Type 2 DM - Uncontrolled E11.65 Insulin: No Lancets lancets Test blood sugar(s) 1-2 times daily. Dx: Type 2 DM - Uncontrolled E11.65 Insulin: No No current facility-administered medications for this visit. Medications and allergies reviewed by this provider. SOCIAL HISTORY Social History Tobacco Use Smoking status: Former Smokeless tobacco: Never Tobacco comments: teenager, less than 1 year Vaping Use Vaping Use: Never used Substance Use Topics Alcohol use: Not Currently Drug use: Not Currently REVIEW OF SYSTEMS All other reviewed and negative other than HPI. OBJECTIVE: BP 138/78 Pulse 85 Wt 112.5 kg (248 lb) SpO2 98% BMI 32.94 kg/m . Vital signs reviewed by this provider. APPEARANCE Well appearing, alert, in no acute distress, well-hydrated, well nourished. EYES conjunctiva and sclera normal. HEART RRR with normal S1 and S2, no murmurs, no gallops, no JVD appreciated LUNG clear to auscultation. No wheezes, rhonchi or rales EXTREMITIES Extremities normal, No deformities, No skin discoloration, and No edema SKIN Skin color, texture, turgor normal, no suspicious rashes or lesions to exposed skin Component Latest Ref Rng & Units 04/23/2022 Protein, Total 6.3 - 8.0 g/dL 7.3 Albumin 3.9 - 4.9 g/dL 4.1 Calcium 8.5 - 10.2 mg/dL 9.5 Bilirubin, Total 0.2 - 1.3 mg/dL 1.2 Alkaline Phosphatase 38 - 113 U/L 90 AST 14 - 40 U/L 15 ALT 10 - 54 U/L 15 Glucose 74 - 99 mg/dL 133 (H) BUN 9 - 24 mg/dL 20 Creatinine 0.73 - 1.22 mg/dL 1.14 Sodium 136 - 144 mmol/L 141 Potassium 3.7 - 5.1 mmol/L 4.8 Chloride 97 - 105 mmol/L 105 CO2 22 - 30 mmol/L 28 Anion Gap 9 - 18 mmol/L 8 (L) eGFR >=60 mL/min/1.73m 71 Cholesterol, Total <200 mg/dL 111 Triglyceride <150 mg/dL 131 HDL Cholesterol >39 mg/dL 38 (L) Non HDL Cholesterol <130 mg/dL 73 Fasting Time hrs 13 VLDL Cholesterol <30 mg/dL 26 TC:HDL Ratio <5.10 2.92 LDL Cholesterol <100 mg/dL 47 LDL:HDL Ratio <2.54 1.24 Hemoglobin A1C 4.3 - 5.6 % 7.2 (H) Estimated Average Glucose mg/dL 160 ABDOMINAL AORTIC ANEURYSM SCREENING Never done PNEUMOCOCCAL: 65+(1 - PCV) Never done COLORECTAL CANCER SCREENING due on 05/08/2021 COVID-19 VACCINE(4 - Booster for Moderna series) due on 05/28/2021 INFLUENZA(1) due on 11/26/2021 DILATED RETINAL EXAM due on 2022 ADVANCE DIRECTIVE DISCUSSION Never done DEPRESSION ASSESSMENT Never done DIABETIC FOOT EXAM due on 04/10/2022 URINE ALBUMIN:CREATININE RATIO due on 10/01/2022 HBA1C due on 10/21/2022 ANNUAL PCP TEAM CHRONIC DISEASE VISIT due on 11/20/2022 LDL CHOLESTEROL due on 04/23/2023 PROSTATE CANCER SCREENING DISCUSSION due on 09/26/2023 DTAP,TDAP,TD(2 - Td or Tdap) due on 09/24/2026 HEPATITIS C SCREENING Completed SHINGRIX VACCINE Completed ASSESSMENT/PLAN: 1. Diabetes mellitus type II (HCC) - ICD9: 250.00, ICD10: E11.9 (primary diagnosis) worsening control- patient is going to work on diet and exercise - Continue current medications - Blood glucose monitoring on a once a day schedule - Encouraged regular aerobic exercise and weight loss - Follow up in 6 months, sooner should any other issues arise. - Discussed diabetic education issues of diet and importance of exercise with patient. - LDL goal of <100 - METFORMIN 500 MG TABLET 2. Hyperlipidemia, mixed - ICD9: 272.2, ICD10: E78.2 - good control - Continue current medication. - Encouraged following a low fat, low cholesterol diet. - Discussed the benefits of regular aerobic exercise and weight loss. - Follow up in 6 months. - Encouraged following a low carbohydrate, healthy oil intake diet. 3. Hypertension, unspecified type - ICD9: 401.9, ICD10: I10 - good control - Continue current medication(s) - Encouraged dietary sodium restriction/DASH diet - Recommended regular aerobic exercise. - Recommend home blood pressure monitoring, to bring results in on next visit - Discussed need and benefit for weight loss. - Goal of BP <140/90 - Recommended no refined sugar, low refined starch, healthy oil intake (olive oil), healthy protein (fish) along the lines of the Mediterranean diet. Aracelis Antoine APRN.CNP Prescription instructions reviewed with patient as applicable. Patient advised if symptoms do not improve or if symptoms worsen sooner, to contact their primary care physician. Potential red flag symptoms discussed with the patient. Reviewed appropriate action plan to take if red flag symptoms occur. Patient agreeable to treatment plan. I spent a total of 25 minutes on the date of the service which included preparing to see the patient, [id number] patient care, completing clinical documentation, obtaining and/or reviewing separately obtained history, performing a medically appropriate examination, counseling and educating the patient/family/caregiver, and ordering medications, tests, or procedures. documented in this encounter [facility] 04-21-2022 Miscellaneous Notes Left a message with information listed below. Madison Shook LPN Addended by: ARACELIS ANTOINE on: 04/21/2022 08:36 AM Modules accepted: Orders Please call patient and let him know I placed orders for labs. Should fast 10 hours prior. Aracelis Antoine APRN.RAFAELA Spoke with pt and information listed below given. Pt verbalizes understanding. Pt scheduled for apt. Pt asking if he needs to get blood work done prior to apt. Please review and advise pt . Madison Shook LPN Will send in 30 day rx. Patient due for 6 month DM follow up. Please call to schedule OV with or [facility]. Patient has been identified by name and date of : Yes Requested Prescriptions Pending Prescriptions Disp Refills metFORMIN (GLUCOPHAGE) 500 mg tablet 180 tablet 1 Sig: Take 1 tablet by mouth twice daily with meals. . RX INSTRUCTIONS: Patient aware RX will be sent to pharmacy. No need to notify patient. Marta Corey documented in this encounter [facility] 03-24-2022 Miscellaneous Notes Patient has been identified by name and date of : Yes Last office visit in this department: 11/20/2021 Labs-7/7/22 NOV-none med filled 11/09/21 RX INSTRUCTIONS: Patient aware RX will be sent to pharmacy. No need to notify patient. Patient phones requesting refills as follows: Requested Prescriptions Pending Prescriptions Disp Refills lisinopril (ZESTRIL, PRINIVIL) 20 mg tablet 30 tablet 1 Sig: Take 1 tablet by mouth once daily. Please review and advise. Ela Ivy Pss documented in this encounter [facility] 02-11-2022 Note HNO ID: [id number] Author: Jere Pina Service: ? Author Type: Physician Type: Progress Notes Filed: 02/11/2022 12:21 PM Note Text: FOLLOW UP PODIATRIC OFFICE VISIT Chief Complaint: This 67 year old who presents for follow up:right ankle pain Patient presents to clinic for follow-up right ankle pain Patient has partial tear of peroneal tendon and also has severe arthritis of right ankle joint He was given pneumatic boot but he felt that caused more pain He was given an order for afo but he has to pay well over 800 dollars and he does not have the money available to pay for that so he is not purusing. He wonders if there are any other options. PAIN EVALUATION 02/11/2022 0942 Pain Level: 1 Pain Location: Ankle-Right Description: Sharp Duration Amount of Time: 3 Duration Units: Weeks Frequency: Intermittent Intervention/Comfort measure: Reposition;Relaxation;Distractio ns Hemoglobin A1C Date Value Ref Range Status 10/01/2021 6.8 (H) 4.3 - 5.6 % Final Comment: [place] [employer] guidelines indicate that patients with HgbA1c in the range 5.7-6.4% are at increased risk for development of diabetes, and intervention by lifestyle modification may be beneficial. HgbA1c greater or equal to 6.5% is considered diagnostic of diabetes. PCP: Mary Diez MD PAST MEDICAL HISTORY Diagnosis Date Diabetes mellitus type II (HCC) Obesity (BMI 30.0-34.9) Current Outpatient Medications Medication Sig aspirin, enteric coated (ASPIRIN, ENTERIC COATED) 81 mg EC tablet Take 81 mg by mouth once daily. lisinopril (ZESTRIL, PRINIVIL) 20 mg tablet Take 1 tablet by mouth once daily. metFORMIN (GLUCOPHAGE) 500 mg tablet Take 1 tablet by mouth twice daily with meals. . atorvastatin (LIPITOR) 20 mg tablet Take 1 tablet by mouth daily at bedtime. For cholesterol. Blood Pressure Cuff - Home Use BLOOD PRESSURE CUFF FOR HOME USE. DX: LABILE BLOOD PRESSURE blood sugar diagnostic (BLOOD GLUCOSE TEST) test strip Test blood sugar(s) 1-2 times daily. Dx: Type 2 DM - Uncontrolled E11.65 Insulin: No Lancets lancets Test blood sugar(s) 1-2 times daily. Dx: Type 2 DM - Uncontrolled E11.65 Insulin: No diclofenac (VOLTAREN) 1 % topical gel Apply 2 g to affected area four times daily. (Patient not taking: No sig reported) No current facility-administered medications for this visit. ALLERGIES No Known Allergies PAST SURGICAL HISTORY Procedure Laterality Date TONSILLECTOMY HX childhood VASECTOMY UNI/BI SPX W/POSTOP SEMEN EXAMS 1977 Physical Exam: OBJECTIVE: Constitutional: Pt is a well developed 67 year old male who is alert, oriented, cooperative and in no apparent distress. Eyes: Following during examination. No redness or drainage. Respiratory: RR normal and nonlabored. Even breathing. No evidence of distress. Psychology: Patient is engaged during conversation. Normal affect and mood. Does not appear depressed or anxious. NVSI unchanged from previous visit. Dermatological: Nails 1-5 b/l are normal. Webspaces clean and dry 1-4 b/l. Skin appears well hydrated and supple. good color, texture, turgor. No open lesions present. No callosities present. Musculoskeletal/Orthopaedic: Patient has pain to palpation of right ankle joint There is decreased rom of right ankle and right subtalar joint No pain to palpation of peroneal tendon ASSESSMENT: (M25.571) Acute right ankle pain (primary encounter diagnosis) (M19.079) Arthritis of ankle (S86.311A) Tear of peroneal tendon, right, initial encounter (M76.821) Posterior tibial tendinitis of right lower extremity PLAN: Discussed right ankle pain. Per patient, pain is tolerable Discussed prior work up including afo and boot. I do think afo would help to provide patient with better support but due to cost he is not going to pursue Will try powerstep inserts If patietn continues to have pain, could make referral for surgical intervention. Patient is not interested in surgery at this time. Jere Pina DPM [facility] 02-11-2022 Note HNO ID: [id number] Author: Jennie Rehman RN Service: ? Author Type: Registered Nurse Type: Progress Notes Filed: 02/11/2022 12:21 PM Note Text: AMB ROOMING INTAKE FLOWSHEET DATA Risk Screening Do you have concerns about personal safety or safety in the home?: No Pain Pain Level: 1 Pain Location: Ankle-Right Description: Sharp Duration Amount of Time: 3 Duration Units: Weeks Frequency: Intermittent Intervention/Comfort measure: Reposition, Relaxation, Distractions Patient presents with: Right Ankle - Established Patient, Follow Up, Pain [facility] 02-11-2022 Instructions Jere Pina - 02/11/2022 10:10 AM EST Powerstep Original Full length. Can purchase at [employer] here in [place], [employer] in [place] or [place]. Also can find in [place] in [facility]. Powersteps can also be purchased online, starting around $25.00 If you have a metatarsal or dancer pad for your feet apply the pad directly to the insole so you can interchange between your shoes. Find a shoe with a removable insole and take this out and replace with your powerstep insole. Always bring powersteps with you when shopping for shoes so that you can make sure that everything fits well together documented in this encounter [facility] 02-11-2022 History of Presen t illness Narrative FOLLOW UP PODIATRIC OFFICE VISIT Chief Complaint: This 67 year old who presents for follow up:right ankle pain Patient presents to clinic for follow-up right ankle pain Patient has partial tear of peroneal tendon and also has severe arthritis of right ankle joint He was given pneumatic boot but he felt that caused more pain He was given an order for afo but he has to pay well over 800 dollars and he does not have the money available to pay for that so he is not purusing. He wonders if there are any other options. PAIN EVALUATION 02/11/2022 0942 Pain Level: 1 Pain Location: Ankle-Right Description: Sharp Duration Amount of Time: 3 Duration Units: Weeks Frequency: Intermittent Intervention/Comfort measure: Reposition;Relaxation;Distractio ns Hemoglobin A1C Date Value Ref Range Status 10/01/2021 6.8 (H) 4.3 - 5.6 % Final Comment: [place] [employer] guidelines indicate that patients with HgbA1c in the range 5.7-6.4% are at increased risk for development of diabetes, and intervention by lifestyle modification may be beneficial. HgbA1c greater or equal to 6.5% is considered diagnostic of diabetes. PCP: Mary Diez MD PAST MEDICAL HISTORY Diagnosis Date Diabetes mellitus type II (HCC) Obesity (BMI 30.0-34.9) Current Outpatient Medications Medication Sig aspirin, enteric coated (ASPIRIN, ENTERIC COATED) 81 mg EC tablet Take 81 mg by mouth once daily. lisinopril (ZESTRIL, PRINIVIL) 20 mg tablet Take 1 tablet by mouth once daily. metFORMIN (GLUCOPHAGE) 500 mg tablet Take 1 tablet by mouth twice daily with meals. . atorvastatin (LIPITOR) 20 mg tablet Take 1 tablet by mouth daily at bedtime. For cholesterol. Blood Pressure Cuff - Home Use BLOOD PRESSURE CUFF FOR HOME USE. DX: LABILE BLOOD PRESSURE blood sugar diagnostic (BLOOD GLUCOSE TEST) test strip Test blood sugar(s) 1-2 times daily. Dx: Type 2 DM - Uncontrolled E11.65 Insulin: No Lancets lancets Test blood sugar(s) 1-2 times daily. Dx: Type 2 DM - Uncontrolled E11.65 Insulin: No diclofenac (VOLTAREN) 1 % topical gel Apply 2 g to affected area four times daily. (Patient not taking: No sig reported) No current facility-administered medications for this visit. ALLERGIES No Known Allergies PAST SURGICAL HISTORY Procedure Laterality Date TONSILLECTOMY HX childhood VASECTOMY UNI/BI SPX W/POSTOP SEMEN EXAMS 1977 Physical Exam: OBJECTIVE: Constitutional: Pt is a well developed 67 year old male who is alert, oriented, cooperative and in no apparent distress. Eyes: Following during examination. No redness or drainage. Respiratory: RR normal and nonlabored. Even breathing. No evidence of distress. Psychology: Patient is engaged during conversation. Normal affect and mood. Does not appear depressed or anxious. NVSI unchanged from previous visit. Dermatological: Nails 1-5 b/l are normal. Webspaces clean and dry 1-4 b/l. Skin appears well hydrated and supple. good color, texture, turgor. No open lesions present. No callosities present. Musculoskeletal/Orthopaedic: Patient has pain to palpation of right ankle joint There is decreased rom of right ankle and right subtalar joint No pain to palpation of peroneal tendon ASSESSMENT: (M25.571) Acute right ankle pain (primary encounter diagnosis) (M19.079) Arthritis of ankle (S86.311A) Tear of peroneal tendon, right, initial encounter (M76.821) Posterior tibial tendinitis of right lower extremity PLAN: Discussed right ankle pain. Per patient, pain is tolerable Discussed prior work up including afo and boot. I do think afo would help to provide patient with better support but due to cost he is not going to pursue Will try powerstep inserts If patietn continues to have pain, could make referral for surgical intervention. Patient is not interested in surgery at this time. Jere Pina DPM AMB ROOMING INTAKE FLOWSHEET DATA Risk Screening Do you have concerns about personal safety or safety in the home?: No Pain Pain Level: 1 Pain Location: Ankle-Right Description: Sharp Duration Amount of Time: 3 Duration Units: Weeks Frequency: Intermittent Intervention/Comfort measure: Reposition, Relaxation, Distractions Patient presents with: Right Ankle - Established Patient, Follow Up, Pain documented in this encounter [facility] 01-14-2022 Note HNO ID: [id number] Author: Jere Pina Service: ? Author Type: Physician Type: Progress Notes Filed: 01/15/2022 9:27 AM Note Text: FOLLOW UP PODIATRIC OFFICE VISIT Chief Complaint: This 66 year old who presents for follow up:right foot and ankle pain Patient presents to clinic for follow-up right foot and ankle pain Patient currently has no pain Was using boot but the pain was made more severe with the boot. Patient is currently wearing sneakers. PAIN EVALUATION 01/14/2022 0920 Pain Level: 2 Pain Location: Ankle-Right Description: Sharp Duration Amount of Time: 5 Duration Units: Months Frequency: Intermittent Intervention/Comfort measure: Reposition;Relaxation;Medication ;Splinting Hemoglobin A1C Date Value Ref Range Status 10/01/2021 6.8 (H) 4.3 - 5.6 % Final Comment: [place] [employer] guidelines indicate that patients with HgbA1c in the range 5.7-6.4% are at increased risk for development of diabetes, and intervention by lifestyle modification may be beneficial. HgbA1c greater or equal to 6.5% is considered diagnostic of diabetes. PCP: Mary Diez MD PAST MEDICAL HISTORY Diagnosis Date Diabetes mellitus type II (HCC) Obesity (BMI 30.0-34.9) Current Outpatient Medications Medication Sig aspirin, enteric coated (ASPIRIN, ENTERIC COATED) 81 mg EC tablet Take 81 mg by mouth once daily. lisinopril (ZESTRIL, PRINIVIL) 20 mg tablet Take 1 tablet by mouth once daily. metFORMIN (GLUCOPHAGE) 500 mg tablet Take 1 tablet by mouth twice daily with meals. . atorvastatin (LIPITOR) 20 mg tablet Take 1 tablet by mouth daily at bedtime. For cholesterol. Blood Pressure Cuff - Home Use BLOOD PRESSURE CUFF FOR HOME USE. DX: LABILE BLOOD PRESSURE blood sugar diagnostic (BLOOD GLUCOSE TEST) test strip Test blood sugar(s) 1-2 times daily. Dx: Type 2 DM - Uncontrolled E11.65 Insulin: No Lancets lancets Test blood sugar(s) 1-2 times daily. Dx: Type 2 DM - Uncontrolled E11.65 Insulin: No diclofenac (VOLTAREN) 1 % topical gel Apply 2 g to affected area four times daily. (Patient not taking: No sig reported) No current facility-administered medications for this visit. ALLERGIES No Known Allergies PAST SURGICAL HISTORY Procedure Laterality Date TONSILLECTOMY HX childhood VASECTOMY UNI/BI SPX W/POSTOP SEMEN EXAMS 1977 Physical Exam: OBJECTIVE: Constitutional: Pt is a well developed 66 year old male who is alert, oriented, cooperative and in no apparent distress. Eyes: Following during examination. No redness or drainage. Respiratory: RR normal and nonlabored. Even breathing. No evidence of distress. Psychology: Patient is engaged during conversation. Normal affect and mood. Does not appear depressed or anxious. NVSI unchanged from previous visit. Dermatological: Nails 1-5 b/l are normal. Webspaces clean and dry 1-4 b/l. Skin appears well hydrated and supple. good color, texture, turgor. No open lesions present. No callosities present. Musculoskeletal/Orthopaedic: Patient has no pain to palpation of b/l lower extremity Severe arthritis is noted to right ankle and mild arthritis to right subtalar joint No pain to right lateral ankle along peroneal tendon. ASSESSMENT: (M25.571) Acute right ankle pain (primary encounter diagnosis) (M19.079) Arthritis of ankle (S86.311A) Tear of peroneal tendon, right, initial encounter (M76.821) Posterior tibial tendinitis of right lower extremity PLAN: Discussed right ankle arthritis. Patient has no pain on exam. Will have him pursue the AFO. If pain were to develop in future, could consider hindfoot arthrodesis Discussed peroneal tear. Patient with no pain. Will pursue afo Jere Pina DPM [facility] 01-14-2022 Note HNO ID: [id number] Author: Izzy Mcgill LPN Service: ? Author Type: LICENSED NURSE Type: Progress Notes Filed: 01/15/2022 9:27 AM Note Text: AMB ROOMING INTAKE FLOWSHEET DATA Pain Pain Level: 2 Pain Location: Ankle-Right Description: Sharp Duration Amount of Time: 5 Duration Units: Months Frequency: Intermittent Intervention/Comfort measure: Reposition, Relaxation, Medication, Splinting Patient presents with: Right Ankle - Established Patient, Follow Up, Pain Patient was placed in boot 2 weeks ago patient states boot made foot worse. Izzy Mcgill LPN [facility] 01-14-2022 Instructions Jere Pina - 01/14/2022 9:47 AM EDT Would try afo. If pain returns, consider surgery referral documented in this encounter [facility] 01-14-2022 History of Presen t illness Narrative FOLLOW UP PODIATRIC OFFICE VISIT Chief Complaint: This 66 year old who presents for follow up:right foot and ankle pain Patient presents to clinic for follow-up right foot and ankle pain Patient currently has no pain Was using boot but the pain was made more severe with the boot. Patient is currently wearing sneakers. PAIN EVALUATION 01/14/2022 0920 Pain Level: 2 Pain Location: Ankle-Right Description: Sharp Duration Amount of Time: 5 Duration Units: Months Frequency: Intermittent Intervention/Comfort measure: Reposition;Relaxation;Medication ;Splinting Hemoglobin A1C Date Value Ref Range Status 10/01/2021 6.8 (H) 4.3 - 5.6 % Final Comment: [place] [employer] guidelines indicate that patients with HgbA1c in the range 5.7-6.4% are at increased risk for development of diabetes, and intervention by lifestyle modification may be beneficial. HgbA1c greater or equal to 6.5% is considered diagnostic of diabetes. PCP: Mary Diez MD PAST MEDICAL HISTORY Diagnosis Date Diabetes mellitus type II (HCC) Obesity (BMI 30.0-34.9) Current Outpatient Medications Medication Sig aspirin, enteric coated (ASPIRIN, ENTERIC COATED) 81 mg EC tablet Take 81 mg by mouth once daily. lisinopril (ZESTRIL, PRINIVIL) 20 mg tablet Take 1 tablet by mouth once daily. metFORMIN (GLUCOPHAGE) 500 mg tablet Take 1 tablet by mouth twice daily with meals. . atorvastatin (LIPITOR) 20 mg tablet Take 1 tablet by mouth daily at bedtime. For cholesterol. Blood Pressure Cuff - Home Use BLOOD PRESSURE CUFF FOR HOME USE. DX: LABILE BLOOD PRESSURE blood sugar diagnostic (BLOOD GLUCOSE TEST) test strip Test blood sugar(s) 1-2 times daily. Dx: Type 2 DM - Uncontrolled E11.65 Insulin: No Lancets lancets Test blood sugar(s) 1-2 times daily. Dx: Type 2 DM - Uncontrolled E11.65 Insulin: No diclofenac (VOLTAREN) 1 % topical gel Apply 2 g to affected area four times daily. (Patient not taking: No sig reported) No current facility-administered medications for this visit. ALLERGIES No Known Allergies PAST SURGICAL HISTORY Procedure Laterality Date TONSILLECTOMY HX childhood VASECTOMY UNI/BI SPX W/POSTOP SEMEN EXAMS 1977 Physical Exam: OBJECTIVE: Constitutional: Pt is a well developed 66 year old male who is alert, oriented, cooperative and in no apparent distress. Eyes: Following during examination. No redness or drainage. Respiratory: RR normal and nonlabored. Even breathing. No evidence of distress. Psychology: Patient is engaged during conversation. Normal affect and mood. Does not appear depressed or anxious. NVSI unchanged from previous visit. Dermatological: Nails 1-5 b/l are normal. Webspaces clean and dry 1-4 b/l. Skin appears well hydrated and supple. good color, texture, turgor. No open lesions present. No callosities present. Musculoskeletal/Orthopaedic: Patient has no pain to palpation of b/l lower extremity Severe arthritis is noted to right ankle and mild arthritis to right subtalar joint No pain to right lateral ankle along peroneal tendon. ASSESSMENT: (M25.571) Acute right ankle pain (primary encounter diagnosis) (M19.079) Arthritis of ankle (S86.311A) Tear of peroneal tendon, right, initial encounter (M76.821) Posterior tibial tendinitis of right lower extremity PLAN: Discussed right ankle arthritis. Patient has no pain on exam. Will have him pursue the AFO. If pain were to develop in future, could consider hindfoot arthrodesis Discussed peroneal tear. Patient with no pain. Will pursue afo Jere Pina DPM AMB ROOMING INTAKE FLOWSHEET DATA Pain Pain Level: 2 Pain Location: Ankle-Right Description: Sharp Duration Amount of Time: 5 Duration Units: Months Frequency: Intermittent Intervention/Comfort measure: Reposition, Relaxation, Medication, Splinting Patient presents with: Right Ankle - Established Patient, Follow Up, Pain Patient was placed in boot 2 weeks ago patient states boot made foot worse. Izzy Mcgill LPN documented in this encounter [facility] 12-29-2021 Miscellaneous Notes Patient called in stating he's still felling popping. Advised in to try blowing up air bags for more support if that doesn't work let our office know and we will come up with another plan. Izzy Mcgill LPN Returned patients call regarding boot. No response. Left VM for patient to call back office. Izzy Mcgill LPN documented in this encounter [facility] 12-28-2021 Note HNO ID: [id number] Author: RT Kelly(R) Service: ? Author Type: Technologist Type: Progress Notes Filed: 12/28/2021 10:37 AM Note Text: Radiology Service Progress Note PATIENT NAME: Guilherme Saab DATE OF SERVICE: December 28, 2021 TIME: 10:20 AM PATIENT IDENTITY VERIFICATION COMPLETED USING TWO (2) IDENTIFIERS: Name and Date of confirmed by patient verbally. FALL SCREENING: Has the patient had 2 falls in the last year or 1 fall with injury or currently using an Ambulatory Assistive Device (Walker, Cane, Wheelchair, Crutches, etc.)? No PATIENT GENDER DATA: Male PATIENT RELEVANT IMPLANT DATA REVIEWED: Not Applicable RADIOLOGY DEPARTMENT: General X-ray: Exam(s) Completed: Lower Extremity X-Ray(s): Ankle, Bilateral and Wt. Bearing and Feet, Bilateral and Wt. Bearing PERIPHERAL IV DATA: Not applicable SIGNED BY: RT Kelly(R) December 28, 2021 10:20 AM [facility] 12-28-2021 Note HNO ID: [id number] Author: Jere Pina Service: ? Author Type: Physician Type: Progress Notes Filed: 12/28/2021 10:01 AM Note Text: Consultation requested by Dr. Nunes for an opinion regarding right ankle swelling. My final recommendations will be communicated back to the requesting physician by way of shared Medical record or letter to requesting physician via US mail. Initial Podiatric Office Visit: Chief Complaint: This 66 year old male who presents with chief complaint:right ankle swelling HPI Patient presents to clinic with complaint of right ankle swelling Swelling has been present since Middle of August. He states her first noticed the swelling after he was on a bicycycle ride. He noticed the right ankle was stiff. He contacted his pcp. Xrays were ordered and he was told he had severe arthritis. He was given topical pain cream which did not help with the swelling. He had follow-up with his pcp and an MRI was ordered. Mri does confirm peroneal tendon tear. Patient has no pain. He only complains of stiffness and swelling. Patient is diabetic. Patient had a1c in September that was 6.8. Patient does not smoke He swims and rides a recumbant bicycle. PAIN EVALUATION No data found in the last 1 encounters. Hemoglobin A1C (%) Date Value 10/01/2021 6.8 04/08/2021 6.8 04/01/2020 7.4 10/18/2019 6.9 07/12/2019 7.0 04/13/2019 7.0 PCP: Mary Diez MD PAST MEDICAL HISTORY Diagnosis Date Diabetes mellitus type II (HCC) Obesity (BMI 30.0-34.9) Current Outpatient Medications Medication Sig aspirin, enteric coated (ASPIRIN, ENTERIC COATED) 81 mg EC tablet Take 81 mg by mouth once daily. lisinopril (ZESTRIL, PRINIVIL) 20 mg tablet Take 1 tablet by mouth once daily. metFORMIN (GLUCOPHAGE) 500 mg tablet Take 1 tablet by mouth twice daily with meals. . atorvastatin (LIPITOR) 20 mg tablet Take 1 tablet by mouth daily at bedtime. For cholesterol. Blood Pressure Cuff - Home Use BLOOD PRESSURE CUFF FOR HOME USE. DX: LABILE BLOOD PRESSURE blood sugar diagnostic (BLOOD GLUCOSE TEST) test strip Test blood sugar(s) 1-2 times daily. Dx: Type 2 DM - Uncontrolled E11.65 Insulin: No Lancets lancets Test blood sugar(s) 1-2 times daily. Dx: Type 2 DM - Uncontrolled E11.65 Insulin: No diclofenac (VOLTAREN) 1 % topical gel Apply 2 g to affected area four times daily. (Patient not taking: Reported on 12/28/2021) No current facility-administered medications for this visit. ALLERGIES No Known Allergies PAST SURGICAL HISTORY Procedure Laterality Date TONSILLECTOMY HX childhood VASECTOMY UNI/BI SPX W/POSTOP SEMEN EXAMS 1977 FAMILY HISTORY Problem Relation Age of Onset No Known Problems Daughter No Known Problems Son Social History Tobacco Use Smoking status: Former Smokeless tobacco: Never Tobacco comments: teenager, less than 1 year Vaping Use Vaping Use: Never used Substance Use Topics Alcohol use: Not Currently Drug use: Not Currently REVIEW OF SYSTEMS GENERAL: Negative for Malaise, significant weight loss, fever RESPIRATORY: Negative for cough, wheezing and shortness of breath CARDIOVASCULAR: Negative for chest pain, leg swelling and palpitations GI: Negative for abdominal discomfort, blood in stools or black stools and change in bowel habits : Negative for dysuria, frequency and incontinence MUSCULOSKELETAL: Negative for joint pain or swelling, back pain, and muscle pain. SKIN: Negative for lesions, rash, and itching. HEMATOLOGY/LYMPHOLOGY Negative for prolonged bleeding, bruising easily, and swollen nodes. ENDOCRINE: Negative for cold or heat intolerance, polyuria, polydipsia and goiter. NEURO: negative Physical Exam: Constitutional: Pt is a well developed 66 year old male who is alert, oriented and cooperative Eyes: Following during examination. No redness or drainage. Respiratory: RR normal and nonlabored. Even breathing. No evidence of distress or shortness of breath. Psychology: Patient is engaged during conversation. Normal affect and mood. Does not appear depressed or anxious during encounter. Vascular: Dorsalis pedis and posterior tibial pulses palpable as b/l Capillary Fill time < 5 seconds to digits 1-5 b/l Skin temperature warm to warm proximal to distal b/l Hair growth present to digits Temperature of b/l ankle: 91 degrees Temperature of b/l foot: 90 degrees Right foot and ankle is visibly swollen Neurological: absent light touch/epicritic sensation Vibratory sensation absent b/l decreased protective sensation + significant neurological deficits Dermatological: Nails 1-5 b/l appear normal. Webspaces clean and dry 1-4 b/l. Skin appears well hydrated and supple. good color, texture, turgor. No open lesions present. Callus to b/l 1st metatarsal Musculoskeletal/Orthopaedic: Patient has no pain to palpation of right ankle Foot type is pronated structurally AJ ROM is decrea (more content not included)... [facility] 12-28-2021 Note HNO ID: [id number] Author: Jennie Rehman RN Service: ? Author Type: Registered Nurse Type: Progress Notes Filed: 12/28/2021 10:01 AM Note Text: Patient presents with: Right Ankle - Follow Up, Established Patient, Ankle Pain Patient had MRI on 12/11/2021 that showed possible tear of peroneus brevis or right ankle. Patient denies pain, states some swelling. [facility] 12-28-2021 History of Presen t illness Narrative Radiology Service Progress Note PATIENT NAME: Guilherme Saab DATE OF SERVICE: December 28, 2021 TIME: 10:20 AM PATIENT IDENTITY VERIFICATION COMPLETED USING TWO (2) IDENTIFIERS: Name and Date of confirmed by patient verbally. FALL SCREENING: Has the patient had 2 falls in the last year or 1 fall with injury or currently using an Ambulatory Assistive Device (Walker, Cane, Wheelchair, Crutches, etc.)? No PATIENT GENDER DATA: Male PATIENT RELEVANT IMPLANT DATA REVIEWED: Not Applicable RADIOLOGY DEPARTMENT: General X-ray: Exam(s) Completed: Lower Extremity X-Ray(s): Ankle, Bilateral and Wt. Bearing and Feet, Bilateral and Wt. Bearing PERIPHERAL IV DATA: Not applicable SIGNED BY: RT Kelly(R) December 28, 2021 10:20 AM documented in this encounter [facility] 12-28-2021 Instructions Jere Pina - 12/28/2021 9:54 AM EDT Recommend boot immobilization. Wear during the day. Can remove to shower and drive F/u in 2 weeks Will order afo from [facility] If you experience and calf related pain in boot, present to ED documented in this encounter [facility] 12-28-2021 History of Presen t illness Narrative Consultation requested by Dr. Nunes for an opinion regarding right ankle swelling. My final recommendations will be communicated back to the requesting physician by way of shared Medical record or letter to requesting physician via US mail. Initial Podiatric Office Visit: Chief Complaint: This 66 year old male who presents with chief complaint:right ankle swelling HPI Patient presents to clinic with complaint of right ankle swelling Swelling has been present since Middle of August. He states her first noticed the swelling after he was on a bicycycle ride. He noticed the right ankle was stiff. He contacted his pcp. Xrays were ordered and he was told he had severe arthritis. He was given topical pain cream which did not help with the swelling. He had follow-up with his pcp and an MRI was ordered. Mri does confirm peroneal tendon tear. Patient has no pain. He only complains of stiffness and swelling. Patient is diabetic. Patient had a1c in September that was 6.8. Patient does not smoke He swims and rides a recumbant bicycle. PAIN EVALUATION No data found in the last 1 encounters. Hemoglobin A1C (%) Date Value 10/01/2021 6.8 04/08/2021 6.8 04/01/2020 7.4 10/18/2019 6.9 07/12/2019 7.0 04/13/2019 7.0 PCP: Mary Diez MD PAST MEDICAL HISTORY Diagnosis Date Diabetes mellitus type II (HCC) Obesity (BMI 30.0-34.9) Current Outpatient Medications Medication Sig aspirin, enteric coated (ASPIRIN, ENTERIC COATED) 81 mg EC tablet Take 81 mg by mouth once daily. lisinopril (ZESTRIL, PRINIVIL) 20 mg tablet Take 1 tablet by mouth once daily. metFORMIN (GLUCOPHAGE) 500 mg tablet Take 1 tablet by mouth twice daily with meals. . atorvastatin (LIPITOR) 20 mg tablet Take 1 tablet by mouth daily at bedtime. For cholesterol. Blood Pressure Cuff - Home Use BLOOD PRESSURE CUFF FOR HOME USE. DX: LABILE BLOOD PRESSURE blood sugar diagnostic (BLOOD GLUCOSE TEST) test strip Test blood sugar(s) 1-2 times daily. Dx: Type 2 DM - Uncontrolled E11.65 Insulin: No Lancets lancets Test blood sugar(s) 1-2 times daily. Dx: Type 2 DM - Uncontrolled E11.65 Insulin: No diclofenac (VOLTAREN) 1 % topical gel Apply 2 g to affected area four times daily. (Patient not taking: Reported on 12/28/2021) No current facility-administered medications for this visit. ALLERGIES No Known Allergies PAST SURGICAL HISTORY Procedure Laterality Date TONSILLECTOMY HX childhood VASECTOMY UNI/BI SPX W/POSTOP SEMEN EXAMS 1977 FAMILY HISTORY Problem Relation Age of Onset No Known Problems Daughter No Known Problems Son Social History Tobacco Use Smoking status: Former Smokeless tobacco: Never Tobacco comments: teenager, less than 1 year Vaping Use Vaping Use: Never used Substance Use Topics Alcohol use: Not Currently Drug use: Not Currently REVIEW OF SYSTEMS GENERAL: Negative for Malaise, significant weight loss, fever RESPIRATORY: Negative for cough, wheezing and shortness of breath CARDIOVASCULAR: Negative for chest pain, leg swelling and palpitations GI: Negative for abdominal discomfort, blood in stools or black stools and change in bowel habits : Negative for dysuria, frequency and incontinence MUSCULOSKELETAL: Negative for joint pain or swelling, back pain, and muscle pain. SKIN: Negative for lesions, rash, and itching. HEMATOLOGY/LYMPHOLOGY Negative for prolonged bleeding, bruising easily, and swollen nodes. ENDOCRINE: Negative for cold or heat intolerance, polyuria, polydipsia and goiter. NEURO: negative Physical Exam: Constitutional: Pt is a well developed 66 year old male who is alert, oriented and cooperative Eyes: Following during examination. No redness or drainage. Respiratory: RR normal and nonlabored. Even breathing. No evidence of distress or shortness of breath. Psychology: Patient is engaged during conversation. Normal affect and mood. Does not appear depressed or anxious during encounter. Vascular: Dorsalis pedis and posterior tibial pulses palpable as b/l Capillary Fill time < 5 seconds to digits 1-5 b/l Skin temperature warm to warm proximal to distal b/l Hair growth present to digits Temperature of b/l ankle: 91 degrees Temperature of b/l foot: 90 degrees Right foot and ankle is visibly swollen Neurological: absent light touch/epicritic sensation Vibratory sensation absent b/l decreased protective sensation + significant neurological deficits Dermatological: Nails 1-5 b/l appear normal. Webspaces clean and dry 1-4 b/l. Skin appears well hydrated and supple. good color, texture, turgor. No open lesions present. Callus to b/l 1st metatarsal Musculoskeletal/Orthopaedic: Patient has no pain to palpation of right ankle Foot type is pronated structurally AJ ROM is decreased with knee extended and flexed 1st MPJ is decreased when loaded and no pain or crepitus are noted with ROM. MTJ, STJ are full and free of pain and crepitus. +5/5 muscle strength dorsiflexion, plantarflexion, inversion, eversion b/l Radiographs: 3 views right ankle reviewed: I have personally reviewed and interpreted these XR myself: severe arthritis is present to right ankle joint with pes planus MRI reviewed: + tear of peroneal brevis. Severe arthritis is noted in right ankle joint. + ganglion present ASSESSMENT: (M19.079) Arthritis of ankle (primary encounter diagnosis) (M25.571) Acute right ankle rory (S86.311A) Tear of peroneal tendon, right, initial encounter (M76.821) Posterior tibial tendinitis of right lower extremity PLAN: 1. History and physical examination performed. 2. XR reviewed with patient and interpreted today 3. Discussed swelling in right foot and ankle. On exam, he is visibly swollen. The temperature of right foot and ankle is 90 and 91 degrees respectively but equal to left. I do feel the swelling of ankle is from the arthritis present and subsequent tearing of peroneal brevis. However, in a patient with diabetes and neuropathy, I am concerned for early charcot and for this reason, I am going to place patient in a boot and repeat xrays of foot and ankle 4. F/u in 2 weeks. If no change, can possibly discuss return to shoe with inserts 5. buttermaker care was discussed for arthritis of ankle and peroneal tendon. Discussed surgical options vs referral for afo. Afo was ordered 6. If patient has interest in surgery of right ankle, would make referral to foot and ankle ortho. 7. F/u in 2 weeks 8. Callus reduced to b/l feet with dremmel. In order to perform a complete physical exam, limited shaving of callus area was performed. This incidental service is integral to the evaluation and management visit in order to appropriately manage and treat the patient (for their complaint or for this visit). Jere Pina DPM Podiatry [address] [facility] [address] Dept: [phone] Dept Patient presents with: Right Ankle - Follow Up, Established Patient, Ankle Pain Patient had MRI on 12/11/2021 that showed possible tear of peroneus brevis or right ankle. Patient denies pain, states some swelling. documented in this encounter [facility] 12-16-2021 Miscellaneous Notes Pt called and is notified of providers results and instructions. Pt voices understanding. Pt was put through to scheduling to set up Podiatry appointment. Jennie Landrum, RN TC to pt, left message to return call to office. Bennie Sher LPN Please call patient and let him know that his MRI did show a possible tear of the peroneus brevis. This is not urgent, but I would recommend an podiatry consult to see treatment options if pt agreeable. Consult placed. Thank you, Edyta Nunes APRN.SENIOR [employer] DEVELOPER documented in this encounter [facility] 12-11-2021 Note HNO ID: [id number] Author: RT Navi(Krys) Service: ? Author Type: Technologist Type: Progress Notes Filed: 12/11/2021 9:48 AM Note Text: Radiology Service Progress Note PATIENT NAME: Guilherme Saab DATE OF SERVICE: December 11, 2021 TIME: 9:46 AM PATIENT IDENTITY VERIFICATION COMPLETED USING TWO (2) IDENTIFIERS: Name and Date of confirmed by patient verbally. FALL SCREENING: Has the patient had 2 falls in the last year or 1 fall with injury or currently using an Ambulatory Assistive Device (Walker, Cane, Wheelchair, Crutches, etc.)? No PATIENT GENDER DATA: Male PATIENT RELEVANT IMPLANT DATA REVIEWED: Yes RADIOLOGY DEPARTMENT: MR; Exam(s) Completed: Lower MSK: Ankle/Hind Foot, right PERIPHERAL IV DATA: Not applicable SIGNED BY: RT Navi(R) December 11, 2021 9:46 AM [facility] 12-11-2021 History of Presen t illness Narrative Radiology Service Progress Note PATIENT NAME: Guilherme Saab DATE OF SERVICE: December 11, 2021 TIME: 9:46 AM PATIENT IDENTITY VERIFICATION COMPLETED USING TWO (2) IDENTIFIERS: Name and Date of confirmed by patient verbally. FALL SCREENING: Has the patient had 2 falls in the last year or 1 fall with injury or currently using an Ambulatory Assistive Device (Walker, Cane, Wheelchair, Crutches, etc.)? No PATIENT GENDER DATA: Male PATIENT RELEVANT IMPLANT DATA REVIEWED: Yes RADIOLOGY DEPARTMENT: MR; Exam(s) Completed: Lower MSK: Ankle/Hind Foot, right PERIPHERAL IV DATA: Not applicable SIGNED BY: RT Navi(R) December 11, 2021 9:46 AM documented in this encounter [facility] 12-03-2021 Note HNO ID: [id number] Author: Jennifer Keane LPN Service: ? Author Type: ? Type: Progress Notes Filed: 12/03/2021 12:54 PM Note Text: Manual Readin/71 Pulse: 65 BP Adams average: 138/80 P: 57 Repeat BP Check: 150/83 P58 #1 132/80 P56 #2 133/79 P58 #3 138/77 P57 #4 136/81 P56 #5 137/79 P56 #6 Reason for blood pressure check - Last BP elevated and Medication adjustment Patient is: Taking medication as prescribed Yes Took medication today Yes If no, date medication last taken N/A Experiencing side effects No BP continued to be elevated at nurse visit 11/06/21. Lisinopril was increased to 20mg daily. Tolerating medication change well. Denies any chest pain, shortness of breath, dizziness, or headaches. Daily caffeine use. Past personal history of tobacco use; no current exposure. Alert and oriented. Pt has been identified by name and birthdate: Yes Allergies reviewed: Yes Latex allergy: no. Medication - prescribed and OTC reviewed and updated: Yes Do you need any prescription refills prior to your next visit: No Health Maintenance: Reviewed and not up to date and provider notified Patient advised that he would be contacted after review by Dr mining detail draftsperson. Jennifer Keane LPN [facility] 12-03-2021 Miscellaneous Notes Phoned patient and updated him that BP check with [place] nurse was reviewed and provider stated BP is ok. Patient voiced understanding. Repeat bp is ok. Manual Readin/71 Pulse: 65 BP Adams average: 138/80 P: 57 Repeat BP Check: 150/83 P58 #1 132/80 P56 #2 133/79 P58 #3 138/77 P57 #4 136/81 P56 #5 137/79 P56 #6 Reason for blood pressure check - Last BP elevated and Medication adjustment Patient is: Taking medication as prescribed Yes Took medication today Yes If no, date medication last taken N/A Experiencing side effects No BP continued to be elevated at nurse visit 11/06/21. Lisinopril was increased to 20mg daily. Tolerating medication change well. Denies any chest pain, shortness of breath, dizziness, or headaches. Daily caffeine use. Past personal history of tobacco use; no current exposure. Alert and oriented. Pt has been identified by name and birthdate: Yes Allergies reviewed: Yes Latex allergy: no. Medication - prescribed and OTC reviewed and updated: Yes Do you need any prescription refills prior to your next visit: No Health Maintenance: Reviewed and not up to date and provider notified Patient advised that he would be contacted after review by mining detail draftsperson. Jennifer Keane LPN documented in this encounter [facility] 12-03-2021 History of Presen t illness Narrative Manual Readin/71 Pulse: 65 BP Adams average: 138/80 P: 57 Repeat BP Check: 150/83 P58 #1 132/80 P56 #2 133/79 P58 #3 138/77 P57 #4 136/81 P56 #5 137/79 P56 #6 Reason for blood pressure check - Last BP elevated and Medication adjustment Patient is: Taking medication as prescribed Yes Took medication today Yes If no, date medication last taken N/A Experiencing side effects No BP continued to be elevated at nurse visit 11/06/21. Lisinopril was increased to 20mg daily. Tolerating medication change well. Denies any chest pain, shortness of breath, dizziness, or headaches. Daily caffeine use. Past personal history of tobacco use; no current exposure. Alert and oriented. Pt has been identified by name and birthdate: Yes Allergies reviewed: Yes Latex allergy: no. Medication - prescribed and OTC reviewed and updated: Yes Do you need any prescription refills prior to your next visit: No Health Maintenance: Reviewed and not up to date and provider notified Patient advised that he would be contacted after review by Dr mining detail draftsperson. Jennifer Keane LPN documented in this encounter [facility] 11-20-2021 Miscellaneous Notes Great. Please let patient know and assist in scheduling. Thank you, Edyta Nunes APRN.SENIOR [employer] DEVELOPER Alberto clarke stating that the MRI has been approved and authorization number is [id number]. documented in this encounter [facility] 11-20-2021 History of Presen t illness Narrative Chief Complaint Patient presents with: swelling un rt ankel: Rt ankle swelling , states no injury noted was seen for this before and was x-rayed HPI Guilherme Saab is a 66 year old male who presents here today for Above Complaints. Guilherme is an established patient of Dr. Diez. Guilherme is a new patient to me today. Concerns today.. Ankle swelling -- Seen in urgent care on 11/06 d/t acute R ankle pain x 2 weeks at that time. X-ray ankle -- Soft tissue swelling without definite radiographic evidence of acute osseous injury. Given Voltaren gel for area and provided with stretches. Expected overuse injury. Today... Reports symptoms remain the same. No decrease in swelling. Has rested ankle, has not rode bike since UC visit. Has tried to elevate leg, ice ankle, and use Voltaren gel and motrin prn. Denies any pain but reports ankle to be very stiff now and almost more swollen. Able to ambulate without difficulty. 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 Denies any know injury to ankle but does report riding bike 50 + miles a day prior to swelling. No interest in physical therapy. Pt is concerned about tendon tear. Past medical history, appointments, medications, allergies reviewed. Previous Medical History PAST MEDICAL HISTORY Diagnosis Date Diabetes mellitus type II (HCC) Obesity (BMI 30.0-34.9) Previous Surgical History PAST SURGICAL HISTORY Procedure Laterality Date TONSILLECTOMY HX childhood VASECTOMY UNI/BI SPX W/POSTOP SEMEN EXAMS 1977 Family History FAMILY HISTORY Problem Relation Age of Onset No Known Problems Daughter No Known Problems Son Patient Allergies ALLERGIES No Known Allergies Current Medications Current Outpatient Medications on File Prior to Visit Medication Sig lisinopril (ZESTRIL, PRINIVIL) 20 mg tablet Take 1 tablet by mouth once daily. diclofenac (VOLTAREN) 1 % topical gel Apply 2 g to affected area four times daily. metFORMIN (GLUCOPHAGE) 500 mg tablet Take 1 tablet by mouth twice daily with meals. . atorvastatin (LIPITOR) 20 mg tablet Take 1 tablet by mouth daily at bedtime. For cholesterol. Blood Pressure Cuff - Home Use BLOOD PRESSURE CUFF FOR HOME USE. DX: LABILE BLOOD PRESSURE blood sugar diagnostic (BLOOD GLUCOSE TEST) test strip Test blood sugar(s) 1-2 times daily. Dx: Type 2 DM - Uncontrolled E11.65 Insulin: No Lancets lancets Test blood sugar(s) 1-2 times daily. Dx: Type 2 DM - Uncontrolled E11.65 Insulin: No No current facility-administered medications on file prior to visit. Social History Social History Tobacco Use Smoking status: Former Smokeless tobacco: Never Tobacco comments: teenager, less than 1 year Substance Use Topics Alcohol use: Not Currently Drug use: Not Currently REVIEW OF SYSTEMS: as above Reviewed relevant PMHx, PSHx, Social Hx, current medications and allergies. Review of Symptoms REVIEW OF SYSTEMS See HPI. EXAM: BP 136/62 (BP Site: Left Arm, BP Position: Sitting, BP Cuff Size: Regular Adult) Pulse (!) 58 Resp 16 Wt 108.5 kg (239 lb 3.2 oz) BMI 31.78 kg/m General Appearance: Well appearing, alert, in no acute distress, well-hydrated, well nourished.. Skin: Skin color, texture, turgor normal, no suspicious rashes or lesions. Head: Normocephalic, no masses, lesions, tenderness or abnormalities. Extremities: No deformities, edema, skin discoloration, clubbing or cyanosis. Good capillary refill. . Musculoskeletal: Positive findings: joint location: on right ankle swelling and stiffness. Peripheral Pulses: Normal. Neurologic: Gait normal. Reflexes normal and symmetric. Sensation grossly intact.. Health Maintenance List ABDOMINAL AORTIC ANEURYSM SCREENING Never done ADVANCE DIRECTIVE DISCUSSION Never done COLORECTAL CANCER SCREENING due on 05/08/2021 COVID-19 VACCINE(4 - Booster for Moderna series) due on 07/31/2021 HIV SCREENING due on 04/10/2022 PNEUMOCOCCAL: 65+(1 - PCV) due on 04/10/2022 INFLUENZA(1) due on 11/26/2021 DILATED RETINAL EXAM due on 2022 HBA1C due on 04/03/2022 LDL CHOLESTEROL due on 04/08/2022 DIABETIC FOOT EXAM due on 04/10/2022 URINE ALBUMIN:CREATININE RATIO due on 10/01/2022 DEPRESSION SCREENING due on 10/06/2022 ANNUAL PCP TEAM CHRONIC DISEASE VISIT due on 10/07/2022 PROSTATE CANCER SCREENING DISCUSSION due on 09/26/2023 DTAP,TDAP,TD(2 - Td or Tdap) due on 09/24/2026 HEPATITIS C SCREENING Completed SHINGRIX VACCINE Completed ASSESSMENT/PLAN: 1. Acute right ankle pain - ICD9: 719.47, 338.19, ICD10: M25.571 Ankle sprain vs overuse injury vs tendon/ligament injury/tear. Discussed continuing to use Voltaren gel, gave naproxen 500 mg BID instead of motrin/ibuprofen. Continue to rest, elevate, and ice extremity. Discussed immobilizing with OTC compression brace or NICK wrap. Discussed PT - pt declined. Discussed MRI likely not covered without PT first, willing to order and see. Pt aware and agreeable. Understands if not covered he will continue stretches. - MRI ANKLE WO IVCON RT - NAPROXEN 500 MG TABLET RTO as needed. Prescription instructions reviewed with patient as applicable. Potential red flag symptoms discussed with the patient. Reviewed appropriate action plan to take if red flag symptoms occur. Patient agreeable to treatment plan. Edyta Nunes APRN.SENIOR [employer] DEVELOPER [address] [place] [address] documented in this encounter [facility] 11-17-2021 Miscellaneous Notes Reason for call: Patient calling with request for a follow up appointment in regards to ankle swelling. Patient denies any new or worsening symptoms of which a provider is not aware: Yes. Outcome: Patient conferenced to the appointment center for assistance with scheduling. documented in this encounter [facility] 11-09-2021 Miscellaneous Notes Please see triage TE 11/07. Patient still needs scheduled for BP f/u in 1 month. Patient not scheduled. Attempted to contact patient. Unable to reach left VM to call the office back. Will send [facility] message as well. Julieta Smith MA Called and left a voicemail for the Patient to call back and ask for a nurse to receive the providers message. Jennie Landrum RN BP remains elevated I would suggest increasing lisinopril to 20 mg daily Recheck BP in 1 month John Manuel MD Manual Readin/95 Pulse: 48 BP Adams average: 179/83 P: 48 Repeat BP Check: 177/80 P47 #1 180/91 P47 #2 172/80 P47 #3 181/80 P47 #4 175/82 P47 #5 190/83 P50 #6 Reason for blood pressure check - Last BP elevated and Medication adjustment Patient is: Taking medication as prescribed Yes Took medication today Yes If no, date medication last taken N/A Experiencing side effects No BP continued to be elevated at nurse visit 10/23/21. Lisinopril was increased to 10mg daily. Tolerating medication well. Denies any chest pain, shortness of breath, dizziness, or headaches. Daily caffeine use; none today. Past personal history of tobacco use; no current exposure. Alert and oriented. Pt has been identified by name and birthdate: Yes Allergies reviewed: Yes Latex allergy: no. Medication - prescribed and OTC reviewed and updated: Yes Do you need any prescription refills prior to your next visit: No Health Maintenance: Reviewed and not up to date and provider notified Patient advised that he would be contacted after review by Dr mining detail draftsperson. Jennifer Keane LPN documented in this encounter [facility] 11-07-2021 Miscellaneous Notes Patient calling with request for return call/Message from office: Patient called back and given message from office note dated 11-06-21. Pt verbalized understanding of message given. . Patient denies any new or worsening symptoms of which a provider is not aware: Yes. Message to increase Lisinopril to 20 mg daily and recheck BP in [address] John Manuel given to patient. documented in this encounter [facility] 11-06-2021 History of Presen t illness Narrative Manual Readin/95 Pulse: 48 BP Adams average: 179/83 P: 48 Repeat BP Check: 177/80 P47 #1 180/91 P47 #2 172/80 P47 #3 181/80 P47 #4 175/82 P47 #5 190/83 P50 #6 Reason for blood pressure check - Last BP elevated and Medication adjustment Patient is: Taking medication as prescribed Yes Took medication today Yes If no, date medication last taken N/A Experiencing side effects No BP continued to be elevated at nurse visit 10/23/21. Lisinopril was increased to 10mg daily. Tolerating medication well. Denies any chest pain, shortness of breath, dizziness, or headaches. Daily caffeine use; none today. Past personal history of tobacco use; no current exposure. Alert and oriented. Pt has been identified by name and birthdate: Yes Allergies reviewed: Yes Latex allergy: no. Medication - prescribed and OTC reviewed and updated: Yes Do you need any prescription refills prior to your next visit: No Health Maintenance: Reviewed and not up to date and provider notified Patient advised that he would be contacted after review by Dr mining detail draftsperson. Jennifer Keane LPN documented in this encounter [facility] 10-23-2021 Miscellaneous Notes Phoned patient and updated him with provider's response. Patient voiced understanding. I don't think this would drop him too low, but I would have him case picker the 20 mg pills and cut in half so he would take 10 mg. We can recheck in 2 weeks and increase to 20 mg if he BP is still high. Call to pt, scheduled 2 week NV. 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 Do you feel this will happen to him and can he start at a lower dosage? Advise. Keesha Lewis Ma BP remains high. Recommend increasing his lisinopril from 5 mg daily to 20 mg daily and rechecking BP at OK in 2 weeks. Call with side effects such as dry cough or lightheadedness/dizziness. Manual Readin/94 Pulse: 63 BP Adams average: 155/85 P: 63 Repeat BP Check: 170/83 P59 #1 174/95 P62 #2 153/83 P65 #3 138/79 P66 #4 147/87 P63 #5 147 P62 #6 Reason for blood pressure check - Last BP elevated Patient is: Taking medication as prescribed Yes Took medication today Yes If no, date medication last taken N/A Experiencing side effects No BP was elevated at last appt 10/07/21. No BP medication changes were made at that time. Taking all medications as prescribed. Denies any chest pain, shortness of breath, dizziness, or headaches. No tobacco use/exposure. Alert and oriented. Pt has been identified by name and birthdate: Yes Allergies reviewed: Yes Latex allergy: no. Medication - prescribed and OTC reviewed and updated: Yes Do you need any prescription refills prior to your next visit: No Health Maintenance: Reviewed and not up to date and provider notified Patient advised that he would be contacted after review by PCP. Jennifer Keane LPN documented in this encounter [facility] 10-23-2021 History of Presen t illness Narrative Manual Readin/94 Pulse: 63 BP Adams average: 155/85 P: 63 Repeat BP Check: 170/83 P59 #1 174/95 P62 #2 153/83 P65 #3 138/79 P66 #4 147/87 P63 #5 147 P62 #6 Reason for blood pressure check - Last BP elevated Patient is: Taking medication as prescribed Yes Took medication today Yes If no, date medication last taken N/A Experiencing side effects No BP was elevated at last appt 10/07/21. No BP medication changes were made at that time. Taking all medications as prescribed. Denies any chest pain, shortness of breath, dizziness, or headaches. No tobacco use/exposure. Alert and oriented. Pt has been identified by name and birthdate: Yes Allergies reviewed: Yes Latex allergy: no. Medication - prescribed and OTC reviewed and updated: Yes Do you need any prescription refills prior to your next visit: No Health Maintenance: Reviewed and not up to date and provider notified Patient advised that he would be contacted after review by PCP. Jennifer Keane LPN documented in this encounter [facility] 10-07-2021 History of Presen t illness Narrative 10/07/2021 Patient presents with: F/U 6 months SUBJECTIVE: This is a 66 year old that is here today for Above Complaints. Since last appointment has not had any ER visits or hospitalizations. DIABETES MELLITUS: Mr. Saab was last seen on 04/10/2021. Since our last visit he denies excessive thirst or increased frequency of urination, chest pain or dyspnea , numbness, tingling or pain in extremities, new or unusual visual symptoms, low sugar/hypoglycemic reactions, weight loss/gain, lightheadedness/dizziness and bowel changes/loose stools. Follows a diabetic diet most of the time. He is compliant with medication(s) and is tolerating med(s) without any side effects. He reports checking his glucose on a infrequent to not at all basis schedule. Patient's last HgA1C was Hemoglobin A1C (%) Date Value 10/01/2021 6.8 04/08/2021 6.8 04/01/2020 7.4 ) Last Ophthalmology exam was within the past 12 months HYPERLIPIDEMIA: Patient is taking medications: Yes. Patient is watching diet: Yes. Patient denies myalgias: Yes. Patient denies gi upset: Yes Exercises throughout the week. Rides recumbent bike ad recently did a 250 miles bike ride over a week BP w/Orthostatic Vitals Date and Time Orthostatic BP Orthostatic Pulse BP Pulse BP Position BP Site BP Cuff Size 10/07/21 1537 -- -- 160/83 62 -- -- -- 10/07/21 1452 -- -- 172/88 72 -- -- -- Peak Flow Date and Time PF Resp 10/07/21 145 -- 18 PAST MEDICAL HISTORY Diagnosis Date Diabetes mellitus type II (HCC) Obesity (BMI 30.0-34.9) ALLERGIES Patient has no known allergies. MEDICATIONS Current Outpatient Medications Medication Sig lisinopril (ZESTRIL, PRINIVIL) 5 mg tablet Take 1 tablet by mouth once daily. metFORMIN (GLUCOPHAGE) 500 mg tablet Take 1 tablet by mouth twice daily with meals. . atorvastatin (LIPITOR) 20 mg tablet Take 1 tablet by mouth daily at bedtime. For cholesterol. Blood Pressure Cuff - Home Use BLOOD PRESSURE CUFF FOR HOME USE. DX: LABILE BLOOD PRESSURE blood sugar diagnostic (BLOOD GLUCOSE TEST) test strip Test blood sugar(s) 1-2 times daily. Dx: Type 2 DM - Uncontrolled E11.65 Insulin: No Lancets lancets Test blood sugar(s) 1-2 times daily. Dx: Type 2 DM - Uncontrolled E11.65 Insulin: No No current facility-administered medications for this visit. Medications and allergies reviewed by this provider. SOCIAL HISTORY Social History Tobacco Use Smoking status: Former Smoker Smokeless tobacco: Never Used Tobacco comment: teenager, less than 1 year Substance Use Topics Alcohol use: Not Currently Drug use: Not Currently REVIEW OF SYSTEMS All other reviewed and negative other than HPI. OBJECTIVE: BP 160/83 Pulse 62 Temp 36.2 C (97.2 F) Resp 18 Wt 107 kg (236 lb) SpO2 96% BMI 31.35 kg/m . Vital signs reviewed by this provider. APPEARANCE Well appearing, alert, in no acute distress, well-hydrated, well nourished. EYES conjunctiva and sclera normal. HEART RRR with normal S1 and S2, no murmurs, no gallops, no JVD appreciated LUNG clear to auscultation. No wheezes, rhonchi, or rales EXTREMITIES Extremities normal, No deformities, No skin discoloration and No edema SKIN Skin color, texture, turgor normal, no suspicious rashes or lesions Component Latest Ref Rng & Units 05/07/2021 10/01/2021 Protein, Total 6.3 - 8.0 g/dL 7.5 Albumin 3.9 - 4.9 g/dL 4.2 Calcium 8.5 - 10.2 mg/dL 9.1 Bilirubin, Total 0.2 - 1.3 mg/dL 1.3 Alkaline Phosphatase 38 - 113 U/L 81 AST 14 - 40 U/L 17 ALT 10 - 54 U/L 18 Glucose 74 - 99 mg/dL 132 (H) BUN 9 - 24 mg/dL 27 (H) Creatinine 0.73 - 1.22 mg/dL 1.03 Sodium 136 - 144 mmol/L 138 Potassium 3.7 - 5.1 mmol/L 4.4 Chloride 97 - 105 mmol/L 101 CO2 22 - 30 mmol/L 26 Anion Gap 9 - 18 mmol/L 11 eGFR >=60 mL/min/1.73m 81 Creatinine, Ur Random (UCRR) 20.0 - 300.0 mg/dL 217.6 Albumin, Urine Random mg/L 45.7 Albumin/Creat Ratio <30 mg/g 21 Hemoglobin A1C 4.3 - 5.6 % 6.8 (H) Estimated Average Glucose mg/dL 148 Stool DNA Negative Negative Component Latest Ref Rng & Units 04/08/2021 Cholesterol, Total <200 mg/dL 110 Triglyceride <150 mg/dL 93 HDL Cholesterol >39 mg/dL 37 (L) LDL Cholesterol <100 mg/dL 54 Non HDL Cholesterol <130 mg/dL 73 Fasting Time hrs 12 VLDL Cholesterol <30 mg/dL 19 TC:HDL Ratio <5.10 2.97 LDL:HDL Ratio <2.54 1.46 ABDOMINAL AORTIC ANEURYSM SCREENING Never done ADVANCE DIRECTIVE DISCUSSION Never done COLORECTAL CANCER SCREENING due on 05/08/2021 SHINGRIX VACCINE(2 of 2) due on 06/05/2021 COVID-19 VACCINE(4 - Booster for Moderna series) due on 07/31/2021 HIV SCREENING due on 04/10/2022 PNEUMOCOCCAL: 65+(1 - PCV) due on 04/10/2022 INFLUENZA(1) due on 11/26/2021 DILATED RETINAL EXAM due on 2022 HBA1C due on 04/03/2022 LDL CHOLESTEROL due on 04/08/2022 DIABETIC FOOT EXAM due on 04/10/2022 URINE ALBUMIN:CREATININE RATIO due on 10/01/2022 DEPRESSION SCREENING due on 10/06/2022 ANNUAL PCP TEAM CHRONIC DISEASE VISIT due on 10/07/2022 PROSTATE CANCER SCREENING DISCUSSION due on 09/26/2023 DTAP,TDAP,TD(2 - Td or Tdap) due on 09/24/2026 HEPATITIS C SCREENING Completed ASSESSMENT/PLAN: 1. Type 2 diabetes mellitus without complication, with long-term current use of insulin (HCC) - ICD9: 250.00, V58.67, ICD10: E11.9, Z79.4 (primary diagnosis) Controlled. - Continue current medications - Blood glucose monitoring on a every other day schedule - Encouraged regular aerobic exercise and weight loss - Follow up in 6 months, sooner should any other issues arise. - BP goal of <130/80 - LDL goal of <100 - METFORMIN 500 MG TABLET 2. Encounter for immunization - ICD9: V03.89, ICD10: Z23 - ZOSTER VACC RECOMBINANT,IM 3. Hyperlipidemia, mixed - ICD9: 272.2, ICD10: E78.2 - good control - Continue current medication. - Encouraged following a low fat, low cholesterol diet. - Follow up in 6 months. - Encouraged following a low carbohydrate, healthy oil intake diet. 4. Blood pressure elevated without history of HTN - ICD9: 796.2, ICD10: R03.0 - patient believes liekly elevated duet to he works third shift and he has not slept today - Encouraged dietary sodium restriction/DASH diet - Recommended regular aerobic exercise. - Recommend home blood pressure monitoring, to bring results in on next visit - Recheck in 2 weeks, sooner if needed. - Goal of BP <130/80 Aracelis Antoine APRN.CNP Prescription instructions reviewed with patient as applicable. Patient advised if symptoms do not improve or if symptoms worsen sooner, to contact their primary care physician. Potential red flag symptoms discussed with the patient. Reviewed appropriate action plan to take if red flag symptoms occur. Patient agreeable to treatment plan. documented in this encounter [facility] 09-30-2021 Miscellaneous Notes Patient returned call and went over notes from Aracelis Antoine IOS SOFTWARE ENGINEER with understanding. He will walk in to get done tomorrow after he finishes working 3rd shift. Left message for patient to call office back Mayra Carreon Ma Orders for blood work placed. Please assist in scheduling lab appointment. Aracelis Antoine APRN.CNP Pt called to reschedule appointment as he is going out of town. Would like to know if there will be any lab work that may need to get done before or after the appointment. Pt can be reached at [phone]. documented in this encounter [facility] 09-24-2021 Miscellaneous Notes Patient last visit with PCP 04/10/21 Follow up appointment scheduled 10/09/21 Mayra Carreon Ma Patient has been identified by name and date of : Yes Pending Prescriptions Disp Refills LISINOPRIL 5 MG TABLET 90 tablet 3 Sig: Take 1 tablet by mouth once daily. SAMMI: No RX INSTRUCTIONS: Patient aware RX will be sent to pharmacy. No need to notify patient. Clary Ferrell documented in this encounter [facility] 07-21-2021 Miscellaneous Notes Last office visit: 04/10/21 F/u scheduled: 10/09/21 Shira Sanchez Ma Patient has been identified by name and date of : Yes Pending Prescriptions Disp Refills METFORMIN 500 MG TABLET 180 tablet 0 Sig: Take 1 tablet by mouth twice daily with meals. . SAMMI: No RX INSTRUCTIONS: Patient aware RX will be sent to pharmacy. No need to notify patient. Roma Pride Pss documented in this encounter [facility] 06-29-2021 Miscellaneous Notes Patient has been identified by name and date of : Yes Pending Prescriptions Disp Refills ATORVASTATIN 20 MG TABLET 90 tablet 0 Sig: Take 1 tablet by mouth daily at bedtime. For cholesterol. SAMMI: No RX INSTRUCTIONS: Patient aware RX will be sent to pharmacy. No need to notify patient. Dagmar Ramírez MA Robert: 03/2021 Nov: 09/2021 Last refill: 03/2021 90 tablets. Pharmacy verified in Epic Patient has been identified by name and date of : Yes Patient aware RX will be sent to pharmacy. No need to notify patient. Patient phones for refill(s): Pending Prescriptions Disp Refills ATORVASTATIN 20 MG TABLET 90 tablet 0 Sig: Take 1 tablet by mouth daily at bedtime. For cholesterol. SAMMI: No Date of last office visit : 04/10/2021 Date of next office visit : 10/09/2021 Last 2 Encounter Wt Readings: Date: Wt: 04/10/2021 106.6 kg (235 lb) 01/07/2021 103 kg (227 lb) Please advise. Audrey Hatch Pss documented in this encounter [facility] 06-23-2021 Miscellaneous Notes Patient has been identified by name and date of : Yes Pending Prescriptions Disp Refills LISINOPRIL 5 MG TABLET 90 tablet 0 Sig: Take 1 tablet by mouth once daily. SAMMI: No ROBERT 04/10/21 NOV 10/09/21 RX INSTRUCTIONS: Patient aware RX will be sent to pharmacy. No need to notify patient. Zulma Mae Pss documented in this encounter [facility] Diagnosis Type 2 diabetes mellitus without complication, with long-term current use of insulin ([facility])- Primary [facility] Diagnosis Type 2 diabetes mellitus without complication, with long-term current use of insulin ([facility])- Primary Encounter for immunization Need for other specified prophylactic vaccination against single bacterial disease Hyperlipidemia, mixed Mixed hyperlipidemia Blood pressure elevated without history of HTN Elevated blood pressure reading without diagnosis of hypertension documented in this encounter [facility] note* Diagnosis Blood pressure elevated without history of HTN- Primary Elevated blood pressure reading without diagnosis of hypertension [facility] Diagnosis Blood pressure elevated without history of HTN- Primary Elevated blood pressure reading without diagnosis of hypertension [facility] Diagnosis Acute right ankle pain- Primary [facility] Diagnosis Blood pressure elevated without history of HTN- Primary Elevated blood pressure reading without diagnosis of hypertension [facility]* Diagnosis Acute right ankle pain documented in this encounter [facility] note* Diagnosis Acute right ankle pain- Primary [facility]* Diagnosis Arthritis of ankle- Primary Unspecified arthropathy, ankle and foot Acute right ankle pain Tear of peroneal tendon, right, initial encounter Posterior tibial tendinitis of right lower extremity [facility]* Diagnosis Arthritis of ankle Unspecified arthropathy, ankle and foot [facility] Diagnosis Acute right ankle pain- Primary Arthritis of ankle Unspecified arthropathy, ankle and foot Tear of peroneal tendon, right, initial encounter Posterior tibial tendinitis of right lower extremity [facility]* Diagnosis Acute right ankle pain- Primary Arthritis of ankle Unspecified arthropathy, ankle and foot Tear of peroneal tendon, right, initial encounter Posterior tibial tendinitis of right lower extremity [facility]* Diagnosis Hyperlipidemia, mixed- Primary Mixed hyperlipidemia Type 2 diabetes mellitus without complication, with long-term current use of insulin (HCC) [facility]* Diagnosis Diabetes mellitus type II (HCC)- Primary Hyperlipidemia, mixed Mixed hyperlipidemia Hypertension, unspecified type [facility]* Diagnosis Localized swelling of lower extremity- Primary [facility]* Diagnosis Arthritis of ankle- Primary Right ankle pain Pain in joint, ankle and foot [facility] Diagnosis Arthritis of ankle- Primary documented in this encounter [facility] note* Diagnosis Annual physical exam- Primary Routine general medical examination at a health care facility Diabetes mellitus type II (HCC) Diabetic polyneuropathy associated with type 2 diabetes mellitus (HCC) Obesity (BMI 30.0-34.9) Obesity, unspecified Essential hypertension Unspecified essential hypertension Asymptomatic varicose veins Arthritis of right ankle Unspecified arthropathy, ankle and foot documented in this encounter [facility] note* Diagnosis Arthritis of ankle- Primary documented in this encounter [facility] note* Diagnosis Arthritis of ankle documented in this encounter [facility] note* Diagnosis Arthritis of ankle- Primary Primary osteoarthritis, unspecified ankle and foot documented in this encounter [facility] note* Diagnosis Arthritis of ankle- Primary documented in this encounter [facility] note* Diagnosis Arthritis of ankle- Primary documented in this encounter [facility] note* Diagnosis Arthritis of ankle- Primary documented in this encounter [facility] note* Diagnosis Arthritis of ankle- Primary documented in this encounter [facility] note* Diagnosis Arthritis of ankle documented in this encounter [facility] for referral (narrative)* Diagnostic Procedure Only (Routine) - Closed Specialty Diagnoses / Procedures Referred By Contac t Referred To Contact XR IMAGING Diagnoses Arthritis of ankle Procedures XR ANKLE GENERAL 3V AP/LAT/OBL BILATERAL RADEX ANKLE COMPLETE MINIMUM 3 VIEWS [address] [place] [address] Xr Imaging Referral ID Status Reason Start Date Expiration Date V isits Requested Visits Authorized [id number] Closed Auto-Generate d Referral 12/28/2021 01/27/2023 1 1 * Diagnostic Procedure Only (Routine) - Closed Specialty Diagnoses / Procedures Referred By Contac t Referred To Contact XR IMAGING Diagnoses Arthritis of ankle Procedures XR FOOT GENERAL 3V AP/LAT/OBL BILATERAL RADEX FOOT COMPLETE MINIMUM 3 VIEWS Jere Pina [address] [place] [address] Xr Imaging Referral ID Status Reason Start Date Expiration Date V isits Requested Visits Authorized [id number] Closed Auto-Generate d Referral 12/28/2021 01/27/2023 1 1 [facility] for referral (narrative)* Diagnostic Procedure Only (Routine) - Closed Specialty Diagnoses / Procedures Referred By Contac t Referred To Contact XR IMAGING Diagnoses Arthritis of ankle Procedures XR ANKLE GENERAL 3V AP/LAT/OBL BILATERAL RADEX ANKLE COMPLETE MINIMUM 3 VIEWS Jere Pina [address] [place] [address] Xr Imaging Referral ID Status Reason Start Date Expiration Date V isits Requested Visits Authorized [id number] Closed Auto-Generate d Referral 12/28/2021 01/27/2023 1 1 * Diagnostic Procedure Only (Routine) - Closed Specialty Diagnoses / Procedures Referred By Contac t Referred To Contact XR IMAGING Diagnoses Arthritis of ankle Procedures XR FOOT GENERAL 3V AP/LAT/OBL BILATERAL RADEX FOOT COMPLETE MINIMUM 3 VIEWS Jere Pina [address] [place] [address] Xr Imaging Referral ID Status Reason Start Date Expiration Date V isits Requested Visits Authorized [id number] Closed Auto-Generate d Referral 12/28/2021 01/27/2023 1 1 [facility] for referral (narrative)* Outpatient Procedure (Routine) - Pending Review Specialty Diagnoses / Procedures Referred By Contac t Referred To Contact [facility] Diagnoses Localized swelling of lower extremity Procedures [facility] NON-INVASIVE PHYSIOLOGIC STUDY EXTREMITY 3 Josephine Villanueva APRN.CNP [address] [place] [address] [facility] [address] [place] [id number] Referral ID Status Reason Start Date Expiration Date Visits Requested Visits Authorized [id number] Pending Review Auto-Generat ed Referral 07/29/2022 07/29/2023 1 1 [facility] for visit Narrative* Diagnostic Procedure Only (Routine) - Closed Specialty Diagnoses / Procedures Referred By Contac t Referred To Contact XR IMAGING Diagnoses Arthritis of ankle Procedures XR ANKLE GENERAL 3V AP/LAT/OBL BILATERAL RADEX ANKLE COMPLETE MINIMUM 3 VIEWS Testrake, Jere [address] [place] [address] Xr Imaging Referral ID Status Reason Start Date Expiration Date V isits Requested Visits Authorized [id number] Closed Auto-Generate d Referral 12/28/2021 01/27/2023 1 1 [facility] Reason for Referral Specialty Diagnoses / Procedures Referred By Contac t Referred To Contact MR IMAGING Diagnoses Acute right ankle pain Procedures MRI ANKLE WO IVCON RT MRI ANY JT LOWER EXTREM W/O CONTRAST MATRL Edyta Nunes, SAND SHOVELER.SENIOR COGNOS DEVELOPER [address] [place] [address] Mr Imaging Referral ID Status Reason Start Date Expiration Date Visits Requested Visits Authorized [id number] Authorized Auto-Generat ed Referral 11/20/2021 12/19/2021 1 1 Referral ID Status Reason Start Date Expiration Date V isits Requested Visits Authorized [id number] Closed Auto-Generate d Referral 11/20/2021 12/19/2021 1 1 Specialty Diagnoses / Procedures Referred By Contac t Referred To Contact Podiatry Diagnoses Acute right ankle pain Procedures CONSULT TO PODIATRY OFFICE/OUTPATIENT [facility] 60-74 MINUTES Edyta Nunes, SAND SHOVELER.SENIOR COGNOS DEVELOPER [address] [place] [address] Referral ID Status Reason Start Date Expiration Date Visits Requested Visits Authorized [id number] Authorized PCP Requested Referral 12/16/2021 12/16/2022 1 1 Specialty Diagnoses / Procedures Referred By Contac t Referred To Contact Mary Diez MD [address] [place] [address] Referral ID Status Reason Start Date Expiration Date Visits Re quested Visits Authorized [id number] Closed 1 1 Advance Directives No Advanced Directives Records FoundDocuments on File Type Date Recorded 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 Power of Cellular Phone Repairer 08/27/2022 2:55 PM Documents on File Type Date Recorded 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 Power of Cellular Phone Repairer 08/27/2022 2:55 PM Summary Purpose Family History No Family History Records FoundNo Family History Records Found Additional Source Comments Source Comments (unrecognize d section and content) In the event this informatio n is protected by the Federal Confidentiality of Alcohol and Drug Abuse Patient Records regulations: The Federal rules restrict any use of the information to criminally investigate or prosecute any alcohol or drug abuse patient.[facility] event this information is protected by the Federal Confidentiality of Alcohol and Drug Abuse Patient Records regulations: The Federal rules restrict any use of the information to criminally investigate or prosecute any alcohol or drug abuse patient.[facility] the event this information is protected by the Federal Confidentiality of Alcohol and Drug Abuse Patient Records regulations: The Federal rules restrict any use of the information to criminally investigate or prosecute any alcohol or drug abuse patient.[facility] the event this information is protected by the Federal Confidentiality of Alcohol and Drug Abuse Patient Records regulations: The Federal rules restrict any use of the information to criminally investigate or prosecute any alcohol or drug abuse patient.[facility] the event this information is protected by the Federal Confidentiality of Alcohol and Drug Abuse Patient Records regulations: The Federal rules restrict any use of the information to criminally investigate or prosecute any alcohol or drug abuse patient.[facility] event this information is protected by the Federal Confidentiality of Alcohol and Drug Abuse Patient Records regulations: The Federal rules restrict any use of the information to criminally investigate or prosecute any alcohol or drug abuse patient.[facility] HealthIn the event this information is protected by the Federal Confidentiality of Alcohol and Drug Abuse Patient Records regulations: The Federal rules restrict any use of the information to criminally investigate or prosecute any alcohol or drug abuse patient.[facility] HealthIn the event this information is protected by the Federal Confidentiality of Alcohol and Drug Abuse Patient Records regulations: The Federal rules restrict any use of the information to criminally investigate or prosecute any alcohol or drug abuse patient.[facility] HealthIn the event this information is protected by the Federal Confidentiality of Alcohol and Drug Abuse Patient Records regulations: The Federal rules restrict any use of the information to criminally investigate or prosecute any alcohol or drug abuse patient.[facility] HealthIn the event this information is protected by the Federal Confidentiality of Alcohol and Drug Abuse Patient Records regulations: The Federal rules restrict any use of the information to criminally investigate or prosecute any alcohol or drug abuse patient.[facility] HealthIn the event this information is protected by the Federal Confidentiality of Alcohol and Drug Abuse Patient Records regulations: The Federal rules restrict any use of the information to criminally investigate or prosecute any alcohol or drug abuse patient.[facility] HealthIn the event this information is protected by the Federal Confidentiality of Alcohol and Drug Abuse Patient Records regulations: The Federal rules restrict any use of the information to criminally investigate or prosecute any alcohol or drug abuse patient.[facility] HealthIn the event this information is protected by the Federal Confidentiality of Alcohol and Drug Abuse Patient Records regulations: The Federal rules restrict any use of the information to criminally investigate or prosecute any alcohol or drug abuse patient.[facility] HealthIn the event this information is protected by the Federal Confidentiality of Alcohol and Drug Abuse Patient Records regulations: The Federal rules restrict any use of the information to criminally investigate or prosecute any alcohol or drug abuse patient.[facility] HealthIn the event this information is protected by the Federal Confidentiality of Alcohol and Drug Abuse Patient Records regulations: The Federal rules restrict any use of the information to criminally investigate or prosecute any alcohol or drug abuse patient.[facility] HealthIn the event this information is protected by the Federal Confidentiality of Alcohol and Drug Abuse Patient Records regulations: The Federal rules restrict any use of the information to criminally investigate or prosecute any alcohol or drug abuse patient.[facility] HealthIn the event this information is protected by the Federal Confidentiality of Alcohol and Drug Abuse Patient Records regulations: The Federal rules restrict any use of the information to criminally investigate or prosecute any alcohol or drug abuse patient.[facility] HealthIn the event this information is protected by the Federal Confidentiality of Alcohol and Drug Abuse Patient Records regulations: The Federal rules restrict any use of the information to criminally investigate or prosecute any alcohol or drug abuse patient.[facility] HealthIn the event this information is protected by the Federal Confidentiality of Alcohol and Drug Abuse Patient Records regulations: The Federal rules restrict any use of the information to criminally investigate or prosecute any alcohol or drug abuse patient.[facility] HealthIn the event this information is protected by the Federal Confidentiality of Alcohol and Drug Abuse Patient Records regulations: The Federal rules restrict any use of the information to criminally investigate or prosecute any alcohol or drug abuse patient.[facility] HealthIn the event this information is protected by the Federal Confidentiality of Alcohol and Drug Abuse Patient Records regulations: The Federal rules restrict any use of the information to criminally investigate or prosecute any alcohol or drug abuse patient.[facility] HealthIn the event this information is protected by the Federal Confidentiality of Alcohol and Drug Abuse Patient Records regulations: The Federal rules restrict any use of the information to criminally investigate or prosecute any alcohol or drug abuse patient.[facility] HealthIn the event this information is protected by the Federal Confidentiality of Alcohol and Drug Abuse Patient Records regulations: The Federal rules restrict any use of the information to criminally investigate or prosecute any alcohol or drug abuse patient.[facility] HealthIn the event this information is protected by the Federal Confidentiality of Alcohol and Drug Abuse Patient Records regulations: The Federal rules restrict any use of the information to criminally investigate or prosecute any alcohol or drug abuse patient.[facility] HealthIn the event this information is protected by the Federal Confidentiality of Alcohol and Drug Abuse Patient Records regulations: The Federal rules restrict any use of the information to criminally investigate or prosecute any alcohol or drug abuse patient.[facility] HealthIn the event this information is protected by the Federal Confidentiality of Alcohol and Drug Abuse Patient Records regulations: The Federal rules restrict any use of the information to criminally investigate or prosecute any alcohol or drug abuse patient.[facility] HealthIn the event this information is protected by the Federal Confidentiality of Alcohol and Drug Abuse Patient Records regulations: The Federal rules restrict any use of the information to criminally investigate or prosecute any alcohol or drug abuse patient.[facility] HealthIn the event this information is protected by the Federal Confidentiality of Alcohol and Drug Abuse Patient Records regulations: The Federal rules restrict any use of the information to criminally investigate or prosecute any alcohol or drug abuse patient.[facility] HealthIn the event this information is protected by the Federal Confidentiality of Alcohol and Drug Abuse Patient Records regulations: The Federal rules restrict any use of the information to criminally investigate or prosecute any alcohol or drug abuse patient.[facility] HealthIn the event this information is protected by the Federal Confidentiality of Alcohol and Drug Abuse Patient Records regulations: The Federal rules restrict any use of the information to criminally investigate or prosecute any alcohol or drug abuse patient.[facility] HealthIn the event this information is protected by the Federal Confidentiality of Alcohol and Drug Abuse Patient Records regulations: The Federal rules restrict any use of the information to criminally investigate or prosecute any alcohol or drug abuse patient.[facility] HealthIn the event this information is protected by the Federal Confidentiality of Alcohol and Drug Abuse Patient Records regulations: The Federal rules restrict any use of the information to criminally investigate or prosecute any alcohol or drug abuse patient.[facility] HealthIn the event this information is protected by the Federal Confidentiality of Alcohol and Drug Abuse Patient Records regulations: The Federal rules restrict any use of the information to criminally investigate or prosecute any alcohol or drug abuse patient.[facility] Reason for Visit (unrecogniz ed section and content) Reason Onset Date Comments Refill Request 07/21/2021 Reason Onset Date Comments Refill Request 06/29/2021 Reason Onset Date Comments Refill Request 09/24/2021 Reason Comments Appointment Reason Comments F/U 6 months Reason Comments Blood Pressure Check Reason Comments LMTCB Reason Comments Follow Up Reason Comments swelling un rt ankel Rt ankle swelling , states no injury noted was seen for this before and was x-rayed Specialty Diagnoses / Procedures Referred By Contac t Referred To Contact MR IMAGING Diagnoses Acute right ankle pain Procedures MRI ANKLE WO IVCON RT MRI ANY JT LOWER EXTREM W/O CONTRAST Edyta Joseph, SAND SHOVELER.SENIOR [employer] DEVELOPER [address] [place] [address] Mr Imaging Referral ID Status Reason Start Date Expiration Date V isits Requested Visits Authorized [id number] Closed Auto-Generate d Referral 11/20/2021 12/19/2021 1 1 Reason Comments Results Appointment Reason Comments Follow Up Established Patient Ankle Pain Specialty Diagnoses / Procedures Referred By Sandra t Referred To Contact Podiatry Diagnoses Acute right ankle pain Procedures CONSULT TO PODIATRY OFFICE/OUTPATIENT NEW HIGH MDM 60-74 MINUTES Edyta Nunes APRN.CNP [address] [place] [address] Referral ID Status Reason Start Date Expiration Date V isits Requested Visits Authorized [id number] Closed PCP Requested Referral 12/16/2021 12/16/2022 1 1 Reason Comments Patient Question Reason Comments Established Patient Follow Up Pain Reason Comments Results Reason Onset Date Comments Refill Request 03/24/2022 Reason Onset Date Comments Refill Request 04/20/2022 Reason Comments Recheck Reason Comments Refill Request Reason Onset Date Comments Refill Request 06/28/2022 Reason Comments Edema Reason Comments New Patient Right ankle pain Specialty Diagnoses / Procedures Referred By Sandra ryan Referred To Contact Diagnoses right ankle pain Procedures ND OFFICE/OUTPATIENT NEW MODERATE MDM 45-59 MINUTES Chely Acevedo [address] [facility] [place] [address] Devon Maki MD [address] [employer] [address] [place] [address] Referral ID Status Reason Start Date Expiration Date Visits Re quested Visits Authorized [id number] Closed 08/02/2022 08/02/2023 1 1 Reason Onset Date Comments Appointment 11/17/2022 Reason Onset Date Comments Refill Request 11/17/2022 Reason Comments Physical Reason Comments Follow-up 3 mth FU for Right a nkle pain - concern for Charcot Specialty Diagnoses / Procedures Referred By Sandra ryan Referred To Contact Diagnoses Primary osteoarthritis, unspecified ankle and foot Primary osteoarthritis, unspecified ankle and foot [M19.079] Procedures ND ARTHRODESIS ANKLE OPEN ND ARTHRODESIS SUBTALAR RIGHT OPEN ANKLE FUSION, SUBTALAR JOINT FUSION ARTHRODESIS FOOT SUBTALAR Devon Maki MD [address] [employer] [address] [place] [address] [facility] [address] [place] [address] Referral ID Status Reason Start Date Expiration Date Visits Re quested Visits Authorized [id number] 1 1 Reason Comments Post-op R ankle and subtalar fusion Reason Onset Date Comments Other 02/10/2023 Surgery appeal Reason Comments Post-op R ankle and subtalar joint fusion Care Teams (unrecognized sec tion and content) Home Health Aid Relationship Specialty Start Date End Date Mary Diez MD [address] [place] [address] PCP - General Family Practice 01/07/21 Home Health Aid Relationship Specialty Start Date End Date Mary Diez MD [address] [place] [address] PCP - General Family Practice 01/07/21 Home Health Aid Relationship Specialty Start Date End Date Mary Diez MD [address] [place] [address] PCP - General Family Practice 01/07/21 Home Health Aid Relationship Specialty Start Date End Date Mary Diez MD [address] [facility] [place] [address] PCP - General Family Practice 01/07/21 Home Health Aid Relationship Specialty Start Date End Date Mary Diez MD [address] [facility] [place] [address] PCP - General Family Practice 01/07/21 Home Health Aid Relationship Specialty Start Date End Date Mary Diez MD [address] [facility] [place] [address] PCP - General Family Practice 01/07/21 Home Health Aid Relationship Specialty Start Date End Date Mary Diez MD [address] [place] [address] PCP - General Family Practice 01/07/21 Home Health Aid Relationship Specialty Start Date End Date Mary Diez MD [address] [facility] [address] PCP - General Family Medicine 01/07/21 Home Health Aid Relationship Specialty Start Date End Date Mary Diez MD [address] [facility] [address] PCP - General Family Medicine 01/07/21 Home Health Aid Relationship Specialty Start Date End Date Mary Diez MD [address] [facility] [address] PCP - General Family Medicine 01/07/21 Home Health Aid Relationship Specialty Start Date End Date Mary Diez MD [address] [facility] [address] PCP - General Family Medicine 01/07/21 Home Health Aid Relationship Specialty Start Date End Date Mary Diez MD [address] [facility] [address] PCP - General Family Medicine 01/07/21 Home Health Aid Relationship Specialty Start Date End Date Mary Diez MD [address] [facility] [address] PCP - General Family Medicine 01/07/21 Home Health Aid Relationship Specialty Start Date End Date Mary Diez MD [address] [facility] [address] PCP - General Family Medicine 01/07/21 Home Health Aid Relationship Specialty Start Date End Date Mary Diez MD [address] [facility] [place] [address] PCP - General Family Medicine 01/07/21 Home Health Aid Relationship Specialty Start Date End Date Mary Diez MD [address] [facility] [place] [address] PCP - General Family Medicine 01/07/21 Home Health Aid Relationship Specialty Start Date End Date Mary Diez MD [address] [facility] [place] [address] PCP - General Family Medicine 01/07/21 Home Health Aid Relationship Specialty Start Date End Date Mary Diez MD [address] [place] [address] PCP - General Family Medicine 01/07/21 Home Health Aid Relationship Specialty Start Date End Date Mary Diez MD [facility] [place] [address] PCP - General Family Medicine 01/07/21 Home Health Aid Relationship Specialty Start Date End Date Mary Diez MD [facility] [place] [address] PCP - General Family Medicine 08/27/22 Home Health Aid Relationship Specialty Start Date End Date Mary Diez MD [address] [place] [address] PCP - General Family Medicine 08/27/22 Home Health Aid Relationship Specialty Start Date End Date Mary Diez MD [address] [place] [address] PCP - General Family Medicine 08/27/22 Home Health Aid Relationship Specialty Start Date End Date Mary Diez MD [address] [place] [id number] PCP - General Family Medicine 08/27/22 Home Health Aid Relationship Specialty Start Date End Date Mary Diez MD [address] [place] [id number] PCP - General Family Medicine 01/07/21 Home Health Aid Relationship Specialty Start Date End Date Mary Diez MD [address] [place] [id number] PCP - General Family Medicine 01/07/21 Home Health Aid Relationship Specialty Start Date End Date Mary Diez MD [address] [place] [id number] PCP - General Family Medicine 01/07/21 Home Health Aid Relationship Specialty Start Date End Date Mary Diez MD [address] [place] [id number] PCP - General Family Medicine 08/27/22 Home Health Aid Relationship Specialty Start Date End Date Mary Diez MD [address] [place] [id number] PCP - General Family Medicine 08/27/22 Home Health Aid Relationship Specialty Start Date End Date Mary Diez MD [address] [place] [id number] PCP - General Family Medicine 08/27/22 Home Health Aid Relationship Specialty Start Date End Date Mary Diez MD [address] [place] [address] PCP - General Family Medicine 08/27/22 Home Health Aid Relationship Specialty Start Date End Date Mary Diez MD [address] [place] [address] PCP - General Family Medicine 08/27/22 Home Health Aid Relationship Specialty Start Date End Date Mary Deiz MD [address] [place] [address] PCP - General Family Medicine 08/27/22 (unrecognized sect ion and content) No Status Records FoundNo Status Records Found INFORMATION SOURCE (unrecogn ized section and content) DATE CREATED AUTHOR AUTHOR'S ORGANIZ ATION 04/10/2023 [facility] Scheduled Active and Recently Administ ered Medications (unrecognized section and content) Continuous Medication Order 01/18/2023 01/19/2023 01/20/2023 lactated Ringer's infusion 50 mL/hr, IntraVENous, Continuous, Starting on Clara 01/20/23 at 0615, Preprocedure, Upon admission to sameday - please start iv if patient does not have iv access. Use 500ml NS for patients on dialysis. 0700 (New Bag - Prov ider: Quin Garcias RN)0806 (Continued by Anesthesia - Provider: FRAN Cano CRNA)0807 (Rate/Dose Change - Provider: FRAN Cano CRNA)1049 (New Bag - Provider: FRAN Cano CRNA)1106 (Stopped - Provider: FRAN Cano CRNA) lactated ringers infusion 125 mL/hr, IntraVENous, Continuous, Starting on Clara 01/20/23 at 1130, Recovery (only) 1130 (Canceled Entry - Provider: Automatic Discharge Provider - Comment: Automatically canceled at discontinue of medication order) PRN Medication Order 01/18/2023 01/19/2023 01/20/2023 diphenhydrAMINE (BENADryl) injection 12.5 mg 12.5 mg, IntraVENous, Once PRN, itching, Starting on Clara 01/20/23 at 1120, For 1 dose, Recovery (only) hydrALAZINE (Apresoline) injection 5 mg(Linked Group 1) 5 mg, IntraVENous, Every 15 min PRN, high blood pressure, for SBP greater than 160 mmHg for 2 consecutive measurements taken from different sites, Starting on Clara 01/20/23 at 1120, For 2 doses, Recovery (only), PRN for SBP > 160 for 2 consecutive measurements, and if one of the following conditions is met: 1) If IV labetolol is ineffective. 2) If HR is under 60. 3) If patient has heart block, COPD or asthma. If both labetalol and hydralazine ineffective, notify anesthesia provider. HYDROmorphone (Dilaudid) injection 0.25 mg 0.25 mg, IntraVENous, Every 5 min PRN, moderate pain (4-6), Starting on Clara 01/20/23 at 1120, For 4 doses, Recovery (only), Phase I and Phase II- Initial therapy for moderate pain (4-6). Restricted to a 90 minute time frame starting when the patient can verbally state their pain score. If after 2 doses the pain score does not decrease by more than one point, then call the provider. If oral meds are utilized, do not return to initial therapy medications. HYDROmorphone (Dilaudid) injection 0.5 mg 0.5 mg, IntraVENous, Every 5 min PRN, severe pain (7-10), Starting on Clara 01/20/23 at 1120, For 4 doses, Recovery (only), Phase I and Phase II- Initial therapy for moderate pain (4-6). Restricted to a 90 minute time frame starting when the patient can verbally state their pain score. If after 2 doses the pain score does not decrease by more than one point, then call the provider. If oral meds are utilized, do not return to initial therapy medications. labetalol (Normodyne,Trandate) injection 5 mg(Linked Group 1) 5 mg, IntraVENous, Every 10 min PRN, high blood pressure, for SBP greater than 160 mmHg for 2 consecutive measurements taken from different sites., Starting on Clara 01/20/23 at 1120, For 2 doses, Recovery (only), PRN for SBP >160 for 2 consecutive measurements, if HR is 60 or greater. If beta laith is contraindicated (HR less than 60, heart block, COPD or asthma) use hydralazine IV order. LORazepam (Ativan) injection 0.5 mg 0.5 mg, IntraVENous, Once PRN, for anxiety or muscle spasm., Starting on Clara 01/20/23 at 1120, For 1 dose, Recovery (only), For IV doses dilute dose with 1ml NS. metoclopramide (Reglan) injection 5 mg 5 mg, IntraVENous, Once PRN, nausea, Starting on Clara 01/20/23 at 1120, For 1 dose, Recovery (only), Secondary antiemetic therapy. Notify anesthesia provider before administration. midazolam (Versed) injection 2 mg 2 mg, IntraVENous, PRN, anxiety, administration per anesthesiologist direction. Up to two mg., Starting on Clara 01/20/23 at 0737, Preprocedure, Pull 2 mg vial of midazolam draw up for anesthesia block placement with administration per anesthesiologist direction. 0748 (Given - Provid er: Audrey Ignacio RN) ondansetron (Zofran) injection 4 mg 4 mg, IntraVENous, Once PRN, nausea, Starting on Clara 01/20/23 at 1120, For 1 dose, Recovery (only), Initial antiemetic therapy. oxyCODONE (Roxicodone) immediate release tablet 10 mg(Linked Group 2) 10 mg, Oral, PRN, severe pain (7-10), Starting on Clara 01/20/23 at 1120, For 1 dose, Recovery (only), PHASE II oxyCODONE (Roxicodone) immediate release tablet 5 mg(Linked Group 2) 5 mg, Oral, PRN, moderate pain (4-6), Starting on Clara 01/20/23 at 1120, For 1 dose, Recovery (only), PHASE II sodium chloride 0.9 % infusion 5-250 mL/hr, IntraVENous, PRN, if patient receiving piggyback infusions and maintenance fluids are not ordered OR KVO fluids to protect IV site / prevent frequent line interruptions / long duration, Starting on Clara 01/20/23 at 0606, Preprocedure, For piggyback infusion, administer at same rate as piggyback for a total of 25 mL. Enter 25 mL into dose field and piggyback rate into rate field of order. If piggyback is infusing at a rate less than 100 mL/hr, enter 25 mL into dose field and 100 mL/hr into rate field of order. For KVO fluids, enter rate of 20 mL/hr or less into rate field of order. sodium chloride 0.9 % infusion 5-250 mL/hr, IntraVENous, PRN, if patient receiving piggyback infusions and maintenance fluids are not ordered OR KVO fluids to protect IV site / prevent frequent line interruptions/ long duration, Starting on Clara 01/20/23 at 0606, Preprocedure, For piggyback infusion, administer at same rate as piggyback for a total of 25 mL. Enter 25 mL into dose field and piggyback rate into rate field of order. If piggyback is infusing at a rate less than 100 mL/hr, enter 25 mL into dose field and 100 mL/hr into rate field of order. For KVO fluids, enter rate of 20 mL/hr or less into rate field of order. sodium chloride 0.9 % irrigation solution (CANCELED) As needed, Starting on Clara 01/20/23 at 0849, Intraprocedure 0849 (Given - Provid er: Devon Maki MD - Comment: Right ankle) sodium chloride 0.9% (NS) flush 10 mL 10 mL, IntraVENous, PRN, line care, Starting on Clara 01/20/23 at 0606, Preprocedure, After every IV line use sodium chloride 0.9% (NS) flush 5-40 mL 5-40 mL, IntraVENous, PRN, line care, After every IV line use, Starting on Clara 01/20/23 at 0606, Preprocedure, For Line Patency: Peripheral IV = 5 mL; Midline or Central Line = 10 mL/lumen. If following IV push medication, administer flush at same rate as the IV push. Flush volume is determined by type of infusion therapy being given. For non-viscous solutions use: Peripheral IV = 5 mL Midline or Central Line = 10 mL/lumen For viscous solutions (i.e. blood components, parenteral nutrition, contrast media, or after obtaining blood sample) use: Peripheral IV = 10 mL Midline or Central Line = 20 mL/lumen Linked Groups Order Group 1: labetalol (Normodyne,Trandate) injection 5 mgJump to med 5 mg, IntraVENous, Every 10 min PRN, high blood pressure, for SBP greater than 160 mmHg for 2 consecutive measurements taken from different sites., Starting on Clara 01/20/23 at 1120, For 2 doses, Recovery (only), PRN for SBP >160 for 2 consecutive measurements, if HR is 60 or greater. If beta laith is contraindicated (HR less than 60, heart block, COPD or asthma) use hydralazine IV order. Or hydrALAZINE (Apresoline) injection 5 mgJump to med 5 mg, IntraVENous, Every 15 min PRN, high blood pressure, for SBP greater than 160 mmHg for 2 consecutive measurements taken from different sites, Starting on Clara 01/20/23 at 1120, For 2 doses, Recovery (only), PRN for SBP > 160 for 2 consecutive measurements, and if one of the following conditions is met: 1) If IV labetolol is ineffective. 2) If HR is under 60. 3) If patient has heart block, COPD or asthma. If both labetalol and hydralazine ineffective, notify anesthesia provider. Group 2: oxyCODONE (Roxicodone) immediate release tablet 5 mgJump to med 5 mg, Oral, PRN, moderate pain (4-6), Starting on Clara 01/20/23 at 1120, For 1 dose, Recovery (only), PHASE II Or oxyCODONE (Roxicodone) immediate release tablet 10 mgJump to med 10 mg, Oral, PRN, severe pain (7-10), Starting on Clara 01/20/23 at 1120, For 1 dose, Recovery (only), PHASE II FOR RECORDS PERTAINING TO PATIENTS WHO ARE OR HAVE BEEN ENROLLED IN A CHEMICAL DEPENDENCY/SUBSTANCEABUSE PROGRAM, SOME INFORMATION MAY BE OMITTED. This clinical summary was aggregated from multiple sources. Caution should be exercised in using it in the provision of clinical care. This summary normalizes information from multiple sources, and as a consequence, information in this document may materially change the coding, format and clinical context of patient data. In addition, data may be omitted in some cases. CLINICAL DECISIONS SHOULD BE BASED ON THE PRIMARY CLINICAL RECORDS. [employer] [facility]. provides no warranty or guarantee of the accuracy or completeness of information in this document.
[2023-05-29 19:05] VITALS: BP 171/100; PULSE 96; RESP 18; TEMP 36.2; O2SAT 98
== END 2023-05-29 19:05 | disposition home or self-care (01) ==
LOC: ED 18:45
PROVIDERS: Emergency Provider Emergency Medicine; PCP Family Medicine; Visit Provider Emergency Medicine
DX: S91.011A Laceration without foreign body, right ankle, initial encounter (principal); E11.9 Type 2 diabetes mellitus without complications; I10 Essential (primary) hypertension; E78.5 Hyperlipidemia, unspecified; V18.0XXA Pedal cycle driver injured in noncollision transport accident in nontraffic accident, initial encounter; Z23 Encounter for immunization
CPT/HCPCS: 13121; 90471; 99282

== ENCOUNTER → 2023-09-30 | Outpatient (CLI) | payer OTHER, SELFPAY ==
[2023-09-30 11:11] LABS: ALB/GLOB Ratio 0.8 RATIO (0.9-2.4); AST(SGOT) 13 U/L (15-37); Alanine Aminotransfer ALT/SGPT 15 U/L (16-61); Albumin, Serum 3.1 g/dL (3.2-5.0); Alkaline Phosphatase 126 U/L (45-117); Anion Gap 7 (5-15); BUN 21 mg/dL (7-18); BUN/Creat Ratio 20.8 RATIO (10-20); Calcium,Total 8.8 mg/dL (8.5-10.1); Chloride 107 mmol/L (98-107); Cholesterol 95 mg/dL (200); Creatinine, Serum 1.01 mg/dL (0.70-1.30); EST Glomerular Filtration Rate 78 mL/min (>60); Est Glom Filt Rate - Afr Amer 95 mL/min (>60); Globulin 4.1 g/dL (2.2-4.2); Glucose 136 mg/dL (74-106); High Density Lipoprotein 35 mg/dL; Potassium 4.3 mmol/L (3.5-5.1); Protein, Total 7.2 g/dL (6.4-8.2); Sodium Level 140 mmol/L (136-145); Triglycerides 96 mg/dL; Very Low Density Lipoprotein 19 mg/dL (5-40)
== END | disposition home or self-care (01) ==
LOC: MTLAB 08:19
PROVIDERS: PCP Family Medicine; Referring Provider Family Medicine; Visit Provider Family Medicine
DX: E11.9 Type 2 diabetes mellitus without complications (principal)
CPT/HCPCS: 36415; 80053; 80061

== ENCOUNTER → 2024-03-30 | Outpatient (CLI) | payer OTHER, SELFPAY ==
[2024-03-30 11:02] LABS: ALB/GLOB Ratio 0.8 RATIO (0.9-2.4); AST(SGOT) 17 U/L (15-37); Alanine Aminotransfer ALT/SGPT 17 U/L (16-61); Albumin, Serum 3.4 g/dL (3.2-5.0); Alkaline Phosphatase 118 U/L (45-117); Anion Gap 7 (5-15); BUN 27 mg/dL (7-18); BUN/Creat Ratio 22.7 RATIO (10-20); Calcium,Total 9.2 mg/dL (8.5-10.1); Chloride 105 mmol/L (98-107); Cholesterol 108 mg/dL (200); Creatinine, Serum 1.19 mg/dL (0.70-1.30); EST Glomerular Filtration Rate 65 mL/min (>60); Est Glom Filt Rate - Afr Amer 78 mL/min (>60); Globulin 4.3 g/dL (2.2-4.2); Glucose 142 mg/dL (74-106); High Density Lipoprotein 43 mg/dL; Potassium 4.4 mmol/L (3.5-5.1); Protein, Total 7.7 g/dL (6.4-8.2); Sodium Level 137 mmol/L (136-145); Triglycerides 81 mg/dL; Very Low Density Lipoprotein 16 mg/dL (5-40)
== END | disposition home or self-care (01) ==
LOC: MFPLAB 09:22
PROVIDERS: PCP Family Medicine; Referring Provider Family Medicine; Visit Provider Family Medicine
DX: E11.9 Type 2 diabetes mellitus without complications (principal)
CPT/HCPCS: 36415; 80053; 80061

== ENCOUNTER → 2024-06-28 | Outpatient (CLI) | payer OTHER, SELFPAY ==
[2024-06-28 12:00] LABS: ALB/GLOB Ratio 1.2 RATIO (0.9-2.4); AST(SGOT) 18 U/L (<=37); Alanine Aminotransfer ALT/SGPT 14 U/L (<=46); Albumin, Serum 4.1 g/dL (3.4-4.8); Alkaline Phosphatase 91 U/L (40-129); Anion Gap 13 (5-15); BUN 24 mg/dL (4-19); BUN/Creat Ratio 17.5 RATIO (10-20); Calcium,Total 9.6 mg/dL (7.6-11.0); Carbon Dioxide 24.3 mmol/L (21.0-32.0); Chloride 102 mmol/L (98-108); Creatinine, Serum 1.34 mg/dL (0.70-1.20); EST Glomerular Filtration Rate 58 (>60); Globulin 3.5 g/dL (2.2-4.2); Glucose 133 mg/dL (70-99); Potassium 4.2 mmol/L (3.3-5.1); Protein, Total 7.6 g/dL (5.9-8.4); Sodium Level 139 mmol/L (133-145); Total Bilirubin 1.12 mg/dL (0.00-1.30)
[2024-06-28 15:07] LABS: Microalbumin,Random Urine 29.5 mg/L (NO RANGE EST.); Microalbumin:Creatinine Ratio 225.2 mg/g CRE
[2024-06-28 16:14] LABS: Hemoglobin A1c 6.9 % (<=5.6)
== END | disposition home or self-care (01) ==
LOC: MFPLAB 09:15
PROVIDERS: PCP Family Medicine; Referring Provider Family Medicine; Visit Provider Family Medicine
DX: R17 Unspecified jaundice (principal); E11.9 Type 2 diabetes mellitus without complications
CPT/HCPCS: 36415; 80053; 82043; 82570; 83036

== ENCOUNTER 2024-07-10 14:45 | Emergency (ER) | payer OTHER, SELFPAY ==
[2024-07-10] VITALS (20 sets, daily range): BP systolic 114–154; BP diastolic 57–115; PULSE 48–250; RESP 13–26; TEMP 36.6–36.8; O2SAT 90–100; BMI 30.6
--- NOTE | 2024-07-10 14:49 | EKG12_ITS ---
Test Reason : Blood Pressure : */* mmHG Vent. Rate : 199 BPM Atrial Rate : * BPM P-R Int : * ms QRS Dur : 148 ms QT Int : 232 ms P-R-T Axes : * -52 135 degrees QTcB Int : 422 ms Critical Test Result: High HR , Arrhythmia Atrial fibrillation with rapid ventricular response Left axis deviation Left ventricular hypertrophy with QRS widening ( R in aVL , Ron product , Romhilt-Bautista ) Abnormal ECG Confirmed by Robson Camacho ([id number]), book editor LEONARDO SAUNDERS ([id number]) on 07/13/2024 7:01:55 AM Referred By: JONN Confirmed By: Robson Camacho
--- NOTE | 2024-07-10 14:50 | ED.VIS.CHEST ---
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 Since it was persistent, he came to the emergency department drove himself here. He states the pain is substernal dull radiates to his mid back no other symptoms such as dyspnea, syncope, diaphoresis, nausea or vomiting. No arm discomfort. [facility] Medical History (Updated 07/10/24 @ 16:[address] Robson Camacho MD) Hypertension Diabetes Medical History no medical history Home Medications ?Medication ?Instructions ?Recorded ?Last Taken ?Type atorvastatin 20 mg tablet 20 mg PO DAILY 07/27/22 07/10/24 History metformin 500 mg tablet 500 mg PO BID 07/27/22 07/10/24 History hydrochlorothiazide 25 mg tablet 25 mg PO DAILY 07/10/24 07/10/24 History Allergy/AdvReac Type Severity Reaction Status Date / Time onion Allergy Nausea/Vom/ Verified 07/10/24 14:48 Diarrhea Family History Other Arthritis Myocardial infarction Family History no significant family his Surgical History H/O ankle fusion Surgical History no surgical history Social History Smoking Status: Never smoker alcohol intake: never what type of physical activity do you participate in: bicycling [facility] ED Constitutional Constitutional ED: Denies chills or fever(s) Eyes Eyes: Denies change in vision or diplopia ENT ENT ED: Denies rhinorrhea or sore throat Cardiovascular Cardiovascular: Reports as per HPI, chest pain, lightheadedness, palpitations and racing heartbeat; Denies pedal edema or syncope Respiratory/Chest Respiratory/Chest: Denies cough or dyspnea Gastrointestinal Gastrointestinal: Denies abdominal pain, diarrhea, nausea or vomiting Genitourinary Genitourinary ED: Denies dysuria or hematuria Musculoskeletal Musculoskeletal: Denies back pain or neck pain Integumentary Denies abscess or rash Neurologic Neurologic: Denies headache(s), paresthesias or weakness Psychiatric Psychiatric: Denies anxiety or suicidal thoughts EXAM Physical Exam Const Vital Signs: 07/10/24 14:46 07/10/24 14:49 07/10/24 14:56 Temperature 98 F Temperature Source Oral Pulse Rate 250 H 198 H Pulse Rate [1 (Initial Baseline)] Respiratory Rate 26 H 13 Respiratory Rate [1 (Initial Baseline)] Blood Pressure 132/57 H 127/115 H Blood Pressure [1 (Initial Baseline)] Blood Pressure Mean 82 Baseline BP 127/115 Pulse Ox 98 94 95 Oxygen Delivery Method Room Air Nasal Cannula Nasal Cannula Oxygen Delivery Method [1 (Initial Baseline)] Oxygen Flow Rate (L/min) 2.5 2.5 Oxygen Flow Rate (L/min) [1 (Initial Baseline)] EtCo2 (Normal 35-45 , high quality CPR 10-20 & ROSC>/=40mmHg 38 EtCo2 (Normal 35-45 , high quality CPR 10-20 & ROSC>/=40mmHg [1 (Initial Baseline)] 07/10/24 14:56 07/10/24 14:56 07/10/24 15:19 Temperature Temperature Source Pulse Rate Pulse Rate [1 (Initial Baseline)] 198 H Respiratory Rate Respiratory Rate [1 (Initial Baseline)] 13 Blood Pressure Blood Pressure [1 (Initial Baseline)] 127/115 H Blood Pressure Mean Baseline BP Pulse Ox Oxygen Delivery Method Oxygen Delivery Method [1 (Initial Baseline)] Nasal Cannula Oxygen Flow Rate (L/min) Oxygen Flow Rate (L/min) [1 (Initial Baseline)] 2.5 EtCo2 (Normal 35-45 , high quality CPR 10-20 & ROSC>/=40mmHg 38 38 EtCo2 (Normal 35-45 , high quality CPR 10-20 & ROSC>/=40mmHg [1 (Initial Baseline)] 38 07/10/24 15:20 07/10/24 15:21 07/10/24 15:25 Temperature Temperature Source Pulse Rate 61 86 64 Pulse Rate [1 (Initial Baseline)] Respiratory Rate 14 15 14 Respiratory Rate [1 (Initial Baseline)] Blood Pressure 146/89 H 146/89 H 114/74 Blood Pressure [1 (Initial Baseline)] Blood Pressure Mean 108 Baseline BP Pulse Ox 92 91 90 Oxygen Delivery Method Nasal Cannula Nasal Cannula Nasal Cannula Oxygen Delivery Method [1 (Initial Baseline)] Oxygen Flow Rate (L/min) 2.5 4 2.5 Oxygen Flow Rate (L/min) [1 (Initial Baseline)] EtCo2 (Normal 35-45 , high quality CPR 10-20 & ROSC>/=40mmHg 38 37 EtCo2 (Normal 35-45 , high quality CPR 10-20 & ROSC>/=40mmHg [1 (Initial Baseline)] 07/10/24 15:28 07/10/24 15:38 07/10/24 16:00 Temperature Temperature Source Pulse Rate 64 65 56 L Pulse Rate [1 (Initial Baseline)] Respiratory Rate 15 16 16 Respiratory Rate [1 (Initial Baseline)] Blood Pressure 116/76 117/73 123/73 H Blood Pressure [1 (Initial Baseline)] Blood Pressure Mean 87 89 Baseline BP Pulse Ox 90 98 97 Oxygen Delivery Method Nasal Cannula Room Air Room Air Oxygen Delivery Method [1 (Initial Baseline)] Oxygen Flow Rate (L/min) 2.5 Oxygen Flow Rate (L/min) [1 (Initial Baseline)] EtCo2 (Normal 35-45 , high quality CPR 10-20 & ROSC>/=40mmHg 36 EtCo2 (Normal 35-45 , high quality CPR 10-20 & ROSC>/=40mmHg [1 (Initial Baseline)] 07/10/24 16:30 Temperature Temperature Source Pulse Rate 58 L Pulse Rate [1 (Initial Baseline)] Respiratory Rate 16 Respiratory Rate [1 (Initial Baseline)] Blood Pressure 124/77 H Blood Pressure [1 (Initial Baseline)] Blood Pressure Mean 92 Baseline BP Pulse Ox 97 Oxygen Delivery Method Room Air Oxygen Delivery Method [1 (Initial Baseline)] Oxygen Flow Rate (L/min) Oxygen Flow Rate (L/min) [1 (Initial Baseline)] EtCo2 (Normal 35-45 , high quality CPR 10-20 & ROSC>/=40mmHg EtCo2 (Normal 35-45 , high quality CPR 10-20 & ROSC>/=40mmHg [1 (Initial Baseline)] Positive well nourished and well developed Constitutional Narrative: Well-appearing in no distress conversive, pleasant General Appearance ED: well developed and NAD HEENT Reports moist mucous membranes normocephalic and atraumatic Eyes PERRL and EOMs intact bilaterally Neck full ROM and supple Resp normal respiratory effort and clear to auscultation bilaterally Cardio no murmurs Rate: tachycardic Rhythm: abnormal rhythm irregularly irregular Peripheral Pulses: pulses 2+ throughout GI non-tender and non-distended Auscultation: normoactive bowel sounds Palpation: soft Back/Spine no CVA tenderness General Back: other FROM Extremity normal to inspection General Extremety ED: Negative for edema, pulses abnormal or tenderness General Extremity: Negative for edema or pulses abnormal Neuro oriented x3, CN's II-XII intact bilaterally and no sensory deficits noted Sensorium / Orientation: awake and alert Motor Exam: strength 5/5 throughout Skin no rashes or lesions noted and no wounds Heart Score History: Highly Suspicious ECG: Nonspecific Repolarization Age: >/= 65 years Risk Factors: >/= 3 Risk Factors or History of CAD Troponin: >1 - <3 Normal Limit Score: 8 MDM MDM MDM Narrative Medical decision making narrative: Mild patient was put on the monitor and appears to be in an irregular wide-complex tachycardia around 200. It appears to be narrow complex at some point. Differential includes ventricular tachycardia, A-fib with RVR with an aberrancy, A-fib with Jamal phenomena. Unfortunately no prior EKGs available. Given his rate and the nature of the EKG, I think he should be cardioverted. He had a small amount to eat about 1.5 hours ago, so instead of moderate sedation we will do midazolam and fentanyl. 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 Discussed with cardiology Dr. Camacho. Patient recovered uneventfully, vital signs normalized, patient asymptomatic and remained without dysrhythmia. Concern is that the patient may need an ablation sooner than later for this although he is not in A-fib anymore. Labs noted, troponin nonspecifically elevated at 73 with a creatinine that is 1.67 a little higher than he is used to. Since we do not have EP cardiology inpatient at this time, he will need to be transferred for this. Discussed with Dr. Landry ED at [facility] via Dr. Camacho, who states that he would be able to take the patient for an ablation tomorrow and prefers that he be transferred. Patient is amenable to that. Discussed with the transfer center, states they will likely have a bed tonight so we will monitor the patient in the ED until then. Lab Data Attestation: I reviewed the patient's lab results. Labs: Laboratory Results - last 24 hr 07/10/24 14:47 WBC 14.9 H RBC 4.48 L Hgb 13.7 Hct 39.2 L MCV 87.5 MCH 30.6 MCHC 34.9 RDW Std Deviation 45.3 H RDW Coeff of David 14.1 Plt Count 212 MPV 10.6 Immature Gran % (Auto) 2.600 H Neut % (Auto) 72.7 H Lymph % (Auto) 17.7 L Sublette % (Auto) 6.6 Eos % (Auto) 0.1 Baso % (Auto) 0.3 Absolute Neuts (auto) 10.8 H Absolute Lymphs (auto) 2.63 Nucleated RBC % 0 Sodium 135 Potassium 4.6 Chloride 96 L Carbon Dioxide 21.7 Anion Gap 17 H BUN 56 H Creatinine 1.67 H Estim Creat Clear Calc 52.43 Est GFR (MDRD) Non-Af 44 L BUN/Creatinine Ratio 33.2 H Glucose 373 H Calcium 9.0 Troponin T High Sens 73 H* Radiography Diagnostic Testing: Clinical Impression(s) from Imaging Studies Chest X-Ray 07/10/24 15:40 IMPRESSION: 1. Slightly hypoinflated exam. Mild central vascular prominence without overt pulmonary edema. 2. Question a few small nodules up to 0.8 cm. Compare with any available outside imaging to evaluate stability, and if unavailable, recommend outpatient CT chest. 3. Additional description as above. Reading Location: [facility] Rhythm Strip Rhythm Strip: WCT Rate: 160 Ectopy: None EKG Initial EKG: Attestation: I personally reviewed and interpreted this EKG as follows: Interpretation: - (WCT at 200, irreg) Prior EKG tracings: not available for review Prior: No Prior Follow-up EKG: Attestation: I personally reviewed and interpreted this EKG as follows: Interpretation: Sinus Rhythm, No Acute Injury Pattern and - (preexcitation. PVC.) Management Discussion w/another healthcare provider: [facility] (cardiology emperatriz camacho) Procedures Procedural Sedation 1 (Initial Baseline): Consent Signed: Yes (Verbal consent obtained, signed by the patient as well) Any Problems With Anesthesia: No Sedation medication: Versed Dose: 3 Route: IV (Along with fentanyl 50 mcg) Total Moderate Sedation Units: 11 Maliampati Score: Class II ASA Classification: II Comment:: On monitor with prophylactic nasal cannula oxygenation and IV fluids, end-tidal CO2 monitoring, airway equipment at the bedside. Tolerated well with no complications. Other Procedures Procedure(s): Electrocardioversion: After sedating the patient as above successfully, I performed synchronized electrocardioversion with pads placed anterior-posteriorly, with 200 J biphasic energy, resulting in successful cardioversion. Repeat EKG shows narrow complex with preexcitation but sinus rhythm. Critical Care Time Critical Care Time: Yes Critical care time (excluding procedures): 30-74 minutes (37 min, not including procedure time), Including time spent:, Discussing w/Patient &/or Family/Form Block Maker, Discussing w/Consultants, Arranging Admission or Transfer and Performing Direct Patient Care at Bedside Discharge Plan Triage Chief Complaint: Chest Pain ED Provider: John Paul Conway Dx/Rx/DC Orders Clinical Impression: Atrial fibrillation with RVR, Epxcv-Kagnrklhw-Iqkeh (WPW) syndrome, Chest pain Prescriptions: No Action atorvastatin 20 mg tablet 20 mg PO DAILY Patient Comments: PT TAKES AT BEDTIME. metformin 500 mg tablet 500 mg PO BID Patient Comments: TAKE 1 TABLET BY MOUTH TWICE DAILY WITH MEALS hydrochlorothiazide 25 mg tablet 25 mg PO DAILY Primary Care Provider: Pro Hernandez Referrals: Pro Hernandez MD [Primary Care Provider] - Print Language: Telugu Disposition Disposition: Acute Care Hospital Discharge Location: [facility]
[2024-07-10] MEDS: Aspirin 81 MG TAB.CHEW 324 MG PO (15:02)
[2024-07-10] MEDS: fentaNYL 100 MCG/2 ML Ampul 50 MCG IV (15:09)
[2024-07-10] MEDS: Midazolam 2 MG/2 ML Syringe 3 MG IV (15:09)
--- NOTE | 2024-07-10 15:15 | EKG12_ITS ---
Test Reason : Blood Pressure : */* mmHG Vent. Rate : 66 BPM Atrial Rate : 66 BPM P-R Int : 136 ms QRS Dur : 114 ms QT Int : 398 ms P-R-T Axes : 33 -46 79 degrees QTcB Int : 417 ms Sinus rhythm with occasional Premature ventricular complexes Dcjrd-Igomghdjh-Wvlti Abnormal ECG Confirmed by Robson Camacho ([id number]), fan mail editor LEONARDO SAUNDERS ([id number]) on 07/13/2024 7:02:07 AM Referred By: JONN Confirmed By: Robson Camacho
--- NOTE | 2024-07-10 15:40 | RAD_ITS ---
PROCEDURE: CHEST 1 VIEW (PORTABLE) 07/10/2024 REASON FOR EXAM: CHEST PAIN TECHNIQUE: Frontal view of the chest. COMPARISON: None. FINDINGS: Heart: Top-normal heart size for technique. Mediastinum: Mild central vascular prominence.. Prominence of the RIGHT pulmonary artery could reflect pulmonary arterial hypertension. Question a few tiny pulmonary Lungs/pleura: Slight hypoinflation with vascular crowding. No convincing focal consolidation. No sizeable pleural effusion or visible pneumothorax. Question a few small nodules up to 0.8 cm in the lateral subpleural LEFT lung base. Bones: Unremarkable. Lines and support devices: None. Other: None. RAD/Chest 1 View (Portable) IMPRESSION: 1. Slightly hypoinflated exam. Mild central vascular prominence without overt pulmonary edema. 2. Question a few small nodules up to 0.8 cm. Compare with any available outsi de imaging to evaluate stability, and if unavailable, recommend outpatient CT chest. 3. Additional description as above. Reading Location: [id number]
[2024-07-10 15:49] LABS: Absolute Lymphocyte Count 2.63 X10^3/uL (0.83-4.51); Absolute Neutrophil Count 10.8 X10^3/uL (2.0-7.7); Basophil# 0.05 X10^3/uL; Basophil% 0.3 % (0-1); Eosinophil# 0.02 X10^3/uL; Eosinophils% 0.1 % (0-5); Hematocrit 39.2 % (40-54); Hemoglobin 13.7 g/dL (13.0-16.5); Lymphocyte # 2.63 X10^3/ul (0.83-4.51); Lymphocyte % 17.7 % (19-41); Mean Corp Hgb Conc 34.9 g/dL (32-36); Mean Corpuscular Hgb 30.6 pg (27.0-32.0); Mean Corpuscular Volume 87.5 fL (80-94); Mean Platelet Vol. 10.6 fl (6.2-12.0); Monocyte# 0.98 X10^3/uL; Monocyte% 6.6 % (0-10); NRBC Flagged by Analyzer 0 % (0-5); Neutrophil # 10.79 X10^3/uL (2.7-7.7); Neutrophil % 72.7 % (47-70); Platelet Count 212 K/mm3 (150-450); RBC Distribution Width CV 14.1 % (11.6-14.6); RBC Distribution Width SD 45.3 fl (35.1-43.9); Red Blood Count 4.48 M/mm3 (4.6-6.2); White Blood Count 14.9 K/mm3 (4.4-11.0)
--- NOTE | 2024-07-10 16:28 | CON.PCM.CA_ITS ---
Assessment & Plan Assessment/Plan (1) Atrial fibrillation with RVR: PLAN: Patient's initial EKG was consistent with atrial fibrillation with a rapid trickle response and a wide-complex tachycardia. After cardioversion due to the accelerated heart rate of 200 bpm the patient's EKG revealed WPW. It appears the patient was in this rhythm for approximately 12 hours. He did have some chest discomfort shortness of breath and some lightheadedness he has never experienced this prior to this timeframe. I did discuss the situation with Dr. Sol [facility] EP service. He is willing to take the patient in transfer for ablation in the next 24 to 48 hours. (2) Ajuso-Xvifaonsy-Fcgmz (WPW) syndrome: PLAN: Patient has WPW on his EKG after the cardioversion. He will be transferred to [facility] service for definitive therapy. (3) Chest pain: QUALIFIERS: Chest pain type: unspecified Qualified Code(s): R07.9 - Chest pain, unspecified PLAN: Patient's chest discomfort is most probably related to the tachycardia he was going some 200 bpm he did have some symptoms of lightheadedness and shortness of breath. Troponins are still pending at this time but I suspect they may be slightly elevated. The patient does have a history of diabetes which is well-controlled with metformin recent hemoglobin A1c was 6.8. He also has his blood pressure treated with hydrochlorothiazide which has been well- controlled. Patient does not smoke. He is hyperlipidemic on medical therapy. He does not know of any first-degree relatives. The patient is aerobically active he rides a bike routinely he did 35 miles in 1 day 2 weeks ago. He had no restrictions doing his 35 mile ride. (4) Diabetes: QUALIFIERS: Diabetes mellitus type: type 2 Diabetes mellitus jail insulin use: without general pediatrician use Diabetes mellitus complication status: without complication Qualified Code(s): E11.9 - Type 2 diabetes mellitus without complications PLAN: Patient is diabetes is treated with metformin diet and exercise. He is very active riding his bike which she did 35 miles 2 weeks ago. (5) Hypertension: QUALIFIERS: Hypertension type: primary hypertension Qualified Code(s): I10 - Essential (primary) hypertension PLAN: Blood pressure is well-controlled on hydrochlorothiazide. PLAN: Plan 1. Await final lab results for the troponin. 2. Have made arrangements for the patient to be transferred to [facility] to the cardiology inpatient service for planned ablation in the next 24 to 48 hours. 3. Patient will follow-up following his definitive therapy with the [facility] or [facility] which ever he prefers. HPI Consult Data Date of Consult: 07/10/24 HPI Narrative Reason for Consultation: WPW with atrial fibrillation. HPI Narrative: GUILHERME LOJA JR, is a 69 M who presents with a wide-complex irregularly irregular tachycardia. The patient had noted early this morning that he was feeling palpitations. He drank a cup of coffee at about 4 AM he works third shift. This is usual for him to drink coffee at 4 AM. He actually walked home after his shift and came to the emergency department in the early afternoon hours. By that time he felt he had been in this rhythm for approximately 12 hours. He did note some occasional chest discomfort along with the shortness of breath. The patient's blood pressure was measured at over 200 bpm. An EKG showed a wide- complex tachycardia with an irregularly irregular rate. At times it did not seem to transiently break and then revert right back into atrial fibrillation with a right complex. Given the patient's heart rate of 200 bpm he was electively cardioverted. Once cardioverted the EKG was consistent with sinus rhythm and a WPW pattern. He has positive delta waves in the V1 through V3 leads. The patient was symptomatic and that he developed shortness of breath and some lightheadedness. He did not pass out or have near syncope. He has never had an event like this prior and he has been very active he rides bicycles. He actually rode 35 miles 2 weeks ago without any restrictions. The patient does have a history of hypertension and hyperlipidemia both of which are treated he was recently evaluated last week in his primary care office all of his lab work was good his hemoglobin A1c was 6.8. His blood pressure has been well- controlled and he is on atorvastatin. His only other medication is hydrochlorothiazide. The patient is status post right ankle fixation several years ago at [facility]. Currently we are awaiting laboratory evaluation to be completed. I did discuss this with the EP service at [facility] and they are willing to take the patient in transfer for potential ablation tomorrow. The patient will be transferred to the cardiac service at [facility]. [facility] Medical History (Updated 07/10/24 @ 16:[address] Robson Camacho MD) Hypertension Diabetes Medical History no medical history Home Medications ?Medication ?Instructions ?Recorded ?Last Taken ?Type atorvastatin 20 mg tablet 20 mg PO DAILY 07/27/2206/26 History metformin 500 mg tablet 500 mg PO BID 07/27/2207/10 History hydrochlorothiazide 25 mg tablet 25 mg PO DAILY 07/10/24 History Allergy/AdvReac Type Severity Reaction Status Date / Time onion Allergy Nausea/Vom/ Verified 07/10/24 14:48 Diarrhea Family History Other Arthritis Myocardial infarction Family History no significant family his Surgical History H/O ankle fusion Surgical History no surgical history Social History Smoking Status: Never smoker alcohol intake: never what type of physical activity do you participate in: bicycling ROS Constitutional Constitutional: Reports as per HPI Eyes Eyes: Reports systems reviewed and no addt'l complaints, except as documented ENT HEENT: Reports systems reviewed and no addt'l complaints, except as documented Cardiovascular Cardiovascular: Reports as per HPI Respiratory/Chest Respiratory/Chest: Reports as per HPI Physical Exam Const alert and oriented x3 HEENT normocephalic Eyes EOMs intact bilaterally Neck no JVD and no carotid bruits Chest inspection of chest normal Resp normal respiratory effort and clear to auscultation bilaterally Cardio Rate: regular rate Rhythm: regular rhythm Heart Sounds: S1 normal and S2 normal; Negative for click, gallop or murmur GI soft to palpation and non-tender Extremity no pedal edema Extremity Narrative: Deformity noted of his right ankle. Skin Skin Narrative: Hyperpigmentation noted in his right lower extremity. Neuro Neuro Narrative: Alert and oriented x 3 Psych mental status grossly normal Risk Stratification Risk Stratification Applicable: No Charges/Coding Visit Charges Inpatient E&M: 15919 Init Hosp L2 Objective Data Vital Signs: Vital Signs Temp Pulse Resp BP Pulse Ox O2 Del Method O2 Flow Rate 98 F 56 L 16 123/73 H 97 Room Air 2.5 07/10/24 14:46 07/10/24 16:00 07/10/24 16:00 07/10/24 16:00 07/10/24 16:00 07/10/24 16:00 07/10/24 15:28 Oxygen Flow Rate (L/min) [1 ( 2.5 Initial Baseline)] Oxygen Flow Rate (L/min) 2.5 Oxygen Delivery Method [1 ( Nasal Cannula Initial Baseline)] Oxygen Delivery Method Room Air Weight: 225 lb 15.581 oz Body Mass Index (BMI) 30.6 Lab / Micro Data Attestation: I reviewed the patient's lab results. 07/10/24 14:47 07/10/24 14:47 Labs: Laboratory Results - last 24 hr 07/10/24 14:47: WBC 14.9 H, RBC 4.48 L, Hgb 13.7, Hct 39.2 L, MCV 87.5, MCH 30.6, MCHC 34.9, RDW Std Deviation 45.3 H, RDW Coeff of David 14.1, Plt Count 212, MPV 10.6, Immature Gran % (Auto) 2.600 H, Neut % (Auto) 72.7 H, Lymph % (Auto) 17.7 L, Robertson % (Auto) 6.6, Eos % (Auto) 0.1, Baso % (Auto) 0.3, Absolute Neuts (auto) 10.8 H, Absolute Lymphs (auto) 2.63, Nucleated RBC % 0 Rhythm Strip Rhythm Strip: Sinus Rhythm Rate: 65 Ectopy: None Cardiology Labs/Tests 07/10/24 14:47: WBC 14.9 H, RBC 4.48 L, Hgb 13.7, Hct 39.2 L, MCV 87.5, MCH 30.6, MCHC 34.9, Plt Count 212, MPV 10.6, Immature Gran % (Auto) 2.600 H, Neut % (Auto) 72.7 H, Lymph % (Auto) 17.7 L, Robertson % (Auto) 6.6, Eos % (Auto) 0.1, Baso % (Auto) 0.3, Absolute Neuts (auto) 10.8 H, Nucleated RBC % 0 Rhythm: EKG: ECHO: Stress Test: Cardiac Cath: PCI: CT Surgery: Holter monitor: EPS: PPM: CXR: Chest CT Scan: Radiography Diagnostic Testing: Radiology Impression Chest X-Ray 07/10/24 15:40 IMPRESSION: 1. Slightly hypoinflated exam. Mild central vascular prominence without overt pulmonary edema. 2. Question a few small nodules up to 0.8 cm. Compare with any available outside imaging to evaluate stability, and if unavailable, recommend outpatient CT chest. 3. Additional description as above. Reading Location: [facility] EKG Initial EKG: Attestation: I personally reviewed and interpreted this EKG as follows: (Atrial fibrillation with a wide-complex rapid ventricular response. Heart rates in the 200 to 225 bpm range at times.)
[2024-07-10 16:40] LABS: Anion Gap 17 (5-15); BUN 56 mg/dL (4-19); BUN/Creat Ratio 33.2 RATIO (10-20); Carbon Dioxide 21.7 mmol/L (21.0-32.0); Chloride 96 mmol/L (98-108); Creatinine, Serum 1.67 mg/dL (0.70-1.20); EST Glomerular Filtration Rate 44 (>60); Estimated Creatinine Clearance 52.43 ml/min (50-250); Glucose 373 mg/dL (70-99); Potassium 4.6 mmol/L (3.3-5.1); Sodium Level 135 mmol/L (133-145); Troponin T High Sensitivity 73 ng/L (<=22)
[2024-07-10 17:30] LABS: Troponin T High Sens 2 HR 58 ng/L (<=22)
[2024-07-10 17:42] LABS: Carboxyhemoglobin Order ORDER TUBE
[2024-07-10 18:18] LABS: Carboxyhemoglobin Frac (CO) 2.9 % (0.0-1.5)
[2024-07-10 19:14] LABS: Troponin T High Sens 4 HR 57 ng/L (<=22)
--- NOTE | 2024-07-10 20:29 | ED.RN ---
REPORT CALLED TO GILBERT QUILES AT [facility].
--- NOTE | 2024-07-10 20:30 | CM.ED ---
Social work Patient and patient's are known to this SW via previous employment and patient's door was open as SW was passing by. SW entered patient's room and spoke with patient and patient's . SW provided empathic support and encouragement as patient was being transferred to a higher level of care for surgery. Patient and patient's expressed gratitude for SW stopping in; no needs expressed. Brie Linares, PAPER TUBE MACHINE OPERATOR, STRING STUDIES DIRECTOR
== END 2024-07-10 21:28 | disposition short-term general hospital (02) ==
PROVIDERS: Emergency Provider Emergency Medicine; PCP Family Medicine; Visit Provider Emergency Medicine
DX: I48.91 Unspecified atrial fibrillation (principal); I47.29 Other ventricular tachycardia; E11.9 Type 2 diabetes mellitus without complications; R79.89 Other specified abnormal findings of blood chemistry; Z79.84 Long term (current) use of oral hypoglycemic drugs; I10 Essential (primary) hypertension; E78.5 Hyperlipidemia, unspecified; Z79.899 Other long term (current) drug therapy; I45.6 Pre-excitation syndrome
CPT/HCPCS: 71045; 80048; 82375; 84484; 85025; 92960; 93005; 96374; 99285; A4216

== ENCOUNTER → 2024-12-27 | Outpatient (CLI) | payer OTHER, SELFPAY ==
[2024-12-27 12:38] LABS: AST(SGOT) 17 U/L (<=37); Alanine Aminotransfer ALT/SGPT 14 U/L (<=46); Albumin, Serum 4.1 g/dL (3.4-4.8); Alkaline Phosphatase 106 U/L (40-129); Anion Gap 13 (5-15); BUN 27 mg/dL (4-19); BUN/Creat Ratio 20.7 RATIO (10-20); Calcium,Total 9.7 mg/dL (7.6-11.0); Carbon Dioxide 24.0 mmol/L (21.0-32.0); Chloride 100 mmol/L (98-108); Cholesterol 114 mg/dL (<=200); Globulin 3.5 g/dL (2.2-4.2); Glucose 154 mg/dL (70-99); Low Density Lipoprotein Calc. 47 mg/dL; Potassium 5.0 mmol/L (3.3-5.1); Triglycerides 122 mg/dL; Very Low Density Lipoprotein 24 mg/dL (5-40); cholesterol:hdl ratio screen 2.66
[2024-12-27 13:52] LABS: Creatinine, Urine (random) 104.00 mg/dL (39.00-259.00); Microalbumin,Random Urine 37.7 mg/L (<20 mg/L)
== END | disposition home or self-care (01) ==
PROVIDERS: PCP Family Medicine; Referring Provider Family Medicine; Visit Provider Family Medicine
DX: E11.40 Type 2 diabetes mellitus with diabetic neuropathy, unspecified (principal)
CPT/HCPCS: 36415; 80053; 80061; 82043; 82570; 84156